=== PATIENT | female | born 1935 | race Caucasian/White ===

== ENCOUNTER 2016-07-05 08:17 | Inpatient (IN) | payer OTHER, MEDICARE ==
[~2016-07-05] VITALS: Ht 152.4 cm; Wt 56.6 kg
[2016-07-05] VITALS (21 sets, daily range): BP systolic 114–211; BP diastolic 54–99; PULSE 64–98; RESP 14–17; TEMP 96.8–97.9; O2SAT 97–100
[~2016-07-05 08:17] MED LIST: APIX5TAB PO; ATOR40TA16 PO; CARD240C6 PO; D31000CA; FURO20TA PO; HYDR50TA15 PO; LOSA100T PO; NOVOLOGSS SQ; POTA-243 PO
[2016-07-05] MEDS ORDERED: ETOMIDATE 20 MG/10 ML VIAL ONE (08:21)
[2016-07-05] MEDS ORDERED: SUCCINYLCHOLINE CHLORIDE 200 MG/10 ML VIAL ONE (08:22)
[2016-07-05] MEDS ORDERED: PROPOFOL 1000 MG/100 ML INJ 100 ML ONE (08:24)
[2016-07-05] MEDS ORDERED: niCARdipine INJ 25 MG in SODIUM CHLOR 0.9% 250 ML INJ 250 ML IV SCH (08:45)
[2016-07-05] MEDS ORDERED: ETOMIDATE 20 MG/10 ML VIAL IVP ONE (08:45)
[2016-07-05] MEDS ORDERED: SUCCINYLCHOLINE CHLORIDE 200 MG/10 ML VIAL IVP ONE (08:45)
[2016-07-05 09:08] LABS: AUTOMATED NEUTROPHIL # 12.6 TH/MM3 (1.8-7.7); BASOPHIL % 0.3 % (0.0-2.0); HEMATOCRIT 39.7 % (35.0-46.0); LYMPH % 7.1 % (9.0-44.0); MEAN CELL VOLUME 89.2 FL (80.0-100.0); MEAN CORPUSCULAR HEMOGLOBIN 29.7 PG (27.0-34.0); MEAN CORPUSCULAR HGB CONC 33.3 % (32.0-36.0); MONO % 3.7 % (0.0-8.0); NEUT % 88.9 % (16.0-70.0); PLATELET COUNT 312 TH/MM3 (150-450); RED BLOOD COUNT 4.45 MIL/MM3 (4.00-5.30); RED CELL DISTRIBUTION WIDTH 15.2 % (11.6-17.2); WHITE BLOOD COUNT 14.2 TH/MM3 (4.0-11.0)
--- NOTE | 2016-07-05 09:14 | RADRPT ---
EXAM DATE/TIME: 07/05/2016 08:38 [facility] COMPARISON: CHEST SINGLE AP, December 16, 2015, 3:38. INDICATIONS : Post intubation. MEDICAL HISTORY : Hypertension. Diabetes mellitus type 2. SURGICAL HISTORY : Hysterectomy. Bilateral knee surgery. ENCOUNTER: Initial ACUITY: 1 day PAIN SCORE: Non-responsive. LOCATION: Bilateral chest FINDINGS: Portable AP view of the chest demonstrates a normal-sized cardiac silhouette. Endotracheal tube dista l tip is at the aortic knob level measuring 4 cm from the ivonne. Nasogastric tube courses beyond the GE junction. No effusion, consolidation, or pneumothorax is visualized. Bones and soft tissues demon strate no acute finding. CONCLUSION: Endotracheal tube in appropriate position with tip measuring 4 cm from the ivonne. Otherwise, no acut e cardiopulmonary abnormality is identified. Issac Shipman MD on July 05, 2016 at 9:07 Board Certified Radiologist. This report was verified electronically.
--- NOTE | 2016-07-05 09:14 | RADRPT ---
EXAM DATE/TIME: 07/05/2016 08:56 [facility] COMPARISON: CT BRAIN W/O CONTRAST, December 16, 2015, 6:58. INDICATIONS : Altered mental status. RADIATION DOSE: 56.35 CTDIvol (mGy) MEDICAL HISTORY : Diabetes mellitus type 2. Cardiovascular disease Hypertension. SURGICAL HISTORY : Hysterectomy. ENCOUNTER: Initial ACUITY: 1 day PAIN SCALE: Non-responsive LOCATION: cranial TECHNIQUE: Multiple contiguous axial images were obtained of the head. Using automated exposure control and adj ustment of the mA and/or kV according to patient size, radiation dose was kept as low as reasonably a chievable to obtain optimal diagnostic quality images. FINDINGS: Comparison is December 2015. There is a remote lacunar infarct in left basal ganglia and left white m atter. Chronic white matter ischemic changes are relatively stable. No mass effect or midline shift. Stable ventricular size. Basal ganglia calcifications present. CONCLUSION: 1. Remote lacunar infarct left basal ganglia. Chronic white matter ischemic changes. No acute finding compared with December 2015. Silvio Ochoa MD on July 05, 2016 at 9:08 Board Certified Radiologist. This report was verified electronically.
[2016-07-05 09:15] LABS: HEMO FLAGS DIFF FINAL
[2016-07-05 09:16] LABS: APTT (PATIENT) 23.3 SEC (24.3-30.1); PROTHROMBIN TIME - PATIENT 10.5 SEC (9.8-11.6)
[2016-07-05] MEDS: PROPOFOL 1000 MG/100 ML INJ 100 ML IV SCH ×2 (09:16→14:42)
--- NOTE | 2016-07-05 09:19 | PD ---
HPI Chief Complaint: Altered Mental Status Time Seen by Provider: 08:31 Travel History International Travel<30 days: No Contact w/Intl Traveler<30days: No Traveled to known affect area: No History of Present Illness HPI Due to year-old female presents by ambulance with decreased mental status. They state that per the she had an acute change in her mentation since he had seen her last night and she had got out of bed. History is significantly limited. She was GCS 5 in route and would open her eyes to pain PFSH Past Medical History Narrative Medical By records Autoimmune Disease: No Cancer: No Cardiovascular Problems: Yes High Cholesterol: Yes Cerebrovascular Accident: Yes Diabetes: Yes Diminished Hearing: No Endocrine: Yes Genitourinary: Yes Headaches: Yes Hypertension: Yes Immune Disorder: No Implanted Vascular Access Dvce: Yes Musculoskeletal: Yes (BI LAT KNEE REPL) Neurologic: Yes Psychiatric: No Reproductive: No Respiratory: No Past Surgical History Narrative Surgical By records Eye Surgery: Yes (BILAT CATARACT) Genitourinary Surgery: Yes (MARY) Hysterectomy: Yes Joint Replacement: Yes (BILAT KNEE) Other Surgery: Yes Social History Alcohol Use: No Tobacco Use: No Substance Use: No Allergies-Medications (Allergen,Severity, Reaction): Coded Allergies: No Known Allergies (Unverified , 12/12/15) Reported Meds & Prescriptions Reported Meds & Active Scripts Active Novolog Inj (Insulin Aspart) 100 Unit/Ml Inj 1 Units SQ ACHS SLIDING SCALE 30 Days Hydralazine (Hydralazine HCl) 50 Mg Tab 50 Mg PO Q6H 30 Days Furosemide 20 Mg Tab 20 Mg PO DAILY 30 Days Eliquis (Apixaban) 5 Mg Tab 10 Mg PO BID 30 Days Cardizem CD 24 HR (Diltiazem CD 24 HR) 240 Mg Caper 240 Mg PO DAILY 30 Days Reported D3 (Cholecalciferol) 1,000 Unit Cap Klor-Con 10 (Potassium Chloride) 10 Meq Tab 10 Meq PO DAILY Atorvastatin (Atorvastatin Calcium) 40 Mg Tab 40 Mg PO HS Losartan (Losartan Potassium) 100 Mg Tab 100 Mg PO DAILY Review of Systems ROS Limitations: Clinical Condition Physical Exam Exam Limitations: Clinical Condition Narrative General: In severe distress, focused exam performed Skin: Warm and dry Eyes: Pupils equal at 2 mm Neck: Trachea midline Cardiovascular: Regular rate and rhythm Respiratory: Shallow respiratory effort noted, clear to auscultation bilaterally at apices Abdomen: Soft, nondistended Extremities: No edema noted Neuro: Moans to pain, opens eyes to pain, no movement noted Data Data Last Documented VS Vital Signs Date Time Temp Pulse Resp B/P Pulse Ox O2 Delivery O2 Flow Rate FiO2 07/05/16 09:34 74 16 114/54 98 Ventilator 10 07/05/16 09:09 97.5 07/05/16 09:00 50 Orders Etomidate Inj (Amidate Inj) (07/05/16 08:21) Succinylcholine Inj (Quelicin Inj) (07/05/16 08:22) Propofol 1000 Mg/100 Ml Inj (Diprivan 10 (07/05/16 08:24) Thyroid Stimulating Hormone (07/05/16 08:31) Magnesium (Mg) (07/05/16 08:31) Phosphorus (Po4) (07/05/16 08:31) Complete Blood Count With Diff (07/05/16 08:31) Comprehensive Metabolic Panel (07/05/16 08:31) Creatine Kinase (Cpk) (07/05/16 08:31) Ckmb (Isoenzyme) Profile (07/05/16 08:31) Troponin I (07/05/16 08:31) Urinalysis - C+S If Indicated (07/05/16 08:31) Act Partial Throm Time (Ptt) (07/05/16 08:31) Prothrombin Time / Inr (Pt) (07/05/16 08:31) Ct Brain W/O Iv Contrast(Rout) (07/05/16 ) B-Type Natriuretic Peptide (07/05/16 08:31) Arterial Blood Gas (Abg) (07/05/16 ) Chest, Single Ap (07/05/16 ) Electrocardiogram (07/05/16 ) Blood Culture (07/05/16 08:31) Iv Access Insert/Monitor (07/05/16 08:31) Ecg Monitoring (07/05/16 08:31) Oximetry (07/05/16 08:31) Type And Screen (07/05/16 08:31) Insert Temp Sensing Grimm Cath (07/05/16 08:31) Lactic Acid (07/05/16 08:31) Propofol 1000 Mg/100 Ml Inj (Diprivan 10 (07/05/16 08:45) ^ Infusion (07/05/16 08:31) RASS (07/05/16 08:31) Neurological Rass Scale BRADY.Q2H (07/05/16 08:31) Etomidate Inj (Amidate Inj) (07/05/16 08:45) Succinylcholine Inj (Quelicin Inj) (07/05/16 08:45) Sodium Chloride 0.9% Flush (Ns Flush) (07/05/16 08:45) Ng Gastric Tube Insert/Monitor (07/05/16 08:33) Nicardipine Inj (Cardene Inj) (07/05/16 08:45) Sodium Chlor 0.9% 1000 Ml Inj (Ns 1000 M (07/05/16 09:30) Urine Culture (07/05/16 08:40) Piperacil-Tazo 4.5 Gm Premix (Zosyn 4.5 (07/05/16 09:43) Sodium Chlor 0.9% 1000 Ml Inj (Ns 1000 M (07/05/16 09:45) Sodium Bicarbonate 8.4% Inj (Sodium Bica (07/05/16 09:45) Admit Order (Ed Use Only) (07/05/16 09:45) Labs Laboratory Tests Test 07/05/16 07/05/16 08:40 09:25 White Blood Count 14.2 TH/MM3 Red Blood Count 4.45 MIL/MM3 Hemoglobin 13.2 GM/DL Hematocrit 39.7 % Mean Corpuscular Volume 89.2 FL Mean Corpuscular Hemoglobin 29.7 PG Mean Corpuscular Hemoglobin 33.3 % Concent Red Cell Distribution Width 15.2 % Platelet Count 312 TH/MM3 Mean Platelet Volume 9.1 FL Neutrophils (%) (Auto) 88.9 % Lymphocytes (%) (Auto) 7.1 % Monocytes (%) (Auto) 3.7 % Eosinophils (%) (Auto) 0.0 % Basophils (%) (Auto) 0.3 % Neutrophils # (Auto) 12.6 TH/MM3 Lymphocytes # (Auto) 1.0 TH/MM3 Monocytes # (Auto) 0.5 TH/MM3 Eosinophils # (Auto) 0.0 TH/MM3 Basophils # (Auto) 0.0 TH/MM3 CBC Comment DIFF FINAL Differential Comment Prothrombin Time 10.5 SEC Prothromb Time International 1.0 RATIO Ratio Activated Partial 23.3 SEC Thromboplast Time Urine Color YELLOW Urine Turbidity HAZY Urine pH 5.5 Urine Specific [place] 1.013 Urine Protein 100 mg/dL Urine Glucose (UA) NEG mg/dL Urine Ketones 10 mg/dL Urine Occult Blood NEG Urine Nitrite POS Urine Bilirubin NEG Urine Urobilinogen LESS THAN 2.0 MG/DL Urine Leukocyte Esterase NEG Urine RBC 3 /hpf Urine WBC 2 /hpf Urine Squamous Epithelial 1 /hpf Cells Urine Bacteria MANY /hpf Urine Mucus FEW /lpf Microscopic Urinalysis Comment CULTURE INDICATED Sodium Level 142 MEQ/L Potassium Level 3.7 MEQ/L Chloride Level 109 MEQ/L Carbon Dioxide Level 18.8 MEQ/L Anion Gap 14 MEQ/L Blood Urea Nitrogen 29 MG/DL Creatinine 1.88 MG/DL Estimat Glomerular Filtration 26 ML/MIN Rate Random Glucose 220 MG/DL Lactic Acid Level 1.3 mmol/L Calcium Level 9.9 MG/DL Phosphorus Level 2.9 MG/DL Magnesium Level 2.3 MG/DL Total Bilirubin 0.4 MG/DL Aspartate Amino Transf 25 U/L (AST/SGOT) Alanine Aminotransferase 23 U/L (ALT/SGPT) Alkaline Phosphatase 103 U/L Total Creatine Kinase 49 U/L Troponin I 0.06 NG/ML B-Type Natriuretic Peptide 392 PG/ML Total Protein 7.0 GM/DL Albumin 3.9 GM/DL Thyroid Stimulating Hormone 1.850 uIU/ML 3rd Gen Blood Type O POSITIVE Antibody Screen NEGATIVE Blood Bank Comment Blood Gas Puncture Site RT RADIAL Blood Gas Patient Temperature 98.6 Blood Gas HCO3 16 mmol/L Blood Gas Base Excess -7.6 mmol/L Blood Gas Oxygen Saturation 98 % Arterial Blood pH 7.42 Arterial Blood Partial 25 mmHg Pressure CO2 Arterial Blood Partial 282 mmHG Pressure O2 Arterial Blood Oxygen Content 18.0 Vol % Arterial Blood 0.9 % Carboxyhemoglobin Arterial Blood Methemoglobin 1.1 % Blood Gas Hemoglobin 12.6 G/DL Oxygen Delivery Device VENTILATOR Blood Gas Ventilator Setting AC12/500/5PEEP Blood Gas Inspired Oxygen 50 % MDM Medical Decision Making Medical Screen Exam Complete: Yes Emergency Medical Condition: Yes Medical Record Reviewed: Yes (past history confirmed) Interpretation(s) CBC & BMP Diagram 07/05/16 08:40 Last [address] 07/05/16 0000 Signed Impressions: Service Date/Time: June 08:56 - CONCLUSION: 1. Remote lacunar infarct left basal ganglia. Chronic white matter ischemic changes. No acute finding compared with December 2015. Silvio Ochoa MD Chest X-Ray 07/05/16 0000 Signed Impressions: Service Date/Time: June 08:38 - CONCLUSION: Endotracheal tube in appropriate position with tip measuring 4 cm from the ivonne. Otherwise , no acute cardiopulmonary abnormality is identified. Issac Shipman MD EKG is sinus rhythm at 100 without STEMI criteria but limited with wandering baseline especially V1 Differential Diagnosis Bleed, stroke, mass, UTI, sepsis Narrative Course Patient arrived with depressed GCS and was intubated for airway protection. Patient started on propofol given hypertension, Will check blood work, imaging, urinalysis and closely monitor Patient's blood pressure remained elevated so Cardene was added and I went with patient to CT. No large bleed noted Updated patient's and he states that she is wheelchair-bound but will talk and interact with him at home. He states he is working on setting up detention care for her to increase her amount of care needed. He states that she wasn't complaining about anything yesterday but had not gotten out of bed so he called the ambulance. updated and agrees to admit, bp dropping to quickly so cardene decreased and help until sbp greater or equal to 180 given no intracranial bleed on ct and possible stroke versus hypertensive encephalopathy Critical Care Narrative Aggregate critical care time was 45 minutes. Time to perform other separately billable procedures was not included in the critical care time. My time did not include minutes spent treating any other patients simultaneously or on activities that did not directly contribute to the patient's treatment. The services I provided to this patient were to treat and/or prevent clinically significant deterioration that could result in: shock, I provided critical care services requiring my management, as noted below: Chart data review, documentation time, medication orders and management, vital sign assessments/reviewing monitor data, ordering and reviewing lab tests, ordering and interpreting/reviewing x-rays and diagnostic studies, care of the patient and discussion of the patient with the admitting physicians. Procedures Procedure Narrative Emergently performed: INTUBATION: The patient was put in optimal position for the procedure. Rapid sequence intubation was initiated by me using 20 milligrams of etomidate IV and 100 milligrams of succinylcholine IV. The patient was intubated with a 7.5 cuffed endotracheal tube. Tube placement was confirmed by visualization of the tube and balloon passing through the cords, capnometry and subsequent chest x- ray. Breath sounds were equal and well aerated bilaterally postintubation. No breath sounds over stomach. Patient tolerated procedure well. Sepsis Criteria SIRS Criteria (2 or more): Heart rate over 90, WBC > 64309, < 4000 or > 10% bands Sepsis Criteria (SIRS+source): Infect source susp/known Criteria Outcome: Meets sepsis criteria Physician Communication Physician Communication dr mak agrees to admit, states needs mri Diagnosis Primary Impression: Metabolic encephalopathy Additional Impressions: Acute respiratory failure Qualified Code: J96.00 - Acute respiratory failure, unspecified whether with hypoxia or hypercapnia UTI (urinary tract infection) Qualified Code: N39.0 - Urinary tract infection without hematuria, site unspecified Admitting Information Admitting Physician Requests: Admit Cherry Aquino MD July 05, 2016 09:19
[2016-07-05 09:22] LABS: BACTERIA, URINE MANY /hpf; BLOOD, URINE NEG (NEG); COMMENT (UR) CULTURE INDICATED; CULTURE IF INDICATED CULTURE INDICATED; GLUCOSE,URINE NEG (NEG); KETONE, URINE 10 mg/dL (NEG); MUCUS URINE FEW /lpf (OCC); PH, URINE 5.5 (5.0-8.5); SQUAMOUS EPITHELIAL CELL URINE 1 /hpf (0-5); URINE COLOR YELLOW (YELLW/STRAW)
[2016-07-05 09:29] LABS: ALT (GPT) 23 U/L (10-53); ANION GAP 14 MEQ/L (5-15); AST (GOT) 25 U/L (15-37); BICARBONATE 18.8 MEQ/L (21.0-32.0); BLOOD UREA NITROGEN 29 MG/DL (7-18); CHLORIDE 109 MEQ/L (98-107); GLOMERULAR FILTRATION RATE 26 ML/MIN (>89); MAGNESIUM 2.3 MG/DL (1.5-2.5); POTASSIUM 3.7 MEQ/L (3.5-5.1); SODIUM (NA) 142 MEQ/L (136-145)
[2016-07-05 09:30] LABS: BLOOD GAS BASE EXCESS -7.6 mmol/L (-2-2); BLOOD GAS CARBOXYHEMOGLOBIN 0.9 % (0-4); BLOOD GAS HCO3 16 mmol/L (22-26); BLOOD GAS METHEMOGLOBIN 1.1 % (0-2); BLOOD GAS O2 HGB SATURATION 98 % (90-100); BLOOD GAS PCO2 25 mmHg (38-42); BLOOD GAS PO2 282 mmHG (61-120); BLOOD GAS TOTAL HGB 12.6 G/DL (12.0-16.0); CRITICAL VALUE YES; DRAW SITE RT RADIAL; FIO2 50 %; NUMBER OF ARTERIAL PUNCTURES 1; OXYGEN DEVICE VENTILATOR; STAT YES; TEMP CORR TO 98.6; ULNAR PULSE Y; VENT SETTINGS AC12/500/5PEEP
[2016-07-05] MEDS ORDERED: SODIUM CHLOR 0.9% 1000 ML INJ 1,000 ML IV ONE ×2 (09:30→09:45)
[2016-07-05 09:32] LABS: NITRITE,URINE POS (NEG)
[2016-07-05 09:40] LABS: ALKALINE PHOSPHATASE 103 U/L (45-117); TOTAL BILIRUBIN ADULT 0.4 MG/DL (0.2-1.0)
[2016-07-05 09:43] LABS: CREATINE KINASE 49 U/L (26-192)
[2016-07-05] MEDS ORDERED: PIPERACIL-TAZO 4.5 GM PREMIX 100 ML IV STA (09:43)
[2016-07-05] MEDS ORDERED: SODIUM BICARBONATE 8.4% INJ 50 MEQ/50 ML SYR IV PUSH ONE (09:45)
[2016-07-05] MEDS ORDERED: CHLORHEXIDINE GLUCONATE 2 % 1 PACK (2 CLOTHS) TOP PRN (10:30)
[2016-07-05] MEDS ORDERED: DEXTROSE 50% IN WATER 50 ML VIAL(D50) IV PRN (10:30)
[2016-07-05] MEDS ORDERED: PIPERACIL-TAZO 4.5 GM PREMIX 100 ML IV SCH (10:30)
[2016-07-05] MEDS ORDERED: GLUCAGON 1 MG/ML VIAL OTHER PRN (10:30)
[2016-07-05] MEDS ORDERED: SODIUM BICARBONATE 8.4% INJ 50 ML ONE (10:30)
[2016-07-05] MEDS ORDERED: MISCELLANEOUS NURSING INFORMATION XX SCH (10:30)
[2016-07-05] MEDS: HEPARIN SODIUM - SQ 10,000 UNITS/ML VIAL SQ SCH ×2 (11:00→23:44)
[2016-07-05] MEDS: RESP: ALBUTEROL 2.5 MG/IPRATROPIUM 0.5 MG NEB (SCH) INH ×3 (11:04→21:32)
[2016-07-05] MEDS: PANTOPRAZOLE SODIUM 40 MG VIAL IV SCH (11:08)
[2016-07-05] MEDS: INSULIN NovoLIN REGULAR SUPPLEMENTAL SCALE SQ SCH ×4 (11:25→23:00)
--- NOTE | 2016-07-05 12:35 | RADRPT ---
EXAM DATE/TIME: 07/05/2016 12:08 [facility] COMPARISON: No previous studies available for comparison. INDICATIONS : Bilateral leg swelling. MEDICAL HISTORY : Hypercholesterolemia. Hypertension. Osteoporosis. CVA. Renal disease. Diabetes. SURGICAL HISTORY : Hysterectomy. Bilateral cataract. Bilateral knee replacements. ENCOUNTER: Initial ACUITY: 1 day PAIN SCORE: Non-responsive LOCATION: Bilateral leg. TECHNIQUE: Venous ultrasound of the left and right leg was performed from the inguinal ligament to the proximal calf. Real-time, color Doppler and spectral tracing, compression and augmentation techniques were us ed. FINDINGS: RIGHT LEG: There is normal compressibility of the deep venous system from the inguinal region to the proximal ca lf. No echogenic clot is seen in the lumen of the common femoral, femoral, popliteal, and posterior tibial veins. There is a normal response of the venous system to proximal and distal augmentation an d respiration. LEFT LEG: There is normal compressibility of the deep venous system from the inguinal region to the proximal ca lf. No echogenic clot is seen in the lumen of the common femoral, femoral, popliteal, and posterior tibial veins. There is a normal response of the venous system to proximal and distal augmentation an d respiration. CONCLUSION: Normal examination. Issac Mead MD on July 05, 2016 at 12:33 Board Certified Radiologist. This report was verified electronically.
--- NOTE | 2016-07-05 12:45 | MH ---
cc: JANES ALLEN M.D. DATE OF ADMISSION: 07/05/2016 DATE OF : 1935, HISTORY OF PRESENT ILLNESS: The patient is an 80-year-old female with past medical history of dementia, hypertension, hyperlipidemia, TIA, diabetes mellitus and DVT of right lower extremity. She presented to the emergency department via ambulance with altered mental status. According to her she was unresponsive at 07:30 this morning and he called the -- and she was found to have Kathi Coma Scale score of 5, En route. The patient was intubated with etomidate, succinylcholine and placed on full mechanical ventilation for airway protection. A CT scan of the brain was obtained which showed a remote coronary infarct, left basal ganglia and chronic white matter ischemic changes. No acute findings identified. Her laboratory data showed leukocytosis with WBC of 14.2 and acute kidney injury with creatinine level of 1.88. Her lactic acid level measured at 1.3. ABG post intubation showed adenosine showed a pH of 7.42, CO2 25, pAO2 282, bicarb 16, saturation 98% on assist control ventilation with a rate of 12, tidal volume 500, PEEP of five and FIO2 50%. Chest x-ray Post intubation showed ET tube above the ivonne, otherwise no acute cardiopulmonary abnormalities identified. She was given 2 liters of crystalloids in the ER along with Zosyn and Sodium bicarb. On arrival as she was hypertensive with a blood pressure of 211/99 and initially the patient was placed on Cardene drip. However it was turned off post extubation a poor however it was turned off pump post intubation. Her current blood pressure is 189/85 with a pulse of 83. Fluid. Showed. PAST MEDICAL HISTORY: 1. No past medical history significant for dementia. 2. Hypertension. 3. Hyperlipidemia. 4. Diabetes mellitus. 5. History of deep venous thrombosis. 6. Right lower extremity. PAST SURGICAL HISTORY 1. Previous cataract surgery. 2. Previous a total abdominal hysterectomy. 3. Previous bilateral knee replacement. ALLERGIES NO KNOWN DRUG ALLERGIES. SOCIAL HISTORY Nonsmoker, nondrinker. REVIEW OF SYSTEMS As per as per HPI. The rest of the systems is limited. PHYSICAL EXAMINATION: Physical exam 80-year-old female. MEDICATIONS Medications include 1. NovoLog. 2. Insulin. 3. Hydralazine. 4. Lasix. 5. Cardizem CD Eliquis. 6. Losartan true. 7. Statin. 8. Vitamin D. REVIEW OF SYSTEMS As per HPI, review of systems limited. PHYSICAL EXAMINATION: Physical exam 80-year-old female intubated for airway infection. VITAL SIGNS: Temperature of 96.8, pulse of 83, blood pressure 189/85 currently saturation 96% vent setting assist control rate of 12, tidal line 500, PEEP of five, FIO2 50% in the ED with a HEAD, EYES, EARS, NOSE, AND THROAT: Atraumatic, normocephalic pupil equal and active to accommodation X on muscles intact. Conjunctivae pink. Nonicteric sclerae. Oral mucosa within normal. NECK: Supple. No JVD, adenopathy or thyromegaly. Trachea midline. Orally intubated. CHEST: Regular rate and rhythm. Normal S1-S2. No murmurs, rubs or gallops noted. LUNGS: Pulmonary exam bilateral equal entry. No rales or wheezing. ABDOMEN: Soft, nontender, no distension. Positive bowel sounds. EXTREMITIES: No cyanosis or edema. NEUROLOGIC: Intubated and sedated with Diprivan. LABORATORY DATA Sodium 42,003.7, chloride 109, CO2 18.8, BUN 29, creatinine 1.88, glucose of 220, lactic acid 1.3, troponin 0.06, BNP 392, TSH 1.85 WBCs 14.29, hemoglobin 13.2, hematocrit 39, platelet count 312, INR one, PT 10.5, PTT 23.3. RADIOGRAPHY Chest x-ray Post intubation showed ET tube above the ivonne. No acute cardiopulmonary abnormalities. CT scan of the brain showed old lipoma infarcts in no acute abnormalities identified. EKG showed sinus. He sinus rhythm with rate of 96 beats per minute. Nonspecific ST-T wave abnormalities. IMPRESSION 1. Vent dependent respiratory failure. 2. Encephalopathy. 3. Hypertensive urgency rule out press 4. Leukocytosis 5. Urinary tract infection. 6. Acute kidney injury. 7. Hyperglycemia with underlying history of diabetes mellitus. 8. Hyperlipidemia. 9. Dementia history. 10. Deep venous thrombosis. RECOMMENDATIONS 1. Continue Diprivan infusion for sedation and daily sedation vacation. 2. Monitor neuro status closely. 3. CT scan of the brain in the ER showed no acute intracranial abnormalities. 4. Will proceed with MRI of the brain without contrast. 5. Will be to rule out pressors syndrome 6. Will consult neurology service and will obtain an EEG. 7. Continue with vent support and maintain sats above 92%. 8. Bronchodilators informed DuoNeb q. six and will initiate ICU vent bundle. 9. Decrease tidal volume to 350. Monitor heart rate and blood pressure closely and maintain MAP above 60. 10. I will place on hydralazine 50 milligrams q. 8 hours. 11. Echocardiogram from December 2015 showed an ejection fraction of 65-70% with no regional wall motion abnormalities. 12. Monitor renal function Is and Os and avoid nephrotoxins. Continue with IV hydration will place on normal saline at 75 an hour. 13. Keep n.p.o. for now and place on Protonix 40 mg IV daily for GI prophylaxis. 14. Nutritional support and we will start tube feeds within next 24 hours if remains intubated. 15. Continue with empiric antibiotics in the form of Zosyn and monitor for signs of infections which include fever and WBC. Follow up on blood and urine cultures. 16. Place on sliding scale insulin medium scale with Accu-Chek q. 6-hour onset q. 4-hour for glycemic control. 17. A TSH measured 1.85 18. GI prophylaxis with Protonix 40 mg daily and DVT prophylaxis with SCDs and will resume Eliquis of 5 mg b.i.d. 19. We will place on a heparin 5000 units q. 12-hour. 20. Will obtain Doppler ultrasound bilateral lower extremity to rule out DVT. 21. The patient had ultrasound in December 2015 which showed a DVT of the right lower extremity. 22. Further recommendations will be based on hospital course. 23. Critical care time 40 minutes excluding procedures. MD REAGAN Martin/marissa /12:00 PM /12:17 PM DOM
[2016-07-05 14:39] LABS: BLOOD GAS BASE EXCESS -3.2 mmol/L (-2-2); BLOOD GAS CARBOXYHEMOGLOBIN 1.1 % (0-4); BLOOD GAS HCO3 22 mmol/L (22-26); BLOOD GAS METHEMOGLOBIN 1.5 % (0-2); BLOOD GAS O2 HGB SATURATION 96 % (90-100); BLOOD GAS OXYGEN CONTENT 17.3 Vol % (12.0-20.0); BLOOD GAS PCO2 40 mmHg (38-42); BLOOD GAS PO2 121 mmHg (61-120); BLOOD GAS TOTAL HGB 12.7 G/DL (12.0-16.0); CRITICAL VALUE NO; OXYGEN DEVICE VENTILATOR; TEMP CORR TO 98.6
[2016-07-05 14:40] LABS: DRAW SITE RT RADIAL; FIO2 40 %; NUMBER OF ARTERIAL PUNCTURES 1; STAT NO; ULNAR PULSE PRESENT; VENT SETTINGS AC/12/350/PEEP5
--- NOTE | 2016-07-05 16:12 | RADRPT ---
EXAM DATE/TIME: 07/05/2016 15:14 [facility] COMPARISON: MRI BRAIN W/O CONTRAST, December 16, 2015, 15:17. INDICATIONS : CVA. Found unresponsive. MEDICAL HISTORY : Diabetes mellitus type 2. Hypertension. Kidney disease. SURGICAL HISTORY : Hysterectomy. Total knee replacement, left. Total knee replacement, right. ENCOUNTER: Subsequent ACUITY: 1 day PAIN SCORE: Nonresponsive. LOCATION: head. TECHNIQUE: Multiplanar, multisequence MRI of the brain was performed without contrast. FINDINGS: Compare December 2015. There is moderate chronic ischemic change in the appearance of the white matte r with remote lacunar infarcts on the left. No recent infarct identified on the diffusion weighted im ages. There is cortical volume loss. No hydrocephalus. CONCLUSION: 1. No acute findings. Chronic white matter ischemic changes. No recent infarct. Basal ganglia calcifi cations. Silvio Ochoa MD on July 05, 2016 at 16:05 Board Certified Radiologist. This report was verified electronically.
--- NOTE | 2016-07-05 16:44 | EKG ---
Date Performed: 07/05/2016 Time Performed: 08:35:20 PTAGE: 80 years EKG: Sinus rhythm NONSPECIFIC ST & T-WAVE ABNORMALITY BORDERLINE ECG PREVIOUS TRACING : 12/16/2015 13.11 Compared to the previous tracing rate has increased DOCTOR: Sánchez Burr Interpretating Date/Time 07/05/2016 16:43:14
[2016-07-05] MEDS: PIPERACIL-TAZO 2.25 GM PREMIX 50 ML IV SCH (18:26)
[2016-07-05] MEDS: hydrALAZINE HCL 20 MG/ML VIAL IV PRN (21:40)
[2016-07-06] VITALS (19 sets, daily range): BP systolic 133–170; BP diastolic 62–80; PULSE 62–86; RESP 15–18; TEMP 97.4–98.6; O2SAT 97–100
[2016-07-06] MEDS: PROPOFOL 1000 MG/100 ML INJ 100 ML IV SCH (01:52)
[2016-07-06] MEDS: PIPERACIL-TAZO 2.25 GM PREMIX 50 ML IV SCH ×3 (01:52→17:04)
[2016-07-06] MEDS: INSULIN NovoLIN REGULAR SUPPLEMENTAL SCALE SQ SCH ×6 (03:00→23:00)
[2016-07-06] MEDS: CHLORHEXIDINE GLUCONATE 2 % 1 PACK (2 CLOTHS) TOP SCH (03:26)
[2016-07-06 04:38] LABS: BASOPHIL % 0.1 % (0.0-2.0); HEMATOCRIT 38.2 % (35.0-46.0); HEMO FLAGS DIFF FINAL; LYMPH % 3.6 % (9.0-44.0); LYMPHOCYTE # 0.7 TH/MM3 (1.0-4.8); MEAN CELL VOLUME 89.8 FL (80.0-100.0); MEAN CORPUSCULAR HGB CONC 32.3 % (32.0-36.0); MONO % 6.4 % (0.0-8.0); NEUT % 89.9 % (16.0-70.0); PLATELET COUNT 233 TH/MM3 (150-450); RED BLOOD COUNT 4.26 MIL/MM3 (4.00-5.30); RED CELL DISTRIBUTION WIDTH 15.1 % (11.6-17.2); WHITE BLOOD COUNT 18.9 TH/MM3 (4.0-11.0)
[2016-07-06] MEDS: RESP: ALBUTEROL 2.5 MG/IPRATROPIUM 0.5 MG NEB (SCH) INH ×4 (04:52→19:48)
[2016-07-06 04:59] LABS: BICARBONATE 24.2 MEQ/L (21.0-32.0)
[2016-07-06 05:07] LABS: POTASSIUM 2.8 MEQ/L (3.5-5.1)
[2016-07-06] MEDS: hydrALAZINE HCL 20 MG/ML VIAL IV PRN (05:35)
[2016-07-06] MEDS ORDERED: MAGNESIUM SULFATE INJ 2 GM in SODIUM CHLORIDE 0.9% INJ 96 ML IV PRN (07:45)
[2016-07-06] MEDS ORDERED: POTASSIUM PHOSPHATE MONOBASIC 500 MG TAB PO PRN (07:45)
[2016-07-06] MEDS ORDERED: MAGNESIUM OXIDE 400 MG TAB PO PRN (07:45)
[2016-07-06] MEDS ORDERED: POTASSIUM CHLOR 40 MEQ PREMIX 100 ML IV PRN ×2 (07:45)
[2016-07-06] MEDS ORDERED: POTASSIUM CHLORIDE 25 MEQ EFFERVESCENT TAB PO PRN (07:45)
[2016-07-06] MEDS ORDERED: POTASSIUM PHOSPHATE MONOBASIC 500 MG TAB PO/TUBE PRN (07:45)
[2016-07-06] MEDS ORDERED: MAGNESIUM SULFATE INJ 4 GM in SODIUM CHLORIDE 0.9% INJ 92 ML IV PRN (07:45)
[2016-07-06] MEDS ORDERED: SODIUM PHOSPHATE INJ 30 MMOL in SODIUM CHLOR 0.9% 250 ML INJ 240 ML IV PRN (07:45)
[2016-07-06] MEDS ORDERED: POTASSIUM CHLOR 20 MEQ PREMIX 100 ML IV PRN (07:45)
--- NOTE | 2016-07-06 07:47 | HHI.CCPN ---
Subjective Remarks/Hospital Course The patient is an 80-year-old female with past medical history of dementia, hypertension, hyperlipidemia, TIA, diabetes mellitus and DVT of right lower extremity. She presented to the emergency department via ambulance with altered mental status. According to her she was unresponsive at 07:30 this morning and he called the and she was found to have Kathi Coma Scale score of 5, En route. The patient was intubated with etomidate, succinylcholine and placed on full mechanical ventilation for airway protection. A CT scan of the brain was obtained which showed a remote coronary infarct, left basal ganglia and chronic white matter ischemic changes. No acute findings identified. Her laboratory data showed leukocytosis with WBC of 14.2 and acute kidney injury with creatinine level of 1.88. Her lactic acid level measured at 1.3. ABG post intubation showed adenosine showed a pH of 7.42 , CO2 25, pAO2 282, bicarb 16, saturation 98% on assist control ventilation with a rate of 12, tidal volume 500, PEEP of five and FIO2 50%. Chest x-ray Post intubation showed ET tube above the ivonne, otherwise no acute cardiopulmonary abnormalities identified. She was given 2 liters of crystalloids in the ER along with Zosyn and Sodium bicarb. On arrival as she was hypertensive with a blood pressure of 211/99 and initially the patient was placed on Cardene drip. However it was turned off post extubation a poor however it was turned off pump post intubation. Her current blood pressure is 189/85 with a pulse of 83. 26 Patient is sedated with Diprivan and intubated. MRI and CT brain yesterday showed no acute intracranial abnormalities. For EEG today. Afebrile. Objective Vital Signs Date Time Temp Pulse Resp B/P Pulse Ox O2 Delivery O2 Flow Rate FiO2 07/06/16 06:00 72 07/06/16 04:49 99 40 07/06/16 04:00 97.8 17 133/62 07/05/16 20:29 Ventilator 07/05/16 11:41 10 Intake and Output 07/05/16 07/05/16 07/06/16 08:00 16:00 00:00 Intake Total 18 ml 110 ml Output Total 1175 ml 250 ml Balance -1157 ml -140 ml Result Diagram: 07/06/16 0303 07/06/16 0303 Other Results Laboratory Tests Test 07/05/16 07/05/16 07/05/16 07/05/16 08:40 09:25 13:00 14:29 White Blood Count 14.2 TH/MM3 Red Blood Count 4.45 MIL/MM3 Hemoglobin 13.2 GM/DL Hematocrit 39.7 % Mean Corpuscular Volume 89.2 FL Mean Corpuscular Hemoglobin 29.7 PG Mean Corpuscular Hemoglobin 33.3 % Concent Red Cell Distribution Width 15.2 % Platelet Count 312 TH/MM3 Mean Platelet Volume 9.1 FL Neutrophils (%) (Auto) 88.9 % Lymphocytes (%) (Auto) 7.1 % Monocytes (%) (Auto) 3.7 % Eosinophils (%) (Auto) 0.0 % Basophils (%) (Auto) 0.3 % Neutrophils # (Auto) 12.6 TH/MM3 Lymphocytes # (Auto) 1.0 TH/MM3 Monocytes # (Auto) 0.5 TH/MM3 Eosinophils # (Auto) 0.0 TH/MM3 Basophils # (Auto) 0.0 TH/MM3 CBC Comment DIFF FINAL Differential Comment Prothrombin Time 10.5 SEC Prothromb Time International 1.0 RATIO Ratio Activated Partial 23.3 SEC Thromboplast Time Urine Color YELLOW Urine Turbidity HAZY Urine pH 5.5 Urine Specific Kerby 1.013 Urine Protein 100 mg/dL Urine Glucose (UA) NEG mg/dL Urine Ketones 10 mg/dL Urine Occult Blood NEG Urine Nitrite POS Urine Bilirubin NEG Urine Urobilinogen LESS THAN 2.0 MG/DL Urine Leukocyte Esterase NEG Urine RBC 3 /hpf Urine WBC 2 /hpf Urine Squamous Epithelial 1 /hpf Cells Urine Bacteria MANY /hpf Urine Mucus FEW /lpf Microscopic Urinalysis Comment CULTURE INDICATED Sodium Level 142 MEQ/L Potassium Level 3.7 MEQ/L Chloride Level 109 MEQ/L Carbon Dioxide Level 18.8 MEQ/L Anion Gap 14 MEQ/L Blood Urea Nitrogen 29 MG/DL Creatinine 1.88 MG/DL Estimat Glomerular Filtration 26 ML/MIN Rate Random Glucose 220 MG/DL Lactic Acid Level 1.3 mmol/L Calcium Level 9.9 MG/DL Phosphorus Level 2.9 MG/DL Magnesium Level 2.3 MG/DL Total Bilirubin 0.4 MG/DL Aspartate Amino Transf 25 U/L (AST/SGOT) Alanine Aminotransferase 23 U/L (ALT/SGPT) Alkaline Phosphatase 103 U/L Total Creatine Kinase 49 U/L Troponin I 0.06 NG/ML B-Type Natriuretic Peptide 392 PG/ML Total Protein 7.0 GM/DL Albumin 3.9 GM/DL Thyroid Stimulating Hormone 1.850 uIU/ML 3rd Gen Blood Type O POSITIVE Antibody Screen NEGATIVE Blood Bank Comment Blood Gas Puncture Site RT RADIAL RT RADIAL Blood Gas Patient Temperature 98.6 98.6 Blood Gas HCO3 16 mmol/L 22 mmol/L Blood Gas Base Excess -7.6 mmol/L -3.2 mmol/L Blood Gas Oxygen Saturation 98 % 96 % Arterial Blood pH 7.42 7.35 Arterial Blood Partial 25 mmHg 40 mmHg Pressure CO2 Arterial Blood Partial 282 mmHG 121 mmHg Pressure O2 Arterial Blood Oxygen Content 18.0 Vol % 17.3 Vol % Arterial Blood 0.9 % 1.1 % Carboxyhemoglobin Arterial Blood Methemoglobin 1.1 % 1.5 % Blood Gas Hemoglobin 12.6 G/DL 12.7 G/DL Oxygen Delivery Device VENTILATOR VENTILATOR Blood Gas Ventilator Setting AC12/500/5PEEP AC/12/350/PEEP5 Blood Gas Inspired Oxygen 50 % 40 % Nasal Screen MRSA (PCR) MRSA NOT DETECTED Test 07/06/16 03:03 White Blood Count 18.9 TH/MM3 Red Blood Count 4.26 MIL/MM3 Hemoglobin 12.3 GM/DL Hematocrit 38.2 % Mean Corpuscular Volume 89.8 FL Mean Corpuscular Hemoglobin 29.0 PG Mean Corpuscular Hemoglobin 32.3 % Concent Red Cell Distribution Width 15.1 % Platelet Count 233 TH/MM3 Mean Platelet Volume 8.9 FL Neutrophils (%) (Auto) 89.9 % Lymphocytes (%) (Auto) 3.6 % Monocytes (%) (Auto) 6.4 % Eosinophils (%) (Auto) 0.0 % Basophils (%) (Auto) 0.1 % Neutrophils # (Auto) 17.0 TH/MM3 Lymphocytes # (Auto) 0.7 TH/MM3 Monocytes # (Auto) 1.2 TH/MM3 Eosinophils # (Auto) 0.0 TH/MM3 Basophils # (Auto) 0.0 TH/MM3 CBC Comment DIFF FINAL Differential Comment Sodium Level 148 MEQ/L Potassium Level 2.8 MEQ/L Chloride Level 110 MEQ/L Carbon Dioxide Level 24.2 MEQ/L Anion Gap 14 MEQ/L Blood Urea Nitrogen 25 MG/DL Creatinine 1.67 MG/DL Estimat Glomerular Filtration 29 ML/MIN Rate Random Glucose 171 MG/DL Calcium Level 8.8 MG/DL Phosphorus Level 3.1 MG/DL Magnesium Level 2.0 MG/DL Imaging Last Impressions Lower Extremity Ultrasound 07/05/16 Signed Impressions: Service Date/Time: June 12:08 - CONCLUSION: Normal examination. Issac Mead MD Head CT 07/05/16 Signed Impressions: Service Date/Time: June 08:56 - CONCLUSION: 1. Remote lacunar infarct left basal ganglia. Chronic white matter ischemic changes. No acute finding compared with December 2015. Silvio Ochoa MD Chest X-Ray 07/05/16 Signed Impressions: Service Date/Time: June 08:38 - CONCLUSION: Endotracheal tube in appropriate position with tip measuring 4 cm from the ivonne. Otherwise , no acute cardiopulmonary abnormality is identified. Issac Shipman MD Brain MRI 07/05/16 Signed Impressions: Service Date/Time: June 15:14 - CONCLUSION: 1. No acute findings. Chronic white matter ischemic changes. No recent infarct. Basal ganglia calcifications. Silvio Ochoa MD Objective Remarks GENERAL: Patient is 80 yo intubated and sedated SKIN: Warm and dry. HEAD: Normocephalic. EYES: No scleral icterus. No injection or drainage. NECK: Supple, trachea midline. No JVD or lymphadenopathy. CARDIOVASCULAR: Regular rate and rhythm without murmurs, gallops, or rubs. RESPIRATORY: Breath sounds equal bilaterally. No accessory muscle use. GASTROINTESTINAL: Abdomen soft, non-tender, nondistended. MUSCULOSKELETAL: No cyanosis, or edema. Neuro: Sedated A/P Assessment and Plan 1. Vent dependent respiratory failure. 2. Encephalopathy. 3. Hypertension 4. Leukocytosis 5. Urinary tract infection. 6. Acute kidney injury...improving 7. Hyperglycemia with underlying history of diabetes mellitus. 8. Hyperlipidemia. 9. Dementia history. 10. Hx DVT RLE 12/2015 Plan Neuro: On Diprivan infusion for sedation and daily sedation vacation. Monitor neuro status CT brain/MRI brain: no acute intracranial abnormalities. For EEG today, neuro consulted- Dr. Taylor. Pulm: Continue with vent support and maintain sats above 92%. Bronchodilators, ICU vent bundle. Start SBT daily as nilda. CV: Monitor heart rate and blood pressure closely and maintain MAP >65mmHg On hydralazine 50 milligrams q. 8 hours. Echo from December 2015 showed EF of 65-70% with no regional wall motion abnormalities. : Monitor renal function Is and Os and avoid nephrotoxins. Electrolytes replacement per protocol. Place on 1/2NS@75ml/hr, will need K replacement today. GI: on Protonix 40 mg IV daily for GI prophylaxis. Start tube feeds today if remains intubated. ID: Continue with abx (Zosyn) and monitor for signs of infections(fever and WBC) . Follow up on blood and urine cultures. Endo: SSI medium scale with Accu-Chek q. 4 hr for glycemic control. TSH measured 1.85 GI prophylaxis with Protonix 40 mg daily and DVT prophylaxis with SCDs /Heparin SQ Doppler US LE negative for DVT Level 3 Jacinto Garcia MD July 06, 2016 07:47
[2016-07-06] MEDS: PANTOPRAZOLE SODIUM 40 MG VIAL IV SCH (09:49)
[2016-07-06] MEDS: POTASSIUM CHLOR 20 MEQ PREMIX 100 ML IV PRN ×2 (09:49→12:26)
[2016-07-06] MEDS: HEPARIN SODIUM - SQ 10,000 UNITS/ML VIAL SQ SCH ×2 (12:21→22:37)
[2016-07-06] MEDS: SODIUM CHLOR 0.45% 1000 ML INJ 1,000 ML IV SCH (18:00)
--- NOTE | 2016-07-06 20:07 | MB ---
cc: TIAGO ZHU M.D. DATE OF CONSULTATION: 07/06/2016. REASON FOR CONSULTATION: Mental status change. HISTORY OF PRESENT ILLNESS: An 80-year-old woman who was seen by Dr. Doran in December of last year with a history of dementia, diabetes, hypertension, lumbar spine compression fracture. She had come in with generalized weakness and right leg DVT, was started on Eliquis, some bradycardia, atrial fibrillation, questionable aphasia and a little bit of a right nasolabial fold flattening. Nevertheless, she was found at home down yesterday with change in mental status. She was unresponsive at 07:30 this morning. 9--1 was called. She was intubated. CT showed a left basal ganglionic chronic change. ABG was normal post intubation. I am asked to see her for mental status change. PAST MEDICAL HISTORY: As above. Also: 1. Hypertension. 2. Hyperlipidemia. 3. Diabetes. 4. History of cataract surgeries. ALLERGIES: NO KNOWN DRUG ALLERGIES. SOCIAL HISTORY: Nonsmoker or a drinker. Evidently lives with her . MEDICATIONS AT HOME: 1. Insulin. 2. Hydralazine. 3. Lasix. 4. Cardizem. 5. Eliquis. 6. Losartan. 7. A statin. REVIEW OF SYSTEMS: Unable to perform. PHYSICAL EXAMINATION: VITAL SIGNS: Afebrile, 158/72, 16, 80. Initial blood pressure was 211/99 but then it came down quickly. NECK: There are no carotid bruits. HEART: Regular rhythm with a 1/6 systolic ejection murmur. NEUROLOGICAL EXAMINATION: Her pupils are equal. She can shake her head very slowly left to right and she says "no" to has she ever had a seizure. She can wiggle her fingers ever so slightly and her toes ever so slightly. She did stick out her tongue generally weak. Toes are downgoing bilaterally. LABS: CBC shows a white count of 18,000 otherwise normal. Sedimentation rate back in 2003 was normal. Rheumatoid factor has been negative. WILLI has been negative in the past remotely. Urinalysis on this admission positive nitrite, negative leukocyte esterase. Basic metabolic profile essentially unremarkable. Creatinine 1.67. BNP 390. Troponin negative. CPK negative. TSH normal. B12 was normal this past year. Acid pep has been negative last fall. Liver function tests are normal. IMAGING STUDIES: MRI of the brain I reviewed. There is a small old lacunar infarct, otherwise normal. MRI in December of last year: No acute infarct then. Carotid ultrasound at that time was negative. EEG December of last year showed some slowing. No seizure activity. IMPRESSION: She looks well neurologically. I think she should make a good recovery. There has been no stroke. Her neuro workup has been negative in the past. I am not sure why she was unresponsive. Will try to get more history from the when he comes in tomorrow. MD JOAN Banda/GILBERT /7:46 PM /7:58 PM
[2016-07-06] MEDS: SODIUM CHLORIDE 0.9% FLUSH 10 ML FLUSH IVF PRN (22:38)
[2016-07-07] VITALS (19 sets, daily range): BP systolic 143–168; BP diastolic 43–78; PULSE 80–104; RESP 11–15; TEMP 97.1–98.4; O2SAT 98–100
[2016-07-07] MEDS: PIPERACIL-TAZO 2.25 GM PREMIX 50 ML IV SCH ×3 (02:07→17:11)
[2016-07-07] MEDS: hydrALAZINE HCL 20 MG/ML VIAL IV PRN ×3 (02:07→23:04)
[2016-07-07] MEDS: INSULIN NovoLIN REGULAR SUPPLEMENTAL SCALE SQ SCH ×5 (02:14→22:51)
[2016-07-07] MEDS: RESP: ALBUTEROL 2.5 MG/IPRATROPIUM 0.5 MG NEB (SCH) INH ×4 (03:13→20:05)
[2016-07-07] MEDS: CHLORHEXIDINE GLUCONATE 2 % 1 PACK (2 CLOTHS) TOP SCH (04:00)
[2016-07-07] MEDS: SODIUM CHLOR 0.45% 1000 ML INJ 1,000 ML IV SCH ×2 (06:32→17:11)
--- NOTE | 2016-07-07 07:11 | HHI.CCPN ---
Subjective Remarks/Hospital Course The patient is an 80-year-old female with past medical history of dementia, hypertension, hyperlipidemia, TIA, diabetes mellitus and DVT of right lower extremity. She presented to the emergency department via ambulance with altered mental status. According to her she was unresponsive at 07:30 this morning and he called the and she was found to have Kathi Coma Scale score of 5, En route. The patient was intubated with etomidate, succinylcholine and placed on full mechanical ventilation for airway protection. A CT scan of the brain was obtained which showed a remote coronary infarct, left basal ganglia and chronic white matter ischemic changes. No acute findings identified. Her laboratory data showed leukocytosis with WBC of 14.2 and acute kidney injury with creatinine level of 1.88. Her lactic acid level measured at 1.3. ABG post intubation showed adenosine showed a pH of 7.42 , CO2 25, pAO2 282, bicarb 16, saturation 98% on assist control ventilation with a rate of 12, tidal volume 500, PEEP of five and FIO2 50%. Chest x-ray Post intubation showed ET tube above the ivonne, otherwise no acute cardiopulmonary abnormalities identified. She was given 2 liters of crystalloids in the ER along with Zosyn and Sodium bicarb. On arrival as she was hypertensive with a blood pressure of 211/99 and initially the patient was placed on Cardene drip. However it was turned off post extubation a poor however it was turned off pump post intubation. Her current blood pressure is 189/85 with a pulse of 83. 07/06 Patient is sedated with Diprivan and intubated. MRI and CT brain yesterday showed no acute intracranial abnormalities. For EEG today. Afebrile. 07/07 No events overnight. Off sedation. Patient is more awake and alert today. Objective Vital Signs Date Time Temp Pulse Resp B/P Pulse Ox O2 Delivery O2 Flow Rate FiO2 07/07/16 04:37 99 35 07/07/16 04:00 82 07/07/16 04:00 97.3 11 152/69 07/05/16 20:29 Ventilator 07/05/16 11:41 10 Intake and Output 07/06/16 07/06/16 07/07/16 08:00 16:00 00:00 Intake Total 113 ml 332 ml 313 ml Output Total 225 ml 260 ml 200 ml Balance -112 ml 72 ml 113 ml Result Diagram: 07/06/16 0303 07/06/16 1931 Other Results Laboratory Tests Test 07/06/16 19:31 Potassium Level 4.9 MEQ/L Imaging Last Impressions Lower Extremity Ultrasound 07/05/16 0000 Signed Impressions: Service Date/Time: June 12:08 - CONCLUSION: Normal examination. Issac Mead MD Head CT 07/05/16 0000 Signed Impressions: Service Date/Time: June 08:56 - CONCLUSION: 1. Remote lacunar infarct left basal ganglia. Chronic white matter ischemic changes. No acute finding compared with December 2015. Silvio Ochoa MD Chest X-Ray 07/05/16 0000 Signed Impressions: Service Date/Time: June 08:38 - CONCLUSION: Endotracheal tube in appropriate position with tip measuring 4 cm from the ivonne. Otherwise , no acute cardiopulmonary abnormality is identified. Issac Shipman MD Brain MRI 07/05/16 0000 Signed Impressions: Service Date/Time: June 15:14 - CONCLUSION: 1. No acute findings. Chronic white matter ischemic changes. No recent infarct. Basal ganglia calcifications. Silvio Ochoa MD Objective Remarks GENERAL: Patient is 80 yo intubated and sedated SKIN: Warm and dry. HEAD: Normocephalic. EYES: No scleral icterus. No injection or drainage. NECK: Supple, trachea midline. No JVD or lymphadenopathy. CARDIOVASCULAR: Regular rate and rhythm without murmurs, gallops, or rubs. RESPIRATORY: Breath sounds equal bilaterally. No accessory muscle use. GASTROINTESTINAL: Abdomen soft, non-tender, nondistended. MUSCULOSKELETAL: No cyanosis, or edema. Neuro: Sedated A/P Assessment and Plan 1. Vent dependent respiratory failure. 2. Encephalopathy. 3. Hypertension 4. Leukocytosis 5. Urinary tract infection. 6. Acute kidney injury...improving 7. Hyperglycemia with underlying history of diabetes mellitus. 8. Hyperlipidemia. 9. Dementia history. 10. Hx DVT RLE 12/2015 Plan Neuro: Off sedation. Monitor neuro status and avoid sedatives. Patient is more awake and alert this morning. CT brain/MRI brain: no acute intracranial abnormalities. Neuro - Dr. Taylor. Follow up on EEG results. Pulm: Continue with vent support and maintain sats above 92%. Bronchodilators, ICU vent bundle. SBT daily as nilda. CV: Monitor heart rate and blood pressure closely and maintain MAP >65mmHg On hydralazine 50 milligrams q. 8 hours. Echo from December 2015 showed EF of 65-70% with no regional wall motion abnormalities. : Monitor renal function Is and Os and avoid nephrotoxins. Electrolytes replacement per protocol. Renal function worse today with Cr: 2.06 from 1.67 Will give NS 250ml bolus for decrease UO, increase IVF1/2NS@100ml/hr, check renal US GI: on Protonix 40 mg IV daily for GI prophylaxis. Start tube feeds today if remains intubated. ID: Continue with abx (Zosyn) give Vanco 1gram x1 and monitor for signs of infections(fever and WBC). Follow up on blood and urine cultures- NGTD Endo: SSI medium scale with Accu-Chek q. 4 hr for glycemic control. TSH measured 1.85 GI prophylaxis with Protonix 40 mg daily and DVT prophylaxis with SCDs /Heparin SQ Doppler US LE negative for DVT Follow up on labs today Level 3 Jacinto Garcia MD July 07, 2016 07:11
[2016-07-07 08:06] LABS: AUTOMATED NEUTROPHIL # 19.1 TH/MM3 (1.8-7.7); BASOPHIL # 0.1 TH/MM3 (0-0.2); BASOPHIL % 0.4 % (0.0-2.0); EOSINOPHIL % 0.1 % (0.0-4.0); HEMATOCRIT 36.4 % (35.0-46.0); LYMPH % 4.4 % (9.0-44.0); LYMPHOCYTE # 0.9 TH/MM3 (1.0-4.8); MEAN CELL VOLUME 89.1 FL (80.0-100.0); MEAN CORPUSCULAR HEMOGLOBIN 29.3 PG (27.0-34.0); MEAN CORPUSCULAR HGB CONC 32.8 % (32.0-36.0); MONO % 7.6 % (0.0-8.0); NEUT % 87.5 % (16.0-70.0); PLATELET COUNT 217 TH/MM3 (150-450); RED BLOOD COUNT 4.08 MIL/MM3 (4.00-5.30); RED CELL DISTRIBUTION WIDTH 15.7 % (11.6-17.2); WHITE BLOOD COUNT 21.8 TH/MM3 (4.0-11.0)
[2016-07-07 08:08] LABS: HEMO FLAGS AUTO DIFF
[2016-07-07 08:13] LABS: BICARBONATE 19.8 MEQ/L (21.0-32.0); POTASSIUM 4.3 MEQ/L (3.5-5.1)
[2016-07-07 08:22] LABS: BANDS 7 % (0-6); NEUTROPHIL # MANUAL DIFF 18.7 TH/MM3 (1.8-7.7); PLATELET ESTIMATE SMEAR NORMAL (NORMAL); PLATELET MORPHOLOGY NORMAL (NORMAL); POLYS (SEG NEUTROPHILS) 79 % (16-70); SCAN/DIFF FINAL DIFF MANUAL; WBC DIFF SAMPLE 100
[2016-07-07 08:43] LABS: BLOOD GAS BASE EXCESS -5.8 mmol/L (-2-2); BLOOD GAS CARBOXYHEMOGLOBIN 1.1 % (0-4); BLOOD GAS HCO3 19 mmol/L (22-26); BLOOD GAS METHEMOGLOBIN 1.6 % (0-2); BLOOD GAS O2 HGB SATURATION 97 % (90-100); BLOOD GAS OXYGEN CONTENT 16.6 Vol % (12.0-20.0); BLOOD GAS PCO2 34 mmHg (38-42); BLOOD GAS PO2 211 mmHg (61-120); BLOOD GAS TOTAL HGB 11.8 G/DL (12.0-16.0); CRITICAL VALUE NO; DRAW SITE RT RADIAL; FIO2 35 %; NUMBER OF ARTERIAL PUNCTURES 1; OXYGEN DEVICE VENTILATOR; STAT NO; TEMP CORR TO 98.6; ULNAR PULSE PRESENT; VENT SETTINGS CPAP 5/10PS
[2016-07-07] MEDS: CHLORHEXIDINE 0.12% (ORAL KIT) 15 ML CUP MT SCH ×2 (09:13→23:03)
[2016-07-07] MEDS: PANTOPRAZOLE SODIUM 40 MG VIAL IV SCH (09:13)
[2016-07-07] MEDS: HEPARIN SODIUM - SQ 10,000 UNITS/ML VIAL SQ SCH ×2 (09:13→23:03)
[2016-07-07] MEDS: SODIUM CHLORIDE 0.9% FLUSH 10 ML FLUSH IVF PRN (09:14)
[2016-07-07] MEDS ORDERED: SODIUM CHLOR 0.9% 250 ML INJ 250 ML IV ONE ×2 (09:15→17:15)
[2016-07-07] MEDS ORDERED: SODIUM BICARBONATE 8.4% INJ 50 MEQ/50 ML SYR IV PUSH ONE (09:15)
[2016-07-07] MEDS ORDERED: VANCOMYCIN INJ 1,000 MG in SODIUM CHLOR 0.9% 250 ML INJ 250 ML IV ONE (09:15)
[2016-07-07] MEDS ORDERED: SODIUM BICARBONATE 8.4% INJ 50 ML ONE (09:50)
--- NOTE | 2016-07-07 12:01 | MG ---
cc: TIAGO ZHU Lab No: [id number] Date: Age: Sex: F Race: HISTORY: Change in mental status. Dementia. History of some left hemisphere slowing in the past. MEDICATIONS: Propofol. DESCRIPTION OF THE RECORDING: The recording shows some diffuse 5 Hz slowing and what appears to be probably some sleep rhythms are noted, sometimes down to 3 Hz. A vertex sharp wave is occasionally seen. The recording overall is synchronous and symmetric. Photic stimulation was performed without significant posterior driving. Hyperventilation was not performed. IMPRESSION: Probably mainly sleep rhythm here. Diffuse slowing is seen which could be consistent with a moderate diffuse encephalopathy but no focal abnormalities are noted. No seizure activity was seen. MD JONA Banda/GILBERT /11:41 AM 11:59 AM
--- NOTE | 2016-07-07 12:06 | HHI.PR ---
Objective Vital Signs Date Time Temp Pulse Resp B/P Pulse Ox O2 Delivery O2 Flow Rate FiO2 07/07/16 11:31 98 35 07/07/16 10:00 93 07/07/16 08:00 35 07/07/16 08:00 95 07/07/16 08:00 98.0 95 12 143/66 100 07/07/16 07:37 100 35 07/07/16 06:00 94 07/07/16 04:37 99 35 07/07/16 04:00 82 07/07/16 04:00 97.3 82 11 152/69 99 07/07/16 04:00 40 07/07/16 02:00 80 07/07/16 01:02 98 35 07/07/16 00:00 85 07/07/16 00:00 40 07/07/16 00:00 97.1 85 13 163/77 99 07/06/16 22:02 99 35 07/06/16 22:00 86 07/06/16 20:00 97.4 86 15 170/80 99 07/06/16 20:00 40 07/06/16 20:00 86 07/06/16 19:47 99 40 07/06/16 18:00 71 07/06/16 16:00 40 07/06/16 16:00 98.6 80 16 158/72 100 07/06/16 16:00 66 07/06/16 15:43 100 40 07/06/16 14:00 72 07/06/16 12:10 99 40 I/O 07/06/16 07/06/16 07/06/16 07/07/16 07/07/16 07/07/16 07:00 15:00 23:00 07:00 15:00 23:00 Intake Total 113 ml 332 ml 313 ml 212 ml Output Total 225 ml 260 ml 200 ml 100 ml Balance -112 ml 72 ml 113 ml 112 ml Intake Oral 0 ml IV Total 113 ml 332 ml 313 ml 212 ml Output Urine Total 175 ml 260 ml 200 ml 100 ml Gastric Drainage Total 50 ml # Bowel Movements 0 1 0 0 Result Diagram: 07/07/16 0559 07/07/16 0559 Objective Remarks awakens well can wiggle fingers a little bilat sticks out tongue for me Assessment and Plan Assessment and Plan imp i dw generally weak since last hosp visit then in bed in am eyes open not responding i think she should do well neurowise and should improve q day can follow commands now limit sedatives PT check mg labs eeg neg Les Taylor MD July 07, 2016 12:06
--- NOTE | 2016-07-07 13:11 | PD.CONS ---
[facility] Service Nephrology Consult Requested By Dr. Garcia Reason for Consult Acute renal failure Primary Care Physician Woody Becker M.D. History of Present Illness Patient is a 80-year-old female with history of diabetes, hypertension , she has underlying chronic dementia, she is found unresponsive by her and brought to the emergency and intubated patient has been treated with IV fluids her creatinine slowly rising at 2, patient is passing urine there is no other history available he has been placed on broad-spectrum antibiotics and the treated for possible sepsis, patient has been seen last year by the undersigned and ultrasound at that time showed no hydronephrosis. She has chronic kidney disease stage III. Past Family Social History Allergies: Coded Allergies: No Known Allergies (Unverified , 12/12/15) Past Medical History Diabetes Hypertension TIA Dementia Chronic Renal disease stage III Hyperlipidemia Osteoarthritis Past Surgical History Bilateral knee replacement Abdominal hysterectomy Bilateral cataract Reported Medications Reported Meds & Active Scripts Active Novolog Inj (Insulin Aspart) 100 Unit/Ml Inj 1 Units SQ ACHS SLIDING SCALE 30 Days Hydralazine (Hydralazine HCl) 50 Mg Tab 50 Mg PO Q6H 30 Days Furosemide 20 Mg Tab 20 Mg PO DAILY 30 Days Eliquis (Apixaban) 5 Mg Tab 10 Mg PO BID 30 Days Cardizem CD 24 HR (Diltiazem CD 24 HR) 240 Mg Caper 240 Mg PO DAILY 30 Days Reported D3 (Cholecalciferol) 1,000 Unit Cap Klor-Con 10 (Potassium Chloride) 10 Meq Tab 10 Meq PO DAILY Atorvastatin (Atorvastatin Calcium) 40 Mg Tab 40 Mg PO HS Losartan (Losartan Potassium) 100 Mg Tab 100 Mg PO DAILY Active Ordered Medications Current Medications Medications (Trade) Dose Ordered Sig/Espinoza Route Start Time Stop Time Status Last Admin (NS Flush) 2 ml UNSCH PRN IVF 07/05/16 08:45 07/07/16 09:14 (Protonix Inj) 40 mg DAILY IV 07/05/16 11:00 07/07/16 09:13 (Heparin Inj) 5,000 units Q12H SQ 07/05/16 11:00 07/07/16 09:13 Miscellaneous Information 1 Q361D XX 07/05/16 10:30 (Chlorhexidine 2% Cloth) 3 pack Taper DAILY@04 TOP 07/06/16 04:00 07/02/17 03:59 07/07/16 04:00 (Chlorhexidine 2% Cloth) 3 pack UNSCH PRN TOP 07/05/16 10:30 (D50w (Vial) Inj) 50 ml UNSCH PRN IV 07/05/16 10:30 (Glucagon Inj) 1 mg UNSCH PRN OTHER 07/05/16 10:30 Insulin Human Regular 1 1 Q4H SQ 07/05/16 11:00 07/07/16 02:14 (Zosyn 2.25 Gm Premix) 50 ml @ 100 mls/hr Q8H IV 07/05/16 18:00 07/07/16 09:14 Hydralazine HCl 10 mg 10 mg Q4H PRN IV 07/05/16 21:00 07/07/16 02:07 (1/2 NS 1000 ml Inj) 1,000 ml @ 100 mls/hr Q10H IV 07/06/16 18:00 07/07/16 06:32 (Peridex 0.12% Liq) 15 ml BID@08,20 MT 07/07/16 08:00 07/07/16 09:13 Family History Noncontributory Social History Nonsmoker Physical Exam Vital Signs Vital Signs Date Time Temp Pulse Resp B/P Pulse Ox O2 Delivery O2 Flow Rate FiO2 07/07/16 12:00 35 07/07/16 12:00 97 07/07/16 12:00 98.1 97 13 164/78 98 07/07/16 11:31 98 35 07/07/16 10:00 93 07/07/16 08:00 35 07/07/16 08:00 95 07/07/16 08:00 98.0 95 12 143/66 100 07/07/16 07:37 100 35 07/07/16 06:00 94 07/07/16 04:37 99 35 07/07/16 04:00 82 07/07/16 04:00 97.3 82 11 152/69 99 07/07/16 04:00 40 07/07/16 02:00 80 07/07/16 01:02 98 35 07/07/16 00:00 85 07/07/16 00:00 40 07/07/16 00:00 97.1 85 13 163/77 99 07/06/16 22:02 99 35 07/06/16 22:00 86 07/06/16 20:00 97.4 86 15 170/80 99 07/06/16 20:00 40 07/06/16 20:00 86 07/06/16 19:47 99 40 07/06/16 18:00 71 07/06/16 16:00 40 07/06/16 16:00 98.6 80 16 158/72 100 07/06/16 16:00 66 07/06/16 15:43 100 40 07/06/16 14:00 72 Physical Exam GENERAL: Well-nourished, well-developed intubated patient. SKIN: Warm and dry. HEAD: Normocephalic. EYES: No scleral icterus. No injection or drainage. NECK: Supple, intubated CARDIOVASCULAR: Regular rate and rhythm without murmurs, gallops, or rubs. RESPIRATORY: Breath sounds equal bilaterally. No accessory muscle use. GASTROINTESTINAL: Abdomen soft, non-tender, nondistended. EXTREMITIES: No cyanosis, or edema. NEUROLOGICAL: Under sedation Laboratory Laboratory Tests Test 07/06/16 07/07/16 07/07/16 19:31 05:59 08:35 Potassium Level 4.9 4.3 White Blood Count 21.8 Red Blood Count 4.08 Hemoglobin 12.0 Hematocrit 36.4 Mean Corpuscular Volume 89.1 Mean Corpuscular Hemoglobin 29.3 Mean Corpuscular Hemoglobin 32.8 Concent Red Cell Distribution Width 15.7 Platelet Count 217 Mean Platelet Volume 9.4 Neutrophils (%) (Auto) 87.5 Lymphocytes (%) (Auto) 4.4 Monocytes (%) (Auto) 7.6 Eosinophils (%) (Auto) 0.1 Basophils (%) (Auto) 0.4 Neutrophils # (Auto) 19.1 Lymphocytes # (Auto) 0.9 Monocytes # (Auto) 1.7 Eosinophils # (Auto) 0.0 Basophils # (Auto) 0.1 CBC Comment AUTO DIFF Differential Total Cells 100 Counted Neutrophils % (Manual) 79 Band Neutrophils % 7 Lymphocytes % 6 Monocytes % 8 Neutrophils # (Manual) 18.7 Differential Comment FINAL DIFF MANUAL Atypical Lymphocytes Platelet Estimate NORMAL Platelet Morphology Comment NORMAL Red Cell Morphology Comment NORMAL Hematology Comments Sodium Level 145 Chloride Level 114 Carbon Dioxide Level 19.8 Anion Gap 11 Blood Urea Nitrogen 33 Creatinine 2.06 Estimat Glomerular Filtration 23 Rate Random Glucose 141 Calcium Level 8.9 Blood Gas Puncture Site RT RADIAL Blood Gas Patient Temperature 98.6 Blood Gas HCO3 19 Blood Gas Base Excess -5.8 Blood Gas Oxygen Saturation 97 Arterial Blood pH 7.35 Arterial Blood Partial 34 Pressure CO2 Arterial Blood Partial 211 Pressure O2 Arterial Blood Oxygen Content 16.6 Arterial Blood 1.1 Carboxyhemoglobin Arterial Blood Methemoglobin 1.6 Blood Gas Hemoglobin 11.8 Oxygen Delivery Device VENTILATOR Blood Gas Ventilator Setting CPAP 5/10PS Blood Gas Inspired Oxygen 35 Date/Time Procedure Status Source Growth 07/05/16 08:55 Aerobic Blood Culture - Preliminary Resulted Blood Peripheral NO GROWTH IN 2 DAYS 07/05/16 08:55 Anaerobic Blood Culture - Preliminary Resulted Blood Peripheral NO GROWTH IN 2 DAYS 07/05/16 08:40 Urine Culture - Final Complete Urine Clean Catch NO GROWTH IN 48 HOURS. Result Diagram: 07/07/16 0559 07/07/16 0559 Imaging Last Impressions Lower Extremity Ultrasound 07/05/16 0000 Signed Impressions: Service Date/Time: June 12:08 - CONCLUSION: Normal examination. Issac Mead MD Head CT 07/05/16 0000 Signed Impressions: Service Date/Time: June 08:56 - CONCLUSION: 1. Remote lacunar infarct left basal ganglia. Chronic white matter ischemic changes. No acute finding compared with December 2015. Silvio Ochoa MD Chest X-Ray 07/05/16 0000 Signed Impressions: Service Date/Time: June 08:38 - CONCLUSION: Endotracheal tube in appropriate position with tip measuring 4 cm from the ivonne. Otherwise , no acute cardiopulmonary abnormality is identified. Issac Shipman MD Brain MRI 07/05/16 0000 Signed Impressions: Service Date/Time: June 15:14 - CONCLUSION: 1. No acute findings. Chronic white matter ischemic changes. No recent infarct. Basal ganglia calcifications. Silvio Ochoa MD Assessment and Plan Problem List: (1) Acute renal failure Plan: Patient is treated for underlying sepsis I agree with IV fluid and 100 cc an hour monitor urine output Avoid nephrotoxins Avoid dye studies (2) Type 2 diabetes mellitus Plan: Continue to monitor (3) Acute respiratory failure Plan: On Zosyn and was getting vancomycin which was discontinued (4) Dementia Plan: Old diagnoses Problem Qualifiers (1) Acute renal failure: Qualified Code: N17.9 - Acute renal failure, unspecified acute renal failure type (2) Acute respiratory failure: Qualified Code: J96.00 - Acute respiratory failure, unspecified whether with hypoxia or hypercapnia Armaan Thacker MD July 07, 2016 13:11
--- NOTE | 2016-07-07 15:45 | RADRPT ---
EXAM DATE/TIME: 07/07/2016 14:38 [facility] COMPARISON: US KIDNEY/RENAL/BLADDER, October 25, 2015, 10:59. INDICATIONS : Acute renal failure. MEDICAL HISTORY : Hypercholesterolemia. Hypertension. Osteoporosis. CVA. Renal disease. Diabetes. SURGICAL HISTORY : Hysterectomy. Bilateral cataract. Bilateral knee replacements. ENCOUNTER: Initial ACUITY: 1 day PAIN SCORE: Nonresponsive. LOCATION: Bilateral flank MEASUREMENTS: RIGHT KIDNEY: 9.9 x 5.1 x 4.1 cm LEFT KIDNEY: 10.0 x 4.0 x 4.0 cm FINDINGS: RIGHT KIDNEY: Small renal cyst measuring 2.7 cm without stone or hydronephrosis. LEFT KIDNEY: 1.7 cm renal cyst without stone or hydronephrosis. BLADDER: Decompressed by Grimm CONCLUSION: Small bilateral renal cysts without obstruction. Renal size is small but probably appropriate for an 80-year-old. Francisco Matute MD FACR on July 07, 2016 at 15:42 Board Certified Radiologist. This report was verified electronically.
[2016-07-08] VITALS (18 sets, daily range): BP systolic 130–167; BP diastolic 61–102; PULSE 75–106; RESP 12–14; TEMP 97.5–98.8; O2SAT 95–99
[2016-07-08] MEDS: hydrALAZINE HCL 20 MG/ML VIAL IV PRN ×2 (03:49→13:04)
[2016-07-08] MEDS: PIPERACIL-TAZO 2.25 GM PREMIX 50 ML IV SCH ×3 (03:49→18:06)
[2016-07-08] MEDS: CHLORHEXIDINE GLUCONATE 2 % 1 PACK (2 CLOTHS) TOP SCH (04:00)
[2016-07-08] MEDS: RESP: ALBUTEROL 2.5 MG/IPRATROPIUM 0.5 MG NEB (SCH) INH ×4 (04:05→20:29)
--- NOTE | 2016-07-08 07:37 | HHI.CCPN ---
Subjective Remarks/Hospital Course The patient is an 80-year-old female with past medical history of dementia, hypertension, hyperlipidemia, TIA, diabetes mellitus and DVT of right lower extremity. She presented to the emergency department via ambulance with altered mental status. According to her she was unresponsive at 07:30 this morning and he called the and she was found to have Kathi Coma Scale score of 5, En route. The patient was intubated with etomidate, succinylcholine and placed on full mechanical ventilation for airway protection. A CT scan of the brain was obtained which showed a remote coronary infarct, left basal ganglia and chronic white matter ischemic changes. No acute findings identified. Her laboratory data showed leukocytosis with WBC of 14.2 and acute kidney injury with creatinine level of 1.88. Her lactic acid level measured at 1.3. ABG post intubation showed adenosine showed a pH of 7.42 , CO2 25, pAO2 282, bicarb 16, saturation 98% on assist control ventilation with a rate of 12, tidal volume 500, PEEP of five and FIO2 50%. Chest x-ray Post intubation showed ET tube above the ivonne, otherwise no acute cardiopulmonary abnormalities identified. She was given 2 liters of crystalloids in the ER along with Zosyn and Sodium bicarb. On arrival as she was hypertensive with a blood pressure of 211/99 and initially the patient was placed on Cardene drip. However it was turned off post extubation a poor however it was turned off pump post intubation. Her current blood pressure is 189/85 with a pulse of 83. 07/06 Patient is sedated with Diprivan and intubated. MRI and CT brain yesterday showed no acute intracranial abnormalities. For EEG today. Afebrile. 07/07 No events overnight. Off sedation. Patient is more awake and alert today. 07/08 Patient was placed on CPAP at 4am. On PS 10, PEEP:5 and FIO2 35%. Afebrile. Objective Vital Signs Date Time Temp Pulse Resp B/P Pulse Ox O2 Delivery O2 Flow Rate FiO2 07/08/16 04:09 99 35 07/08/16 04:00 106 07/08/16 04:00 98.8 14 167/74 07/05/16 20:29 Ventilator 07/05/16 11:41 10 Intake and Output 07/07/16 07/07/16 07/08/16 08:00 16:00 00:00 Intake Total 212 ml 1707 ml 1201 ml Output Total 100 ml 200 ml 250 ml Balance 112 ml 1507 ml 951 ml Result Diagram: 07/07/16 0559 07/07/16 0559 Other Results Laboratory Tests Test 07/07/16 08:35 Blood Gas Puncture Site RT RADIAL Blood Gas Patient Temperature 98.6 Blood Gas HCO3 19 mmol/L Blood Gas Base Excess -5.8 mmol/L Blood Gas Oxygen Saturation 97 % Arterial Blood pH 7.35 Arterial Blood Partial 34 mmHg Pressure CO2 Arterial Blood Partial 211 mmHg Pressure O2 Arterial Blood Oxygen Content 16.6 Vol % Arterial Blood 1.1 % Carboxyhemoglobin Arterial Blood Methemoglobin 1.6 % Blood Gas Hemoglobin 11.8 G/DL Oxygen Delivery Device VENTILATOR Blood Gas Ventilator Setting CPAP 5/10PS Blood Gas Inspired Oxygen 35 % Imaging Last Impressions Renal Ultrasound 07/07/16 0000 Signed Impressions: Service Date/Time: Thursday, July 07, 2016 14:38 - CONCLUSION: Small bilateral renal cysts without obstruction. Renal size is small but probably appropriate for an 80-year-old. Francisco Matute MD FACR Lower Extremity Ultrasound 07/05/16 0000 Signed Impressions: Service Date/Time: June 12:08 - CONCLUSION: Normal examination. Issac Mead MD Head CT 07/05/16 0000 Signed Impressions: Service Date/Time: June 08:56 - CONCLUSION: 1. Remote lacunar infarct left basal ganglia. Chronic white matter ischemic changes. No acute finding compared with December 2015. Silvio Ochoa MD Chest X-Ray 07/05/16 0000 Signed Impressions: Service Date/Time: June 08:38 - CONCLUSION: Endotracheal tube in appropriate position with tip measuring 4 cm from the ivonne. Otherwise , no acute cardiopulmonary abnormality is identified. Issac Shipman MD Brain MRI 07/05/16 0000 Signed Impressions: Service Date/Time: June 15:14 - CONCLUSION: 1. No acute findings. Chronic white matter ischemic changes. No recent infarct. Basal ganglia calcifications. Silvio Ochoa MD Objective Remarks GENERAL: Patient is 80 yo intubated SKIN: Warm and dry. HEAD: Normocephalic. EYES: No scleral icterus. No injection or drainage. NECK: Supple, trachea midline. No JVD or lymphadenopathy. Orally intubated CARDIOVASCULAR: Regular rate and rhythm without murmurs, gallops, or rubs. RESPIRATORY: Breath sounds equal bilaterally. No accessory muscle use. GASTROINTESTINAL: Abdomen soft, non-tender, nondistended. MUSCULOSKELETAL: No cyanosis, or edema. Neuro: More awake, A/P Assessment and Plan 1. Vent dependent respiratory failure. 2. Encephalopathy. 3. Hypertension 4. Leukocytosis 5. Urinary tract infection. 6. Acute kidney injury. 7. Hyperglycemia with underlying history of diabetes mellitus. 8. Hyperlipidemia. 9. Dementia history. 10. Hx DVT RLE 12/2015 Plan Neuro: Off sedation. Monitor neuro status and avoid sedatives. Patient is more awake and alert this morning. CT brain/MRI brain: no acute intracranial abnormalities. Neuro - Dr. Taylor. Follow up on EEG results. EEG 07/07: Mode. diffuse encephalopathy Pulm: Continue with vent support and maintain sats above 92%. Bronchodilators, ICU vent bundle. SBT daily as nilda. CV: Monitor heart rate and blood pressure closely and maintain MAP >65mmHg On hydralazine 50 milligrams q. 8 hours. Echo from December 2015 showed EF of 65-70% with no regional wall motion abnormalities. : Monitor renal function Is and Os and avoid nephrotoxins. Electrolytes replacement as needed. Renal function worse today with Cr: 2.06 from 1.67 IVF1/2NS@100ml/hr, renal US 07/07: small b/l renal cysts without obstruction Renal is following-Dr. Thacker. Follow up on BMP GI: on Protonix 40 mg IV daily for GI prophylaxis. On tube feeds- Glucerna 1.5 currently @30ml/hr ID: Continue with abx (Zosyn)s/p Vanco 1gram x1 yesterday and monitor for signs of infections(fever and WBC). Follow up on blood and urine cultures- NGTD Endo: SSI medium scale with Accu-Chek q. 4 hr for glycemic control. TSH measured 1.85 GI prophylaxis with Protonix 40 mg daily and DVT prophylaxis with SCDs /Heparin SQ Doppler US LE negative for DVT Follow up on labs today Level 3 Jacinto Garcia MD July 08, 2016 07:37
[2016-07-08] MEDS: PANTOPRAZOLE SODIUM 40 MG VIAL IV SCH (09:26)
[2016-07-08] MEDS: CHLORHEXIDINE 0.12% (ORAL KIT) 15 ML CUP MT SCH (09:35)
[2016-07-08] MEDS: SODIUM CHLORIDE 0.9% FLUSH 10 ML FLUSH IVF PRN (09:35)
--- NOTE | 2016-07-08 10:14 | HHI.PR ---
Subjective Remarks alert Objective Vital Signs Date Time Temp Pulse Resp B/P Pulse Ox O2 Delivery O2 Flow Rate FiO2 07/08/16 08:01 99 35 07/08/16 08:00 35 07/08/16 08:00 75 07/08/16 08:00 98.3 75 12 144/67 99 07/08/16 06:00 106 07/08/16 04:09 99 35 07/08/16 04:00 106 07/08/16 04:00 35 07/08/16 04:00 98.8 94 14 167/74 97 07/08/16 02:00 98 07/08/16 00:00 98 07/08/16 00:00 97.8 100 14 130/61 96 07/07/16 23:28 99 35 07/07/16 22:00 104 07/07/16 20:04 100 35 07/07/16 20:00 82 07/07/16 20:00 35 07/07/16 20:00 98.4 88 14 168/43 98 07/07/16 18:00 89 07/07/16 16:00 35 07/07/16 16:00 100 07/07/16 16:00 98.0 100 15 157/72 99 07/07/16 15:13 99 35 07/07/16 14:00 104 07/07/16 12:00 35 07/07/16 12:00 97 07/07/16 12:00 98.1 97 13 164/78 98 07/07/16 11:31 98 35 I/O 07/07/16 07/07/16 07/07/16 07/08/16 07/08/16 07/08/16 07:00 15:00 23:00 07:00 15:00 23:00 Intake Total 212 ml 1707 ml 1201 ml 835 ml Output Total 100 ml 200 ml 250 ml 200 ml Balance 112 ml 1507 ml 951 ml 635 ml Intake Oral 0 ml IV Total 212 ml 1479 ml 964 ml 646 ml Tube Feeding 228 ml 237 ml 189 ml Output Urine Total 100 ml 200 ml 250 ml 200 ml # Bowel Movements 0 Result Diagram: 07/07/16 0559 07/07/16 0559 Objective Remarks awakens well can wiggle fingers a little bilat better and moves arms a little Assessment and Plan Assessment and Plan imp i dw generally weak since last hosp visit then in bed in am eyes open not responding i think she should do well neurowise and should improve q day can follow commands now limit sedatives PT check mg labs eeg neg try sinemet a little better q day Les Taylor MD July 08, 2016 10:14
[2016-07-08] MEDS: INSULIN NovoLIN REGULAR SUPPLEMENTAL SCALE SQ SCH ×3 (11:00→23:00)
[2016-07-08 11:12] LABS: BLOOD GAS BASE EXCESS -5.1 mmol/L (-2-2); BLOOD GAS CARBOXYHEMOGLOBIN 1.1 % (0-4); BLOOD GAS HCO3 20 mmol/L (22-26); BLOOD GAS METHEMOGLOBIN 2.1 % (0-2); BLOOD GAS O2 HGB SATURATION 96 % (90-100); BLOOD GAS OXYGEN CONTENT 15.5 Vol % (12.0-20.0); BLOOD GAS PCO2 38 mmHg (38-42); BLOOD GAS PO2 196 mmHg (61-120); BLOOD GAS TOTAL HGB 11.2 G/DL (12.0-16.0); CRITICAL VALUE NO; DRAW SITE RT RADIAL; FIO2 35 %; NUMBER OF ARTERIAL PUNCTURES 1; OXYGEN DEVICE VENTILATOR; STAT NO; TEMP CORR TO 98.6; ULNAR PULSE PRESENT; VENT SETTINGS CPAP 5/10PS
[2016-07-08] MEDS: CARBIDOPA/LEVODOPA 25 MG/100 MG TAB PO SCH ×2 (11:12→16:00)
[2016-07-08] MEDS: HEPARIN SODIUM - SQ 10,000 UNITS/ML VIAL SQ SCH ×2 (11:12→23:00)
[2016-07-08 11:58] LABS: BASOPHIL # 0.1 TH/MM3 (0-0.2); BASOPHIL % 0.4 % (0.0-2.0); EOSINOPHIL % 0.1 % (0.0-4.0); HEMATOCRIT 33.8 % (35.0-46.0); LYMPH % 5.5 % (9.0-44.0); MEAN CELL VOLUME 89.8 FL (80.0-100.0); MEAN CORPUSCULAR HEMOGLOBIN 29.6 PG (27.0-34.0); MEAN CORPUSCULAR HGB CONC 32.9 % (32.0-36.0); MONO % 5.8 % (0.0-8.0); NEUT % 88.2 % (16.0-70.0); PLATELET COUNT 225 TH/MM3 (150-450); RED BLOOD COUNT 3.76 MIL/MM3 (4.00-5.30); RED CELL DISTRIBUTION WIDTH 15.4 % (11.6-17.2); WHITE BLOOD COUNT 18.2 TH/MM3 (4.0-11.0)
[2016-07-08 12:01] LABS: HEMO FLAGS AUTO DIFF
--- NOTE | 2016-07-08 12:04 | HHI.NPPN ---
Subjective Additional Remarks remains intubated Objective Data Data 07/07/16 07/08/16 19:00 07:00 Intake Total 1707 ml 2036 ml Output Total 200 ml 450 ml Balance 1507 ml 1586 ml IV Total 1479 ml 1610 ml Tube Feeding 228 ml 426 ml Output Urine Total 200 ml 450 ml Vital Signs Date Time Temp Pulse Resp B/P Pulse Ox O2 Delivery O2 Flow Rate FiO2 07/08/16 10:00 88 07/08/16 08:01 99 35 07/08/16 08:00 35 07/08/16 08:00 75 07/08/16 08:00 98.3 75 12 144/67 99 07/08/16 06:00 106 07/08/16 04:09 99 35 07/08/16 04:00 106 07/08/16 04:00 35 07/08/16 04:00 98.8 94 14 167/74 97 07/08/16 02:00 98 07/08/16 00:00 98 07/08/16 00:00 97.8 100 14 130/61 96 07/07/16 23:28 99 35 07/07/16 22:00 104 07/07/16 20:04 100 35 07/07/16 20:00 82 07/07/16 20:00 35 07/07/16 20:00 98.4 88 14 168/43 98 07/07/16 18:00 89 07/07/16 16:00 35 07/07/16 16:00 100 07/07/16 16:00 98.0 100 15 157/72 99 07/07/16 15:13 99 35 07/07/16 14:00 104 -: 07/07/16 0559 07/07/16 0559 Physical Exam General Appearance: Well Developed Neck Neck Exam: Neck Supple Pulmonary Resp Exam: Decreased Bases Cardiology CV Exam: Tachycardia Gastrointestinal/Abdomen GI Exam: Soft, Non-Tender Extremeties Extremities Exam: Trace Edema Assessment/Plan Problem List: (1) Acute renal failure Plan: Patient is treated for underlying sepsis follow labs UOP low continue with IVF (2) Type 2 diabetes mellitus Plan: Continue to monitor (3) Acute respiratory failure Plan: On Zosyn and was getting vancomycin which was discontinued (4) Dementia Plan: Old diagnoses Problem Qualifiers (1) Acute renal failure: Qualified Code: N17.9 - Acute renal failure, unspecified acute renal failure type (2) Acute respiratory failure: Qualified Code: J96.00 - Acute respiratory failure, unspecified whether with hypoxia or hypercapnia Armaan Thacker MD July 08, 2016 12:04
[2016-07-08 12:31] LABS: BICARBONATE 23.2 MEQ/L (21.0-32.0); POTASSIUM 3.1 MEQ/L (3.5-5.1)
[2016-07-08] MEDS: POTASSIUM CHLOR 20 MEQ PREMIX 100 ML IV SCH ×2 (12:48→14:47)
[2016-07-08 12:49] LABS: OVALOCYTES 1+ (NORMAL); SCAN/DIFF AUTO DIFF CONFIRMED
[2016-07-08] MEDS: SODIUM CHLOR 0.45% 1000 ML INJ 1,000 ML IV SCH ×2 (13:50→15:01)
[2016-07-09] VITALS (14 sets, daily range): BP systolic 106–157; BP diastolic 53–74; PULSE 85–102; RESP 12–20; TEMP 97.4–98.8; O2SAT 96–99
[2016-07-09] MEDS: SODIUM CHLOR 0.45% 1000 ML INJ 1,000 ML IV SCH ×2 (02:31→10:18)
[2016-07-09] MEDS: PIPERACIL-TAZO 2.25 GM PREMIX 50 ML IV SCH ×3 (02:31→18:23)
[2016-07-09] MEDS: RESP: ALBUTEROL 2.5 MG/IPRATROPIUM 0.5 MG NEB (SCH) INH ×2 (03:19→10:57)
[2016-07-09] MEDS: INSULIN NovoLIN REGULAR SUPPLEMENTAL SCALE SQ SCH ×4 (05:00→23:00)
[2016-07-09] MEDS: CARBIDOPA/LEVODOPA 25 MG/100 MG TAB PO SCH ×3 (06:00→18:23)
[2016-07-09 06:11] LABS: AUTOMATED NEUTROPHIL # 11.7 TH/MM3 (1.8-7.7); BASOPHIL # 0.1 TH/MM3 (0-0.2); BASOPHIL % 0.4 % (0.0-2.0); EOSINOPHIL % 0.3 % (0.0-4.0); HEMATOCRIT 31.3 % (35.0-46.0); LYMPH % 7.9 % (9.0-44.0); LYMPHOCYTE # 1.1 TH/MM3 (1.0-4.8); MEAN CELL VOLUME 91.4 FL (80.0-100.0); MEAN CORPUSCULAR HEMOGLOBIN 29.5 PG (27.0-34.0); MEAN CORPUSCULAR HGB CONC 32.3 % (32.0-36.0); MONO % 6.8 % (0.0-8.0); NEUT % 84.6 % (16.0-70.0); PLATELET COUNT 192 TH/MM3 (150-450); RED BLOOD COUNT 3.42 MIL/MM3 (4.00-5.30); RED CELL DISTRIBUTION WIDTH 15.8 % (11.6-17.2); WHITE BLOOD COUNT 13.9 TH/MM3 (4.0-11.0)
[2016-07-09 06:17] LABS: HEMO FLAGS AUTO DIFF
[2016-07-09 06:40] LABS: POTASSIUM 3.6 MEQ/L (3.5-5.1)
--- NOTE | 2016-07-09 07:05 | HHI.CCPN ---
Subjective Remarks/Hospital Course The patient is an 80-year-old female with past medical history of dementia, hypertension, hyperlipidemia, TIA, diabetes mellitus and DVT of right lower extremity. She presented to the emergency department via ambulance with altered mental status. According to her she was unresponsive at 07:30 this morning and he called the and she was found to have Kathi Coma Scale score of 5, En route. The patient was intubated with etomidate, succinylcholine and placed on full mechanical ventilation for airway protection. A CT scan of the brain was obtained which showed a remote coronary infarct, left basal ganglia and chronic white matter ischemic changes. No acute findings identified. Her laboratory data showed leukocytosis with WBC of 14.2 and acute kidney injury with creatinine level of 1.88. Her lactic acid level measured at 1.3. ABG post intubation showed adenosine showed a pH of 7.42 , CO2 25, pAO2 282, bicarb 16, saturation 98% on assist control ventilation with a rate of 12, tidal volume 500, PEEP of five and FIO2 50%. Chest x-ray Post intubation showed ET tube above the ivonne, otherwise no acute cardiopulmonary abnormalities identified. She was given 2 liters of crystalloids in the ER along with Zosyn and Sodium bicarb. On arrival as she was hypertensive with a blood pressure of 211/99 and initially the patient was placed on Cardene drip. However it was turned off post extubation a poor however it was turned off pump post intubation. Her current blood pressure is 189/85 with a pulse of 83. 07/06 Patient is sedated with Diprivan and intubated. MRI and CT brain yesterday showed no acute intracranial abnormalities. For EEG today. Afebrile. 07/07 No events overnight. Off sedation. Patient is more awake and alert today. 07/08 Patient was placed on CPAP at 4am. On PS 10, PEEP:5 and FIO2 35%. Afebrile. 07/09 Patient s/p extubation yesterday on 2L oxygen . Afebrile. Objective Vital Signs Date Time Temp Pulse Resp B/P Pulse Ox O2 Delivery O2 Flow Rate FiO2 07/08/16 22:00 99 07/08/16 20:27 99 Nasal Cannula 2.00 07/08/16 20:00 97.5 12 139/61 07/08/16 12:00 35 Intake and Output 07/08/16 07/08/16 07/09/16 08:00 16:00 00:00 Intake Total 835 ml 895 ml Output Total 200 ml 230 ml Balance 635 ml 665 ml Result Diagram: 07/09/16 0520 07/09/16 0520 Other Results Laboratory Tests Test 07/08/16 07/08/16 07/09/16 11:05 20:51 05:20 White Blood Count 18.2 TH/MM3 13.9 TH/MM3 Red Blood Count 3.76 MIL/MM3 3.42 MIL/MM3 Hemoglobin 11.1 GM/DL 10.1 GM/DL Hematocrit 33.8 % 31.3 % Mean Corpuscular Volume 89.8 FL 91.4 FL Mean Corpuscular Hemoglobin 29.6 PG 29.5 PG Mean Corpuscular Hemoglobin 32.9 % 32.3 % Concent Red Cell Distribution Width 15.4 % 15.8 % Platelet Count 225 TH/MM3 192 TH/MM3 Mean Platelet Volume 9.0 FL 8.8 FL Neutrophils (%) (Auto) 88.2 % 84.6 % Lymphocytes (%) (Auto) 5.5 % 7.9 % Monocytes (%) (Auto) 5.8 % 6.8 % Eosinophils (%) (Auto) 0.1 % 0.3 % Basophils (%) (Auto) 0.4 % 0.4 % Neutrophils # (Auto) 16.0 TH/MM3 11.7 TH/MM3 Lymphocytes # (Auto) 1.0 TH/MM3 1.1 TH/MM3 Monocytes # (Auto) 1.1 TH/MM3 0.9 TH/MM3 Eosinophils # (Auto) 0.0 TH/MM3 0.0 TH/MM3 Basophils # (Auto) 0.1 TH/MM3 0.1 TH/MM3 CBC Comment AUTO DIFF AUTO DIFF Differential Comment AUTO DIFF CONFIRMED Ovalocytes 1+ Blood Gas Puncture Site RT RADIAL Blood Gas Patient Temperature 98.6 Blood Gas HCO3 20 mmol/L Blood Gas Base Excess -5.1 mmol/L Blood Gas Oxygen Saturation 96 % Arterial Blood pH 7.34 Arterial Blood Partial 38 mmHg Pressure CO2 Arterial Blood Partial 196 mmHg Pressure O2 Arterial Blood Oxygen Content 15.5 Vol % Arterial Blood 1.1 % Carboxyhemoglobin Arterial Blood Methemoglobin 2.1 % Blood Gas Hemoglobin 11.2 G/DL Oxygen Delivery Device VENTILATOR Blood Gas Ventilator Setting CPAP 5/10PS Blood Gas Inspired Oxygen 35 % Sodium Level 143 MEQ/L 145 MEQ/L Potassium Level 3.1 MEQ/L 4.2 MEQ/L 3.6 MEQ/L Chloride Level 112 MEQ/L 112 MEQ/L Carbon Dioxide Level 23.2 MEQ/L 21.0 MEQ/L Anion Gap 8 MEQ/L 12 MEQ/L Blood Urea Nitrogen 35 MG/DL 30 MG/DL Creatinine 1.81 MG/DL 1.56 MG/DL Estimat Glomerular Filtration 27 ML/MIN 32 ML/MIN Rate Random Glucose 167 MG/DL 116 MG/DL Calcium Level 8.4 MG/DL 8.3 MG/DL Imaging Last Impressions Renal Ultrasound 07/07/16 0000 Signed Impressions: Service Date/Time: Thursday, July 07, 2016 14:38 - CONCLUSION: Small bilateral renal cysts without obstruction. Renal size is small but probably appropriate for an 80-year-old. Francisco Matute MD FACR Lower Extremity Ultrasound 07/05/16 0000 Signed Impressions: Service Date/Time: June 12:08 - CONCLUSION: Normal examination. Issac Mead MD Head CT 07/05/16 0000 Signed Impressions: Service Date/Time: June 08:56 - CONCLUSION: 1. Remote lacunar infarct left basal ganglia. Chronic white matter ischemic changes. No acute finding compared with December 2015. Silvio Ochoa MD Chest X-Ray 07/05/16 0000 Signed Impressions: Service Date/Time: June 08:38 - CONCLUSION: Endotracheal tube in appropriate position with tip measuring 4 cm from the ivonne. Otherwise , no acute cardiopulmonary abnormality is identified. Issac Shipman MD Brain MRI 07/05/16 0000 Signed Impressions: Service Date/Time: June 15:14 - CONCLUSION: 1. No acute findings. Chronic white matter ischemic changes. No recent infarct. Basal ganglia calcifications. Silvio Ochoa MD Objective Remarks GENERAL: Patient is 80 yo lying in bed in NAD SKIN: Warm and dry. HEAD: Normocephalic. EYES: No scleral icterus. No injection or drainage. NECK: Supple, trachea midline. No JVD or lymphadenopathy. CARDIOVASCULAR: Regular rate and rhythm without murmurs, gallops, or rubs. RESPIRATORY: Breath sounds equal bilaterally. No accessory muscle use. GASTROINTESTINAL: Abdomen soft, non-tender, nondistended. MUSCULOSKELETAL: No cyanosis, or edema. Neuro: Awake, A/P Assessment and Plan 1. Resp Insuff s/p extubation 07/08 2. Encephalopathy. 3. Hypertension 4. Leukocytosis 5. Urinary tract infection. 6. Acute kidney injury. 7. Hyperglycemia with underlying history of diabetes mellitus. 8. Hyperlipidemia. 9. Dementia history. 10. Hx DVT RLE 12/2015 Plan Neuro: Monitor neuro status and avoid sedatives. CT brain/MRI brain: no acute intracranial abnormalities. Neuro - Dr. Taylor. EEG 07/07: Mode. diffuse encephalopathy Pulm: Continue with oxygen and maintain sats above 92%. Bronchodilators, aspiration precautions CV: Monitor heart rate and blood pressure closely and maintain MAP >65mmHg On hydralazine 50 milligrams q. 8 hours. Echo from December 2015 showed EF of 65-70% with no regional wall motion abnormalities. : Monitor renal function Is and Os and avoid nephrotoxins. Electrolytes replacement as needed. Renal function is improving with Cr: 1.56 today 1.81 IVF1/2NS@75ml/hr, renal US 07/07: small b/l renal cysts without obstruction Renal is following-Dr. Thacker. GI: on Protonix 40 mg IV daily for GI prophylaxis. OSpeech eval diet per speech ID: Continue with abx (Zosyn) monitor for signs of infections(fever and WBC). WBC trending down Follow up on blood and urine cultures- NGTD Endo: SSI medium scale with Accu-Chek q. 4 hr for glycemic control. TSH measured 1.85 GI prophylaxis with Protonix 40 mg daily and DVT prophylaxis with SCDs /Heparin SQ Doppler US LE negative for DVT Will sign off and transfer care to [facility] Level 3 Jacinto Garcia MD July 09, 2016 07:05
[2016-07-09] MEDS: CHLORHEXIDINE 0.12% (ORAL KIT) 15 ML CUP MT SCH ×2 (08:00→20:00)
[2016-07-09 08:54] LABS: BANDS 4 % (0-6); EOSINOPHILS 1 % (0-4); METAMYELOCYTES 2 % (0-1); NEUTROPHIL # MANUAL DIFF 11.3 TH/MM3 (1.8-7.7); OVALOCYTES 1+ (NORMAL); PLATELET ESTIMATE SMEAR NORMAL (NORMAL); PLATELET MORPHOLOGY NORMAL (NORMAL); POLYS (SEG NEUTROPHILS) 75 % (16-70); SCAN/DIFF FINAL DIFF MANUAL; WBC DIFF SAMPLE 100
[2016-07-09 08:55] LABS: ACANTHOCYTES OCC (NORMAL); BURR CELLS 1+ (NORMAL)
[2016-07-09] MEDS: PANTOPRAZOLE SODIUM 40 MG VIAL IV SCH (10:18)
--- NOTE | 2016-07-09 10:37 | HHI.PR ---
Subjective Remarks alert off vent Objective Vital Signs Date Time Temp Pulse Resp B/P Pulse Ox O2 Delivery O2 Flow Rate FiO2 07/09/16 06:00 98 07/09/16 04:00 97.9 89 18 106/53 96 07/09/16 04:00 98 07/09/16 02:00 98 07/09/16 00:00 97.4 98 20 145/70 96 07/09/16 00:00 98 07/08/16 22:00 99 07/08/16 20:27 99 Nasal Cannula 2.00 07/08/16 20:00 97.5 106 12 139/61 95 07/08/16 20:00 96 Nasal Cannula 4.00 07/08/16 20:00 106 07/08/16 18:00 100 07/08/16 16:00 98.8 90 14 152/70 99 07/08/16 16:00 87 07/08/16 14:00 86 07/08/16 13:15 155/71 07/08/16 13:00 Nasal Cannula 2.00 07/08/16 13:00 163/102 07/08/16 12:50 98 Nasal Cannula 2.00 07/08/16 12:50 98 Nasal Cannula 2 07/08/16 12:00 86 07/08/16 12:00 98.4 87 12 163/74 99 07/08/16 12:00 35 I/O 07/08/16 07/08/16 07/08/16 07/09/16 07/09/16 07/09/16 07:00 15:00 23:00 07:00 15:00 23:00 Intake Total 835 ml 895 ml 570 ml 832 ml Output Total 200 ml 230 ml 200 ml 200 ml Balance 635 ml 665 ml 370 ml 632 ml IV Total 646 ml 800 ml 570 ml 832 ml Tube Feeding 189 ml 95 ml Output Urine Total 200 ml 230 ml 200 ml 200 ml # Bowel Movements 2 2 Result Diagram: 07/09/1651907/09/16519 Objective Remarks awakens well can wiggle fingers a little bilat better and moves arms a little better picks up 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
[2016-07-09] MEDS: HEPARIN SODIUM - SQ 10,000 UNITS/ML VIAL SQ SCH ×2 (11:00→23:58)
--- NOTE | 2016-07-09 12:33 | HHI.NPPN ---
Subjective Additional Remarks extubated Objective Data Data 07/08/16 07/09/16 19:00 07:00 Intake Total 895 ml 1402 ml Output Total 230 ml 400 ml Balance 665 ml 1002 ml IV Total 800 ml 1402 ml Tube Feeding 95 ml Output Urine Total 230 ml 400 ml # Bowel Movements 3 1 Vital Signs Date Time Temp Pulse Resp B/P Pulse Ox O2 Delivery O2 Flow Rate FiO2 07/09/16 06:00 98 07/09/16 04:00 97.9 89 18 106/53 96 07/09/16 04:00 98 07/09/16 02:00 98 07/09/16 00:00 97.4 98 20 145/70 96 07/09/16 00:00 98 07/08/16 22:00 99 07/08/16 20:27 99 Nasal Cannula 2.00 07/08/16 20:00 97.5 106 12 139/61 95 07/08/16 20:00 96 Nasal Cannula 4.00 07/08/16 20:00 106 07/08/16 18:00 100 07/08/16 16:00 98.8 90 14 152/70 99 07/08/16 16:00 87 07/08/16 14:00 86 07/08/16 13:15 155/71 07/08/16 13:00 Nasal Cannula 2.00 07/08/16 13:00 163/102 07/08/16 12:50 98 Nasal Cannula 2.00 07/08/16 12:50 98 Nasal Cannula 2 -: 07/09/16 0520 07/09/16 0520 Physical Exam General Appearance: Well Developed Neck Neck Exam: Neck Supple Pulmonary Resp Exam: Decreased Bases Cardiology CV Exam: Tachycardia Gastrointestinal/Abdomen GI Exam: Soft, Non-Tender Extremeties Extremities Exam: Trace Edema Assessment/Plan Problem List: (1) Acute renal failure Plan: Patient is treated for underlying sepsis follow labs UOP improved Cr 1.5 declined off ventilator continue with IVF US Kidney small cyst , kidney size small will follow as needed (2) Type 2 diabetes mellitus Plan: Continue to monitor (3) Acute respiratory failure Plan: On Zosyn and was getting vancomycin which was discontinued (4) Dementia Plan: Old diagnoses Problem Qualifiers (1) Acute renal failure: Qualified Code: N17.9 - Acute renal failure, unspecified acute renal failure type (2) Acute respiratory failure: Qualified Code: J96.00 - Acute respiratory failure, unspecified whether with hypoxia or hypercapnia Armaan Thacker MD July 09, 2016 12:33
--- NOTE | 2016-07-09 17:42 | PD.CONS ---
HPI Service [facility] Hospitalists Consult Requested By Dr. Garcia Reason for Consult Assume medical management, transfer from [facility] Primary Care Physician Woody Becker M.D. Diagnoses: History of Present Illness This is an 80-year-old elderly white female with past medical history of TIA, hypertension, hyperlipidemia, dementia, DVT of right lower extremity diagnosed in December 2015. Patient brought into the emergency room on 07/05/2016 for altered mental status. Apparently patient was found unresponsive around 7:30 in the morning and 911 was called. Patient was found with a Kathi coma scale score 05. On route, the patient was intubated and put on mechanical ventilation. A CT of the brain was obtained which showed a remote infarct left basal ganglia and chronic white matter ischemic changes. There were no acute findings noted. Laboratory workup showed leukocytosis with WBC of 14.2 with acute kidney injury with creatinine level of 1.88. Lactic acid was 1.3. Chest x-ray postintubation showed no acute card of pulmonary abnormalities and appropriate placement of ET tube. She was given fluid resuscitation and started on empiric antibiotics. She was put on sodium bicarbonate. She was noted hypertensive with blood pressure of 211/99 and require Cardene drip. Patient was admitted to intensive the services. Neurology and nephrology were consulted. MRI of the brain was completed which did not show any acute findings. EEG was done that showed encephalopathy. Renal function has started to improve and she is currently on IV fluids. She was extubated on 07/09/2016 and is currently on oxygen at 2 L and tolerating well. Leukocytosis is improving, most recent WBC 13.9. Cultures are negative. Patient is still encephalopathic, she's awake and is following simple commands. She is oriented to self and . Has since at bedside and indicates that since December patient has been declining and is mostly on a wheelchair and requires assistance with ADLs. Prior to this admission he had already been talking to nursing homes for long-term care. At this time he is requesting that patient remain a full code with aggressive care and would like the patient to go to a residential when discharged. Indicates that he can no longer handle her care at home as she requires 24-hour care. Hospitalist services are requested for medical management. Review of Systems ROS Limitations: Poor Historian Past Family Social History Past Medical History 1. Dementia. 2. Hypertension. 3. Hyperlipidemia. 4. Diabetes mellitus. 5. History of deep venous thrombosis Right lower extremity., dx December 2015. 6. Afib 7. Recent L2 compression fracture, 8. Bradycardia Past Surgical History 1. Previous cataract surgery. 2. Previous a total abdominal hysterectomy. 3. Previous bilateral knee replacement. Reported Medications Reported Meds & Active Scripts Active Novolog Inj (Insulin Aspart) 100 Unit/Ml Inj 1 Units SQ ACHS SLIDING SCALE 30 Days Hydralazine (Hydralazine HCl) 50 Mg Tab 50 Mg PO Q6H 30 Days Furosemide 20 Mg Tab 20 Mg PO DAILY 30 Days Eliquis (Apixaban) 5 Mg Tab 10 Mg PO BID 30 Days Cardizem CD 24 HR (Diltiazem CD 24 HR) 240 Mg Caper 240 Mg PO DAILY 30 Days Reported D3 (Cholecalciferol) 1,000 Unit Cap Klor-Con 10 (Potassium Chloride) 10 Meq Tab 10 Meq PO DAILY Atorvastatin (Atorvastatin Calcium) 40 Mg Tab 40 Mg PO HS Losartan (Losartan Potassium) 100 Mg Tab 100 Mg PO DAILY Allergies: Coded Allergies: No Known Allergies (Unverified , 12/12/15) Active Ordered Medications Inpatient Medications Albuterol/ Ipratropium (Duoneb Neb) 1 ampule Q6HR NEB INH Last administered on 07/09/16 10:57; Start 07/05/16 at 11:00; Stop 07/09/16 at 11:00; Status DC Carbidopa/ Levodopa 1 tab 1 tab DAILY@06,12,16 PO Last administered on 12:00; Start 07/08/16 at 12:00 Chlorhexidine Gluconate (Chlorhexidine 2% Cloth) 3 pack UNSCH PRN TOP HYGIENIC CARE; Start 07/05/16 at 10:30 Chlorhexidine Gluconate (Peridex 0.12% Liq) 15 ml BID@08,20 MT Last administered on 07/08/16 09:35; Start 07/07/16 at 08:00 Dextrose (D50w (Vial) Inj) 50 ml UNSCH PRN IV HYPOGLYCEMIA-SEE COMMENTS; Start 07/05/16 at 10:30 Etomidate (Amidate Inj) 20 mg ONCE ONCE IVP ; Start 07/05/16 at 08:45; Stop at 08:46; Status DC Glucagon (Glucagon Inj) 1 mg UNSCH PRN OTHER HYPOGLYCEMIA-SEE COMMENTS; Start 07/05/16 at 10:30 Heparin Sodium (Porcine) (Heparin Inj) 5,000 units Q12H SQ Last administered on 07/09/16 11:00; Start 07/05/16 at 11:00 Hydralazine HCl 10 mg 10 mg Q4H PRN IV SYSTOLIC BP GREATER THAN 160 Last administered on 07/08/16 13:04; Start 07/05/16 at 21:00 Insulin Human Regular (NovoLIN R SUPPLEMENTAL SCALE) 1 Q6H SQ Last administered on 07/08/16 11:00; Start 07/07/16 at 23:00 Insulin Human Regular 1 1 Q4H SQ Last administered on 07/07/16 15:22; Start at 11:00; Stop 07/07/16 at 17:16; Status DC Magnesium Oxide 800 mg 800 mg UNSCH PRN PO For Magnesium 1.2 - 1.6 mg/dL; Start 07/06/16 at 07:45; Stop 07/07/16 at 09:21; Status DC Magnesium Sulfate 2 gm/Sodium Chloride 100 ml @ 50 mls/hr UNSCH PRN IV For Magnesium 1.2 - 1.6 mg/dL; Start 07/06/16 at 07:45; Stop 07/07/16 at 09:21; Status DC Magnesium Sulfate/ Sodium Chloride (Magnesium Sulfate Inj/NS Inj) 100 ml @ 50 mls/hr UNSCH PRN IV For Magnesium 0.9 - 1.1 mg/dL; Start 07/06/16 at 07:45; Stop 07/07/16 at 09:21; Status DC Miscellaneous Information 1 [id number] XX ; Start 07/05/16 at 10:30 Nicardipine HCl 25 mg/Sodium Chloride 260 ml @ 0 mls/hr TITRATE IV Last administered on 07/05/16 08:56; Start 07/05/16 at 08:45; Stop 07/05/16 at 09:45 ; Status DC Pantoprazole Sodium (Protonix Inj) 40 mg DAILY IV Last administered on 10:18; Start 07/05/16 at 11:00 Piperacillin Sod/ Tazobactam Sod (Zosyn 2.25 Gm Premix) 50 ml @ 100 mls/hr Q8H IV Last administered on 07/09/16 10:18; Start 07/05/16 at 18:00 Potassium Phosphate 2000 mg 2,000 mg UNSCH PRN PO/TUBE SEE LABEL COMMENTS; Start 07/06/16 at 07:45; Stop 07/07/16 at 09:22; Status DC Potassium Bicarb/ Potassium Chloride 50 meq 50 meq UNSCH PRN PO For Potassium 3.3 - 3.5 mEq/L; Start 07/06/16 at 07:45; Stop 07/07/16 at 09:21; Status DC Potassium Chloride (KCl 20 Meq Premix Inj) 100 ml @ 50 mls/hr Q2H IV Last administered on 07/08/16 14:47; Start 07/08/16 at 13:00; Stop 07/08/16 at 16:59 ; Status DC Potassium Chloride (KCl 40 Meq Premix Inj) 100 ml @ 50 mls/hr Q2H PRN IV For Potassium 2.8 - 3.2 mEq/L; Start 07/06/16 at 07:45; Stop 07/07/16 at 09:21; Status DC Propofol (Diprivan 1000 Mg/100ml Inj) 100 ml @ 0 mls/hr TITRATE IV Last administered on 07/06/16 01:52; Start 07/05/16 at 08:45; Stop 07/07/16 at 09:21 ; Status DC Sodium Bicarbonate 50 meq 50 meq ONCE ONCE IV PUSH Last administered on 09:52; Start 07/07/16 at 09:15; Stop 07/07/16 at 09:25; Status DC Sodium Bicarbonate (Sodium Bicarbonate 8.4% Inj) 50 meq ONCE ONCE IV PUSH Last administered on 07/05/16 10:36; Start 07/05/16 at 09:45; Stop 07/05/16 at 09:46; Status DC Sodium Chloride (1/2 NS 1000 ml Inj) 1,000 ml @ 75 mls/hr [id number] IV Last administered on 07/09/16 10:18; Start 07/06/16 at 18:00 Sodium Chloride (NS 1000 ml Inj) 1,000 ml @ 999 mls/hr BOLUS ONCE IV Last administered on 07/05/16 10:37; Start 07/05/16 at 09:45; Stop 07/05/16 at 10:45 ; Status DC Sodium Chloride (NS 250 ml Inj) 250 ml @ 250 mls/hr BOLUS ONCE IV Last administered on 07/07/16 18:16; Start 07/07/16 at 17:15; Stop 07/07/16 at 18:14 ; Status DC Sodium Chloride 2 ml 2 ml UNSCH PRN IVF FLUSH AFTER USING IV ACCESS Last administered on 07/08/16 09:35; Start 07/05/16 at 08:45 Sodium Phosphate/ Sodium Chloride (Sodium Phosphate Inj/NS 250 ml Inj) 250 ml @ 42 mls/hr UNSCH PRN IV For Phosphorus < 2.5 mg/dL; Start 07/06/16 at 07:45; Stop 07/07/16 at 09:22; Status DC Succinylcholine Chloride (Quelicin Inj) 100 mg ONCE ONCE IVP ; Start 07/05/16 at 08:45; Stop 07/05/16 at 08:46; Status DC Vancomycin HCl 1000 mg/Sodium Chloride 250 ml @ 250 mls/hr ONCE ONCE IV Last administered on 07/07/16 09:53; Start 07/07/16 at 09:15; Stop 07/07/16 at 10:14 ; Status DC Family History Unable to obtain Social History , was living with . No ETOH, no substance abuse, no smoking. Has been declining since Dec. using wheelchair. Physical Exam Vital Signs Vital Signs Date Time Temp Pulse Resp B/P Pulse Ox O2 Delivery O2 Flow Rate FiO2 07/09/16 06:00 98 07/09/16 04:00 97.9 89 18 106/53 96 07/09/16 04:00 98 07/09/16 02:00 98 07/09/16 00:00 97.4 98 20 145/70 96 07/09/16 00:00 98 07/08/16 22:00 99 07/08/16 20:27 99 Nasal Cannula 2.00 07/08/16 20:00 97.5 106 12 139/61 95 07/08/16 20:00 96 Nasal Cannula 4.00 07/08/16 20:00 106 07/08/16 18:00 100 Physical Exam GENERAL: This is a well-nourished, well-developed patient, in no apparent distress. SKIN: No rashes, ecchymoses or lesions. Cool and dry. HEAD: Atraumatic. Normocephalic. No temporal or scalp tenderness. EYES: Pupils equal round and reactive. Extraocular motions intact. No scleral icterus. No injection or drainage. ENT: Nose without bleeding, purulent drainage or septal hematoma. Throat without erythema, tonsillar hypertrophy or exudate. Uvula midline. Airway patent. NECK: Trachea midline. No JVD or lymphadenopathy. Supple, nontender, no meningeal signs. CARDIOVASCULAR: Regular rate and rhythm without murmurs, gallops, or rubs. RESPIRATORY: Diminished at bases GASTROINTESTINAL: Abdomen soft, non-tender, nondistended. No hepato-splenomegaly , or palpable masses. No guarding. MUSCULOSKELETAL: Extremities without clubbing, cyanosis. Dependant edema to arms. Trace pretibial edema, pedal pulses 2+ bilat. No joint tenderness, effusion, or edema noted. No calf tenderness. Negative Homans sign bilaterally. NEUROLOGICAL: Awake, oriented to self and . Slow to respond, following simple commands. No focal deficits Laboratory Laboratory Tests Test 07/08/16 07/09/16 20:51 05:20 Potassium Level 4.2 3.6 White Blood Count 13.9 Red Blood Count 3.42 Hemoglobin 10.1 Hematocrit 31.3 Mean Corpuscular Volume 91.4 Mean Corpuscular Hemoglobin 29.5 Mean Corpuscular Hemoglobin 32.3 Concent Red Cell Distribution Width 15.8 Platelet Count 192 Mean Platelet Volume 8.8 Neutrophils (%) (Auto) 84.6 Lymphocytes (%) (Auto) 7.9 Monocytes (%) (Auto) 6.8 Eosinophils (%) (Auto) 0.3 Basophils (%) (Auto) 0.4 Neutrophils # (Auto) 11.7 Lymphocytes # (Auto) 1.1 Monocytes # (Auto) 0.9 Eosinophils # (Auto) 0.0 Basophils # (Auto) 0.1 CBC Comment AUTO DIFF Differential Total Cells 100 Counted Neutrophils % (Manual) 75 Band Neutrophils % 4 Lymphocytes % 13 Monocytes % 5 Eosinophils % 1 Neutrophils # (Manual) 11.3 Metamyelocytes 2 Differential Comment FINAL DIFF MANUAL Platelet Estimate NORMAL Platelet Morphology Comment NORMAL Ovalocytes 1+ [place] Cells 1+ Acanthocytes OCC Sodium Level 145 Chloride Level 112 Carbon Dioxide Level 21.0 Anion Gap 12 Blood Urea Nitrogen 30 Creatinine 1.56 Estimat Glomerular Filtration 32 Rate Random Glucose 116 Calcium Level 8.3 Date/Time Procedure Status Source Growth 07/05/16 08:55 Aerobic Blood Culture - Preliminary Resulted Blood Peripheral NO GROWTH IN 4 DAYS 07/05/16 08:55 Anaerobic Blood Culture - Preliminary Resulted Blood Peripheral NO GROWTH IN 4 DAYS 07/05/16 08:40 Urine Culture - Final Complete Urine Clean Catch NO GROWTH IN 48 HOURS. Result Diagram: 07/09/16 0507/09/16 05 Imaging Last Impressions Renal Ultrasound 07/07/16 0000 Signed Impressions: Service Date/Time: Thursday, July 07, 2016 14:38 - CONCLUSION: Small bilateral renal cysts without obstruction. Renal size is small but probably appropriate for an 80-year-old. Francisco Matute MD FACR Lower Extremity Ultrasound 07/05/16 0000 Signed Impressions: Service Date/Time: June 12:08 - CONCLUSION: Normal examination. Issac Mead MD Head CT 07/05/16 0000 Signed Impressions: Service Date/Time: June 08:56 - CONCLUSION: 1. Remote lacunar infarct left basal ganglia. Chronic white matter ischemic changes. No acute finding compared with December 2015. Silvio Ochoa MD Chest X-Ray 07/05/16 0000 Signed Impressions: Service Date/Time: June 08:38 - CONCLUSION: Endotracheal tube in appropriate position with tip measuring 4 cm from the ivonne. Otherwise , no acute cardiopulmonary abnormality is identified. Issac Shipman MD Brain MRI 07/05/16 0000 Signed Impressions: Service Date/Time: June 15:14 - CONCLUSION: 1. No acute findings. Chronic white matter ischemic changes. No recent infarct. Basal ganglia calcifications. Silvio Ochoa MD A/P Diagnosis: (1) Acute respiratory failure Plan: resolved (2) Metabolic encephalopathy (3) HTN (hypertension) (4) Acute renal failure (5) Dementia (6) Type 2 diabetes mellitus (7) Hyperlipidemia (8) Physical deconditioning (9) Hx of deep venous thrombosis Assessment and Plan Thank you for this consultation, we will assume medical management 80-year-old female found unresponsive, etiology unclear as to altered mental status, no evidence of stroke. Was in respiratory distress and required intubation. Extubated 07/08/2016. No respiratory distress noted, stable Respiratory failure, extubated. Currently stable. -Continue with oxygen to keep sats greater on 2 L -Continue DuoNeb's when necessary Leukocytosis, unclear as to the source of infection. Continue with empiric antibiotics Monitor WBC, it is trending down. Continue to monitor for fever Consider discontinuing antibiotics if WBC continues to trend down and cultures remain negative. Acute renal injury, now improving. Renal ultrasound negative continue with cautious hydration, decrease IV fluids to 30 cc an hour Follow BMP in the morning Avoid nephrotoxic agents Encephalopathy, history of dementia. Patient found unresponsive. No clear etiology as to why patient was unresponsive. Negative for acute stroke. Dementia -Continue to monitor neuro status -EEG results have been reviewed. -Neurology following, Dr. Taylor's input is appreciated. Continue with Sinemet History right leg DVT, diagnosed December 2015. Had been on Eliquis. Currently on heparin 5000 units subcutaneous twice a day due to renal dysfunction -Likely does not need any anticoagulation, has been on Eliquis for 6 months. Type 2 diabetes Accu-Cheks before meals and at bedtime with insulin therapy Hypertension, initially uncontrolled required Cardene. BP stable Hx afib -Continue Cardizem -Hydralazine when necessary for elevated blood pressure Hyperlipidemia -Resume Lipitor Advanced directives and end-of-life care has been discussed with the patient's , at this time he requests full code. Case management has been consulted, SNF placement in 1-2 days PT and speech therapy evaluation If she remains stable, she will likely be transferred out of ICU in the morning Plan of care has been discussed with the patient's , RN and attending. Further management of the patient will be dependent on the hospital course This patient was seen by myself and Dr. Lema, this H&P is written on her behalf Problem Qualifiers (1) Acute respiratory failure: Qualified Code: J96.00 - Acute respiratory failure, unspecified whether with hypoxia or hypercapnia (2) HTN (hypertension): Qualified Code: I10 - Essential hypertension (3) Acute renal failure: Qualified Code: N17.9 - Acute renal failure, unspecified acute renal failure type (4) Dementia: Qualified Code: F03.90 - Dementia without behavioral disturbance, unspecified dementia type (5) Type 2 diabetes mellitus: Qualified Code: E11.8 - Type 2 diabetes mellitus with complication, unspecified usp insulin use status (6) Hyperlipidemia: Qualified Code: E78.5 - Hyperlipidemia, unspecified hyperlipidemia type Sharon Mays July 09, 2016 17:42
[2016-07-09] MEDS: CHLORHEXIDINE GLUCONATE 2 % 1 PACK (2 CLOTHS) TOP SCH (20:54)
[2016-07-09] MEDS: ATORVASTATIN 40 MG TAB PO SCH (20:56)
[2016-07-10] VITALS (9 sets, daily range): BP systolic 143–163; BP diastolic 66–85; PULSE 66–101; RESP 11–18; TEMP 98–98.9; O2SAT 97–100
[2016-07-10] MEDS: PIPERACIL-TAZO 2.25 GM PREMIX 50 ML IV SCH ×3 (02:57→16:52)
[2016-07-10] MEDS: INSULIN NovoLIN REGULAR SUPPLEMENTAL SCALE SQ SCH ×4 (05:00→22:29)
[2016-07-10] MEDS: CARBIDOPA/LEVODOPA 25 MG/100 MG TAB PO SCH (05:50)
[2016-07-10 05:55] LABS: AUTOMATED NEUTROPHIL # 8.1 TH/MM3 (1.8-7.7); BASOPHIL % 0.5 % (0.0-2.0); EOSINOPHIL # 0.2 TH/MM3 (0-0.4); EOSINOPHIL % 2.2 % (0.0-4.0); HEMATOCRIT 29.6 % (35.0-46.0); HEMO FLAGS DIFF FINAL; LYMPH % 10.4 % (9.0-44.0); LYMPHOCYTE # 1.1 TH/MM3 (1.0-4.8); MEAN CORPUSCULAR HEMOGLOBIN 29.7 PG (27.0-34.0); MEAN CORPUSCULAR HGB CONC 32.6 % (32.0-36.0); MONO % 7.8 % (0.0-8.0); NEUT % 79.1 % (16.0-70.0); PLATELET COUNT 181 TH/MM3 (150-450); RED BLOOD COUNT 3.26 MIL/MM3 (4.00-5.30); RED CELL DISTRIBUTION WIDTH 15.7 % (11.6-17.2); WHITE BLOOD COUNT 10.2 TH/MM3 (4.0-11.0)
[2016-07-10 06:06] LABS: BICARBONATE 20.7 MEQ/L (21.0-32.0); POTASSIUM 3.5 MEQ/L (3.5-5.1)
[2016-07-10] MEDS: CHLORHEXIDINE 0.12% (ORAL KIT) 15 ML CUP MT SCH ×2 (08:00→20:00)
--- NOTE | 2016-07-10 08:59 | HHI.PR ---
Subjective Remarks alert off vent Objective Vital Signs Date Time Temp Pulse Resp B/P Pulse Ox O2 Delivery O2 Flow Rate FiO2 07/10/16 06:00 88 07/10/16 04:00 93 07/10/16 04:00 98.9 93 15 143/68 97 07/10/16 02:00 94 07/10/16 00:00 97 07/10/16 00:00 98.7 97 18 146/66 98 07/09/16 22:00 98 07/09/16 20:00 93 07/09/16 20:00 98.8 93 14 140/61 98 07/09/16 19:00 99 Nasal Cannula 2.00 07/09/16 18:00 93 07/09/16 16:00 90 07/09/16 16:00 98.1 90 13 157/74 99 07/09/16 14:00 89 07/09/16 12:00 97.7 89 13 151/67 99 07/09/16 12:00 89 07/09/16 10:00 85 I/O 07/09/16 07/09/16 07/09/16 07/10/16 07/10/16 07/10/16 07:00 15:00 23:00 07:00 15:00 23:00 Intake Total 832 ml 565 ml 571 ml 311 ml Output Total 200 ml 350 ml 350 ml 200 ml Balance 632 ml 215 ml 221 ml 111 ml Intake Oral 200 ml 50 ml IV Total 832 ml 565 ml 371 ml 261 ml Output Urine Total 200 ml 350 ml 350 ml 200 ml # Bowel Movements 2 Result Diagram: 07/10/16 0529 07/10/16 0529 Objective Remarks awake nl speech demented can wiggle fingers a little bilat better and moves arms a little better picks up off bed 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
[2016-07-10] MEDS: SODIUM CHLOR 0.45% 1000 ML INJ 1,000 ML IV SCH (09:34)
[2016-07-10] MEDS: PANTOPRAZOLE SODIUM 40 MG VIAL IV SCH (09:56)
[2016-07-10] MEDS: DILTIAZEM-CD 240 MG CAP ER PO SCH (09:56)
[2016-07-10] MEDS: HEPARIN SODIUM - SQ 10,000 UNITS/ML VIAL SQ SCH ×2 (09:56→22:24)
--- NOTE | 2016-07-10 09:59 | HHI.PR ---
Subjective Remarks awake, verbalizing little following simple commands difficult to obtain ROS Objective Objective Results - Vital Signs Date Time Temp Pulse Resp B/P Pulse Ox O2 Delivery O2 Flow Rate FiO2 07/10/16 06:00 88 07/10/16 04:00 93 07/10/16 04:00 98.9 93 15 143/68 97 07/10/16 02:00 94 07/10/16 00:00 97 07/10/16 00:00 98.7 97 18 146/66 98 07/09/16 22:00 98 07/09/16 20:00 93 07/09/16 20:00 98.8 93 14 140/61 98 07/09/16 19:00 99 Nasal Cannula 2.00 07/09/16 19:00 99 Nasal Cannula 2.00 07/09/16 18:00 93 07/09/16 16:00 90 07/09/16 16:00 98.1 90 13 157/74 99 07/09/16 14:00 89 07/09/16 12:00 97.7 89 13 151/67 99 07/09/16 12:00 89 07/09/16 10:00 85 I/O 07/09/16 07/09/16 07/09/16 07/10/16 07/10/16 07/10/16 07:00 15:00 23:00 07:00 15:00 23:00 Intake Total 832 ml 565 ml 571 ml 311 ml Output Total 200 ml 350 ml 350 ml 200 ml Balance 632 ml 215 ml 221 ml 111 ml Intake Oral 200 ml 50 ml IV Total 832 ml 565 ml 371 ml 261 ml Output Urine Total 200 ml 350 ml 350 ml 200 ml # Bowel Movements 2 Result Diagram: 07/10/16 0529 07/10/16 0529 Imaging Last Impressions Renal Ultrasound 07/07/16 0000 Signed Impressions: Service Date/Time: Thursday, July 07, 2016 14:38 - CONCLUSION: Small bilateral renal cysts without obstruction. Renal size is small but probably appropriate for an 80-year-old. Francisco Matute MD FACR Lower Extremity Ultrasound 07/05/16 0000 Signed Impressions: Service Date/Time: June 12:08 - CONCLUSION: Normal examination. Issac Mead MD Head CT 07/05/16 0000 Signed Impressions: Service Date/Time: June 08:56 - CONCLUSION: 1. Remote lacunar infarct left basal ganglia. Chronic white matter ischemic changes. No acute finding compared with December 2015. Silvio Ochoa MD Chest X-Ray 07/05/16 0000 Signed Impressions: Service Date/Time: June 08:38 - CONCLUSION: Endotracheal tube in appropriate position with tip measuring 4 cm from the ivonne. Otherwise , no acute cardiopulmonary abnormality is identified. Issac Shipman MD Brain MRI 07/05/16 0000 Signed Impressions: Service Date/Time: June 15:14 - CONCLUSION: 1. No acute findings. Chronic white matter ischemic changes. No recent infarct. Basal ganglia calcifications. Silvio Ochoa MD Other Results Laboratory Tests Test 07/10/16 05:29 White Blood Count 10.2 Red Blood Count 3.26 Hemoglobin 9.7 Hematocrit 29.6 Mean Corpuscular Volume 91.0 Mean Corpuscular Hemoglobin 29.7 Mean Corpuscular Hemoglobin 32.6 Concent Red Cell Distribution Width 15.7 Platelet Count 181 Mean Platelet Volume 8.6 Neutrophils (%) (Auto) 79.1 Lymphocytes (%) (Auto) 10.4 Monocytes (%) (Auto) 7.8 Eosinophils (%) (Auto) 2.2 Basophils (%) (Auto) 0.5 Neutrophils # (Auto) 8.1 Lymphocytes # (Auto) 1.1 Monocytes # (Auto) 0.8 Eosinophils # (Auto) 0.2 Basophils # (Auto) 0.0 CBC Comment DIFF FINAL Differential Comment Sodium Level 144 Potassium Level 3.5 Chloride Level 112 Carbon Dioxide Level 20.7 Anion Gap 11 Blood Urea Nitrogen 25 Creatinine 1.51 Estimat Glomerular Filtration 33 Rate Random Glucose 90 Calcium Level 8.2 ROS General: Other (unable to obtain ROS) Physical Exam Physical Exam GENERAL: This is a well-nourished, well-developed patient, in no apparent distress. SKIN: vulva erythematous. Pressure area noted to left buttock, skin excoriated HEAD: Atraumatic. Normocephalic. No temporal or scalp tenderness. EYES: Pupils equal round and reactive. Extraocular motions intact. No scleral icterus. No injection or drainage. ENT: Nose without bleeding, purulent drainage or septal hematoma. Throat without erythema, tonsillar hypertrophy or exudate. Uvula midline. Airway patent. NECK: Trachea midline. No JVD or lymphadenopathy. Supple, nontender, no meningeal signs. CARDIOVASCULAR: Regular rate and rhythm without murmurs, gallops, or rubs. RESPIRATORY: Diminished at bases GASTROINTESTINAL: Abdomen soft, non-tender, nondistended. No hepato-splenomegaly , or palpable masses. No guarding. MUSCULOSKELETAL: Extremities without clubbing, cyanosis. Dependant edema to arms. Trace pretibial edema, pedal pulses 2+ bilat. No joint tenderness, effusion, or edema noted. No calf tenderness. Negative Homans sign bilaterally. NEUROLOGICAL: Awake, oriented to self. Slow to respond, following simple commands. No focal deficits Urinary Catheter: Yes Assessment to: Remove Grimm insert reason: ICU Pt Getting Diuretics Vascular Central Line Catheter: No A/P Diagnosis: (1) Acute respiratory failure Plan: resolved (2) Metabolic encephalopathy (3) HTN (hypertension) (4) Acute renal failure (5) Dementia (6) Type 2 diabetes mellitus (7) Hyperlipidemia (8) Physical deconditioning (9) Hx of deep venous thrombosis Assessment and Plan 80-year-old female found unresponsive, etiology unclear as to altered mental status, no evidence of stroke. Was in respiratory distress and required intubation. Extubated 07/08/2016. No respiratory distress noted, stable Respiratory failure, extubated. Currently stable. -Continue with oxygen to keep sats greater on 2 L -Continue DuoNeb's when necessary Leukocytosis, unclear as to the source of infection. Continue with empiric antibiotics, stop in am -cultures negative Monitor WBC, now normal Continue to monitor for fever Acute renal injury, now improving. Renal ultrasound negative continue with cautious hydration, continue IVF NS at 30/hr Avoid nephrotoxic agents -renal function markedly improved Encephalopathy, history of dementia. Patient found unresponsive. No clear etiology as to why patient was unresponsive. Negative for acute stroke. Dementia -Continue to monitor neuro status -EEG results have been reviewed. -Neurology following, Dr. Taylor's input is appreciated. -work up in progress Mahin rich'd, started on Mestinon History right leg DVT, diagnosed December 2015. Had been on Eliquis. Currently on heparin 5000 units subcutaneous twice a day due to renal dysfunction -Likely does not need any anticoagulation, has been on Eliquis for 6 months. Type 2 diabetes Accu-Cheks before meals and at bedtime with insulin therapy Hypertension, initially uncontrolled required Cardene. BP stable Hx afib -Continue Cardizem -Hydralazine when necessary for elevated blood pressure Hyperlipidemia -continue Lipitor Advanced directives and end-of-life care has been discussed with the patient's , at this time he requests full code. Case management has been consulted, SNF placement in 1-2 days PT and speech therapy evaluation Swallow eval DC foly Wound care consult, pressure area to buttock Transfer out of ICU today Labs in am D/W RN D/W Dr. Lema This patient was seen by myself and Dr. Lema, this note is written on her behalf Problem Qualifiers (1) Acute respiratory failure: Qualified Code: J96.00 - Acute respiratory failure, unspecified whether with hypoxia or hypercapnia (2) HTN (hypertension): Qualified Code: I10 - Essential hypertension (3) Acute renal failure: Qualified Code: N17.9 - Acute renal failure, unspecified acute renal failure type (4) Dementia: Qualified Code: F03.90 - Dementia without behavioral disturbance, unspecified dementia type (5) Type 2 diabetes mellitus: Qualified Code: E11.8 - Type 2 diabetes mellitus with complication, unspecified nursing home insulin use status (6) Hyperlipidemia: Qualified Code: E78.5 - Hyperlipidemia, unspecified hyperlipidemia type Sharon Mays July 10, 2016 09:59
[2016-07-10] MEDS ORDERED: POTASSIUM CHLORIDE 25 MEQ EFFERVESCENT TAB PO ONE (11:15)
[2016-07-10] MEDS: METHYLPHENIDATE HCL 5 MG TAB PO SCH (11:40)
[2016-07-10] MEDS: hydrALAZINE HCL 20 MG/ML VIAL IV PRN (11:47)
[2016-07-10] MEDS: ATORVASTATIN 40 MG TAB PO SCH (22:24)
[2016-07-11] VITALS (11 sets, daily range): BP systolic 150–192; BP diastolic 66–88; PULSE 82–106; RESP 16–19; TEMP 97.2–97.6; O2SAT 94–99
[2016-07-11] MEDS: PIPERACIL-TAZO 2.25 GM PREMIX 50 ML IV SCH (02:36)
[2016-07-11] MEDS: CHLORHEXIDINE GLUCONATE 2 % 1 PACK (2 CLOTHS) TOP SCH (04:00)
[2016-07-11] MEDS: hydrALAZINE HCL 20 MG/ML VIAL IV PRN ×2 (04:15→23:47)
[2016-07-11] MEDS: SODIUM CHLORIDE 0.9% FLUSH 10 ML FLUSH IVF PRN ×2 (04:16→23:47)
[2016-07-11] MEDS: INSULIN NovoLIN REGULAR SUPPLEMENTAL SCALE SQ SCH ×4 (05:00→23:00)
[2016-07-11 07:37] LABS: HEMATOCRIT 35.2 % (35.0-46.0); MEAN CELL VOLUME 91.6 FL (80.0-100.0); MEAN CORPUSCULAR HEMOGLOBIN 28.9 PG (27.0-34.0); MEAN CORPUSCULAR HGB CONC 31.5 % (32.0-36.0); PLATELET COUNT 203 TH/MM3 (150-450); RED BLOOD COUNT 3.84 MIL/MM3 (4.00-5.30); RED CELL DISTRIBUTION WIDTH 15.3 % (11.6-17.2); REVIEW FLAG FINAL; WHITE BLOOD COUNT 11.4 TH/MM3 (4.0-11.0)
[2016-07-11] MEDS: CHLORHEXIDINE 0.12% (ORAL KIT) 15 ML CUP MT SCH ×2 (08:00→20:00)
[2016-07-11 08:07] LABS: BICARBONATE 20.6 MEQ/L (21.0-32.0); POTASSIUM 3.2 MEQ/L (3.5-5.1)
[2016-07-11] MEDS: PANTOPRAZOLE SODIUM 40 MG VIAL IV SCH (09:00)
[2016-07-11] MEDS ORDERED: POTASSIUM CHLORIDE 25 MEQ EFFERVESCENT TAB PO ONE (09:00)
[2016-07-11] MEDS: DILTIAZEM-CD 240 MG CAP ER PO SCH (09:28)
[2016-07-11] MEDS: METHYLPHENIDATE HCL 5 MG TAB PO SCH ×2 (09:28→11:32)
[2016-07-11] MEDS: SODIUM CHLOR 0.45% 1000 ML INJ 1,000 ML IV SCH (09:34)
--- NOTE | 2016-07-11 09:43 | HHI.PR ---
Subjective Remarks Resting in bed eyes open but only spoke one soft word No family in room Patient has food in the room but is not attempting to eat and does not answer when asked if she is hungry Afebrile (Zofia Alvarenga) Objective Objective Results - Vital Signs Date Time Temp Pulse Resp B/P Pulse Ox O2 Delivery O2 Flow Rate FiO2 07/11/16 08:04 97.4 88 19 156/68 97 07/11/16 04:36 150/72 07/11/16 04:05 192/80 07/11/16 04:00 Nasal Cannula 2.00 Humidified 07/11/16 04:00 97.2 88 18 177/81 94 07/11/16 00:00 97.3 88 16 182/83 98 07/11/16 00:00 Nasal Cannula 2.00 Humidified 07/10/16 20:15 101 07/10/16 20:00 98.0 75 16 163/85 100 07/10/16 20:00 Nasal Cannula 2.00 Humidified 07/10/16 14:48 Nasal Cannula 2.00 07/10/16 13:23 98.4 66 18 163/73 99 07/10/16 12:00 98.5 87 11 162/71 98 I/O 07/10/16 07/10/16 07/10/16 07/11/16 07/11/16 07/11/16 07:00 15:00 23:00 07:00 15:00 23:00 Intake Total 311 ml 100 ml Output Total 200 ml 100 ml Balance 111 ml -100 ml 100 ml Intake Oral 50 ml 0 ml IV Total 261 ml 100 ml Output Urine Total 200 ml 100 ml # Voids 2 # Bowel Movements 0 (Zofia Alvarenga) Result Diagram: 07/11/1658 07/11/16 0558 ROS General: Fatigue, Weakness, Other (Limited review of systems) HEENT: Dysphagia (possible) Neuro/MS: Confusion (altered mental status) (Zofia Alvarenga) Physical Exam Physical Exam PHYSICAL EXAMINATION GENERAL: This is a thin chronically ill female resting in the bed She is awake, spoke one word. HEAD: Normocephalic Facial features appear symmetric. OROPHARYNGEAL: Oropharynx dry NECK: Supple. CARDIAC: Regular rhythm, regular rate, S1 and S2 are heard. Murmur []; no gallops or rubs. LUNGS: Clear to auscultation bilaterally. [] wheeze, [] rhonchi or [] rale. No use of accessory muscles on inspiration or expiration. ABDOMEN: Soft, nontender, no organomegaly or masses. Bowel sounds are heard in all four quadrants. No rebound. No guarding. EXTREMITIES: no edema. . NEUROLOGICAL: Patient mood and affect flat SKIN:Warm, dry (Zofia Alvarenga) A/P Assessment and Plan 80-year-old female found unresponsive, etiology unclear as to altered mental status, no evidence of stroke. Was in respiratory distress and required intubation. Extubated 07/08/2016. Vital signs reviewed, patient had systolic BP at 190 earlier but now 150/72, afebrile Labs reviewed leukocytosis noted at 11.4, Anemia but improved hemoglobin at 11.1, hypokalemia, with potassium by mouth today, will recheck BMP in the morning No respiratory distress noted, stable Respiratory failure, extubated. No acute shortness of breath, volumes are low Maintain O2 and DuoNeb nebs Acute renal injury, now improving. continue with cautious hydration, continue IVF NS at 30/hr , oral mucous membranes appear very dry -renal function markedly improved Encephalopathy, history of dementia. Patient is making no effort to eat, which may be due to her end-stage dementi -Continue to monitor neuro status, patient not speaking except for 1 word this morning, otherwise eyes open but with a blank stare. Speech to eval her swallowing. -EEG results have been reviewed. -Neurology following, Dr. Taylor's input is appreciated., Will need his expert opinion and medical management History right leg DVT, diagnosed December 2015. Had been on Eliquis. Currently on heparin 5000 units subcutaneous twice a day due to renal dysfunction -Likely does not need any anticoagulation, has been on Eliquis for 6 months. Type 2 diabetes Accu-Cheks before meals and at bedtime with insulin therapy Hypertension, initially uncontrolled required Cardene. BP stable Hx afib, Continue Cardizem -Hydralazine when necessary for elevated blood pressure Advanced directives and end-of-life care has been discussed with the patient's , at this time he requests full code. Case management has been consulted, SNF placement in 1-2 days PT and speech therapy, recommendation for pureed diet and thin liquids (Zofia Alvarenga) Assessment and Plan patient seen and examined looks more alert today oriented to person, thinks she is in [facility] not oriented to time, does not know the president no family at bed side continue current care off antibiotics monitor leucocytosis (Margarita Lema MD) Zofia Alvarenga July 11, 2016 09:42 Margarita Lema MD July 11, 2016 15:25
[2016-07-11] MEDS: HEPARIN SODIUM - SQ 10,000 UNITS/ML VIAL SQ SCH ×2 (11:36→22:19)
[2016-07-11] MEDS: ATORVASTATIN 40 MG TAB PO SCH (22:19)
[2016-07-12] VITALS (10 sets, daily range): BP systolic 142–175; BP diastolic 65–83; PULSE 84–93; RESP 12–18; TEMP 97.3–98.3; O2SAT 93–99
[2016-07-12] MEDS: CHLORHEXIDINE GLUCONATE 2 % 1 PACK (2 CLOTHS) TOP SCH (04:00)
[2016-07-12] MEDS: INSULIN NovoLIN REGULAR SUPPLEMENTAL SCALE SQ SCH ×4 (04:50→22:08)
[2016-07-12] MEDS: hydrALAZINE HCL 20 MG/ML VIAL IV PRN ×3 (05:06→18:09)
[2016-07-12] MEDS: SODIUM CHLORIDE 0.9% FLUSH 10 ML FLUSH IVF PRN (05:06)
[2016-07-12 07:14] LABS: AUTOMATED NEUTROPHIL # 9.1 TH/MM3 (1.8-7.7); BASOPHIL % 0.4 % (0.0-2.0); EOSINOPHIL # 0.3 TH/MM3 (0-0.4); EOSINOPHIL % 2.4 % (0.0-4.0); HEMATOCRIT 33.9 % (35.0-46.0); LYMPH % 7.3 % (9.0-44.0); LYMPHOCYTE # 0.8 TH/MM3 (1.0-4.8); MEAN CELL VOLUME 90.3 FL (80.0-100.0); MEAN CORPUSCULAR HEMOGLOBIN 29.4 PG (27.0-34.0); MEAN CORPUSCULAR HGB CONC 32.5 % (32.0-36.0); NEUT % 82.9 % (16.0-70.0); PLATELET COUNT 217 TH/MM3 (150-450); RED BLOOD COUNT 3.75 MIL/MM3 (4.00-5.30); RED CELL DISTRIBUTION WIDTH 15.2 % (11.6-17.2)
[2016-07-12 07:15] LABS: HEMO FLAGS AUTO DIFF
[2016-07-12 07:47] LABS: BICARBONATE 21.3 MEQ/L (21.0-32.0); POTASSIUM 3.4 MEQ/L (3.5-5.1)
[2016-07-12 08:08] LABS: BANDS 6 % (0-6); EOSINOPHILS 3 % (0-4); NEUTROPHIL # MANUAL DIFF 8.4 TH/MM3 (1.8-7.7); PLATELET ESTIMATE SMEAR NORMAL (NORMAL); PLATELET MORPHOLOGY NORMAL (NORMAL); POLYS (SEG NEUTROPHILS) 70 % (16-70); SCAN/DIFF FINAL DIFF MANUAL; WBC DIFF SAMPLE 100
[2016-07-12] MEDS: METHYLPHENIDATE HCL 5 MG TAB PO SCH ×2 (08:33→11:17)
[2016-07-12] MEDS: DILTIAZEM-CD 240 MG CAP ER PO SCH (08:33)
[2016-07-12] MEDS: PANTOPRAZOLE SODIUM 40 MG VIAL IV SCH (08:34)
[2016-07-12] MEDS: CHLORHEXIDINE 0.12% (ORAL KIT) 15 ML CUP MT SCH ×2 (08:34→20:00)
--- NOTE | 2016-07-12 09:24 | HHI.PR ---
Subjective Remarks alert off vent Objective Vital Signs Date Time Temp Pulse Resp B/P Pulse Ox O2 Delivery O2 Flow Rate FiO2 07/12/16 08:11 93 Nasal Cannula 2.00 07/12/16 05:30 146/82 07/12/16 04:30 Nasal Cannula 2.00 Humidified 07/12/16 04:30 98.3 85 12 168/80 96 162/78 07/12/16 00:20 90 18 154/78 95 07/12/16 00:20 Nasal Cannula 2.00 Humidified 07/11/16 23:32 188/88 07/11/16 21:28 97.6 82 16 175/85 97 07/11/16 21:28 Nasal Cannula 2.00 Humidified 07/11/16 20:00 106 07/11/16 16:04 97.4 87 18 163/77 99 07/11/16 12:04 97.5 94 19 160/66 94 I/O 07/11/16 07/11/16 07/11/16 07/12/16 07/12/16 07/12/16 07:00 15:00 23:00 07:00 15:00 23:00 Intake Total 100 ml 240 ml 0 ml 0 ml Balance 100 ml 240 ml 0 ml 0 ml Intake Oral 0 ml 240 ml 0 ml 0 ml IV Total 100 ml 0 ml # Voids 2 4 2 3 # Bowel Movements 0 1 0 0 Result Diagram: 07/12/1620 07/12/16 0620 Objective Remarks awake nl speech not hospital demented alittle more movement all 4 ext alert Assessment and Plan Assessment and Plan imp i dw generally weak since last hosp visit then in bed in am eyes open not responding i think she should do well neurowise and should improve q day can follow commands now no sedatives PT check mg labs pend eeg neg try sinemet a little better q day still no major inc on sinemet so dc it and try ritalin if ok with med team PT 07/12/16 doing ok on ritalin add maicola needs oob to chair fu office i will sign off Les Taylor MD Jul 12, 2016 09:23
[2016-07-12] MEDS: SODIUM CHLOR 0.45% 1000 ML INJ 1,000 ML IV SCH (09:34)
--- NOTE | 2016-07-12 09:52 | HHI.PR ---
Subjective Remarks Resting in bed eyes open more alert has been in room this morning in and out Patient beginning to eat as long as she is fed Afebrile (Zofia Alvarenga) Objective Objective Results - Vital Signs Date Time Temp Pulse Resp B/P Pulse Ox O2 Delivery O2 Flow Rate FiO2 07/12/16 08:11 93 Nasal Cannula 2.00 07/12/16 08:00 97.3 91 14 160/74 97 07/12/16 05:30 146/82 07/12/16 04:30 Nasal Cannula 2.00 Humidified 07/12/16 04:30 98.3 85 12 168/80 96 162/78 07/12/16 00:20 90 18 154/78 95 07/12/16 00:20 Nasal Cannula 2.00 Humidified 07/11/16 23:32 188/88 07/11/16 21:28 97.6 82 16 175/85 97 07/11/16 21:28 Nasal Cannula 2.00 Humidified 07/11/16 20:00 106 07/11/16 16:04 97.4 87 18 163/77 99 07/11/16 12:04 97.5 94 19 160/66 94 I/O 07/11/16 07/11/16 07/11/16 07/12/16 07/12/16 07/12/16 07:00 15:00 23:00 07:00 15:00 23:00 Intake Total 100 ml 240 ml 0 ml 0 ml Balance 100 ml 240 ml 0 ml 0 ml Intake Oral 0 ml 240 ml 0 ml 0 ml IV Total 100 ml 0 ml # Voids 2 4 2 3 # Bowel Movements 0 1 0 0 (Zofia Alvarenga) Result Diagram: 07/12/16 0620 07/12/16 0620 ROS General: Fatigue (generalized but mildly improved), Other (10 point ROS done positives noted) Pulmonary: SOB (none) GI: BM (bowel regimen), Other (total feed pursed out or family) (Zofia Alvarenga) Physical Exam Physical Exam PHYSICAL EXAMINATION GENERAL: This is a slim elderly female who appears to be in no acute distress. She is alert and awake today HEAD: Normocephalic without any lesion or mass noted. Facial features appear symmetric. OROPHARYNGEAL: Oropharynx without erythema or edema. NECK: Supple. Trachea midline without deviation. CARDIAC: Regular rhythm, regular rate, S1 and S2 are heard. LUNGS: Low volumes to auscultation bilaterally. No rhonchi or wheezing noted ABDOMEN: Soft, nontender, no organomegaly or masses. Bowel sounds are heard in all four quadrants. No rebound. No guarding. EXTREMITIES: no edema. As her extremities randomly NEUROLOGICAL: Patient mood and affect flat SKIN:Warm and moist (Zofia Alvarenga) A/P Assessment and Plan Vital signs reviewed, trends continue to be normal with BP systolic monitoring, 140s to 160s, afebrile, has when necessary hydralazine if needed Labs reviewed leukocytosis noted at 11. , Trend normal today Anemia but improved hemoglobin at 11. hypokalemia mild, with potassium by mouth today 1 dose 25 mEq, recheck BMP in the morning No respiratory distress noted, stable Respiratory failure, resolved No acute shortness of breath, volumes are low Maintain O2 and DuoNeb nebs Acute renal injury, continues to be improving. continue with cautious hydration, continue IVF NS at 30/hr , oral mucous membranes appear very dry Encephalopathy, history of dementia. Patient will eat if she is prompted and assisted with her feeding, which may be due to her end-stage dementia -Continue to monitor neuro status, more alert today. He is beginning to speak randomly short sentences. Looks like her norm -EEG results have been reviewed. -Neurology following, Dr. Taylor's input is appreciated., Will need his expert opinion and medical management, signed off will follow in the office if needed doing ok on ritalin, added Namenda Increase activity, PT to have out of bed t to chair History right leg DVT, diagnosed December 2015. Had been on Eliquis. Currently on heparin 5000 units subcutaneous twice a day due to renal dysfunction -Likely does not need any anticoagulation, has been on Eliquis for 6 months. Type 2 diabetes Accu-Cheks before meals and at bedtime with insulin therapy Hx afib, Continue Cardizem Advanced directives and end-of-life care has been discussed with the patient's , at this time he requests full code. Case management has been consulted, SNF placement in today or in a.m. PT and speech therapy, recommendation for pureed diet and thin liquids (Zofia Alvarenga) Assessment and Plan patient seen and examined clinically more alert d/w at bed side declining progressively for last few months, need [facility] care d/w case management start D/c planning anticipate discharge in 1-2 days d/w Zofia DICKSON (Margarita Lema MD) Zofia Alvarenga Jul 12, 2016 09:52 Margarita Lema MD Jul 12, 2016 15:00
[2016-07-12] MEDS ORDERED: POTASSIUM CHLORIDE 25 MEQ EFFERVESCENT TAB PO ONE (10:00)
[2016-07-12] MEDS: MEMANTINE HCL 5 MG TAB PO SCH (11:17)
[2016-07-12] MEDS: HEPARIN SODIUM - SQ 10,000 UNITS/ML VIAL SQ SCH ×2 (11:17→21:19)
[2016-07-12 13:05] LABS: C. DIFF EPI 027 PRESUMPTIVE NEGATIVE (NEGATIVE); C. DIFF TOXIN PCR NEGATIVE (NEGATIVE)
[2016-07-12 13:52] LABS: STRIATED MUCLE AB TITER ND (<1:40)
[2016-07-12 19:52] LABS: ACETYLCHOLINE REC BINDING LESS THAN 0.30 nmol/L (())
[2016-07-12] MEDS: ATORVASTATIN 40 MG TAB PO SCH (21:12)
[2016-07-13 03:53] VITALS: BP 156/76; PULSE 86; RESP 12; TEMP 98; O2SAT 99
[2016-07-13] MEDS: INSULIN NovoLIN REGULAR SUPPLEMENTAL SCALE SQ SCH ×3 (04:11→17:00)
[2016-07-13] MEDS: CHLORHEXIDINE 0.12% (ORAL KIT) 15 ML CUP MT SCH (07:35)
[2016-07-13 08:00] VITALS: BP 176/81; PULSE 85; PULSE 92; RESP 16; TEMP 97.6; O2SAT 99
[2016-07-13] MEDS: PANTOPRAZOLE SODIUM 40 MG VIAL IV SCH (08:10)
[2016-07-13] MEDS: DILTIAZEM-CD 240 MG CAP ER PO SCH (08:10)
[2016-07-13] MEDS: MEMANTINE HCL 5 MG TAB PO SCH (08:10)
[2016-07-13] MEDS: hydrALAZINE HCL 20 MG/ML VIAL IV PRN (08:10)
[2016-07-13] MEDS: METHYLPHENIDATE HCL 5 MG TAB PO SCH ×2 (08:10→11:36)
[2016-07-13] MEDS: SODIUM CHLORIDE 0.9% FLUSH 10 ML FLUSH IVF PRN (08:11)
[2016-07-13 08:49] LABS: AUTOMATED NEUTROPHIL # 8.4 TH/MM3 (1.8-7.7); BASOPHIL % 0.4 % (0.0-2.0); EOSINOPHIL # 0.3 TH/MM3 (0-0.4); EOSINOPHIL % 2.9 % (0.0-4.0); HEMATOCRIT 34.7 % (35.0-46.0); HEMO FLAGS DIFF FINAL; LYMPH % 8.2 % (9.0-44.0); LYMPHOCYTE # 0.8 TH/MM3 (1.0-4.8); MEAN CELL VOLUME 91.1 FL (80.0-100.0); MEAN CORPUSCULAR HEMOGLOBIN 29.2 PG (27.0-34.0); MEAN CORPUSCULAR HGB CONC 32.1 % (32.0-36.0); NEUT % 81.5 % (16.0-70.0); PLATELET COUNT 214 TH/MM3 (150-450); RED BLOOD COUNT 3.81 MIL/MM3 (4.00-5.30); RED CELL DISTRIBUTION WIDTH 15.5 % (11.6-17.2); WHITE BLOOD COUNT 10.3 TH/MM3 (4.0-11.0)
[2016-07-13 11:29] LABS: BICARBONATE 23.1 MEQ/L (21.0-32.0); POTASSIUM 3.8 MEQ/L (3.5-5.1)
[2016-07-13] MEDS: HEPARIN SODIUM - SQ 10,000 UNITS/ML VIAL SQ SCH (11:36)
[2016-07-13 12:00] VITALS: BP 124/58; PULSE 94; RESP 16; TEMP 97.7; O2SAT 98
[2016-07-13] MEDS ORDERED: cloNIDine HCL 0.1 MG TAB PO PRN (14:15)
--- NOTE | 2016-07-13 14:20 | HHI.PR ---
Subjective Remarks awakes to voice, oriented to self slow to respond difficult to obtain ROS whitfield reinserted, unable to void Objective Objective Results - Vital Signs Date Time Temp Pulse Resp B/P Pulse Ox O2 Delivery O2 Flow Rate FiO2 07/13/16 08:00 Nasal Cannula 2.00 Humidified 07/13/16 08:00 97.6 85 16 176/81 99 07/13/16 03:53 98.0 86 12 156/76 99 07/12/16 23:30 98.0 93 12 160/74 95 07/12/16 21:20 98.0 92 12 142/65 99 07/12/16 20:30 Nasal Cannula 2.00 Humidified 07/12/16 16:00 98.1 92 16 175/80 99 I/O 07/12/16 07/12/16 07/12/16 07/13/16 07/13/16 07/13/16 07:00 15:00 23:00 07:00 15:00 23:00 Intake Total 0 ml 256 ml 482 ml 200 ml Output Total 450 ml 150 ml Balance 0 ml 256 ml 32 ml 50 ml Intake Oral 0 ml 240 ml 480 ml 200 ml IV Total 16 ml 2 ml Output Urine Total 450 ml 150 ml # Voids 3 1 # Bowel Movements 0 0 0 0 Result Diagram: 07/13/16 0647 07/13/16 1045 Imaging Last Impressions Renal Ultrasound 07/07/16 0000 Signed Impressions: Service Date/Time: Thursday, July 07, 2016 14:38 - CONCLUSION: Small bilateral renal cysts without obstruction. Renal size is small but probably appropriate for an 80-year-old. Francisco Matute MD FACR Lower Extremity Ultrasound 07/05/16 0000 Signed Impressions: Service Date/Time: June 12:08 - CONCLUSION: Normal examination. Issac Mead MD Head CT 07/05/16 0000 Signed Impressions: Service Date/Time: June 08:56 - CONCLUSION: 1. Remote lacunar infarct left basal ganglia. Chronic white matter ischemic changes. No acute finding compared with December 2015. Silvio Ochoa MD Chest X-Ray 07/05/16 0000 Signed Impressions: Service Date/Time: June 08:38 - CONCLUSION: Endotracheal tube in appropriate position with tip measuring 4 cm from the ivonne. Otherwise , no acute cardiopulmonary abnormality is identified. Issac Shipman MD Brain MRI 07/05/16 0000 Signed Impressions: Service Date/Time: June 15:14 - CONCLUSION: 1. No acute findings. Chronic white matter ischemic changes. No recent infarct. Basal ganglia calcifications. Silvio Ochoa MD Other Results Laboratory Tests Test 07/13/16 07/13/16 06:47 10:45 White Blood Count 10.3 Red Blood Count 3.81 Hemoglobin 11.1 Hematocrit 34.7 Mean Corpuscular Volume 91.1 Mean Corpuscular Hemoglobin 29.2 Mean Corpuscular Hemoglobin 32.1 Concent Red Cell Distribution Width 15.5 Platelet Count 214 Mean Platelet Volume 9.2 Neutrophils (%) (Auto) 81.5 Lymphocytes (%) (Auto) 8.2 Monocytes (%) (Auto) 7.0 Eosinophils (%) (Auto) 2.9 Basophils (%) (Auto) 0.4 Neutrophils # (Auto) 8.4 Lymphocytes # (Auto) 0.8 Monocytes # (Auto) 0.7 Eosinophils # (Auto) 0.3 Basophils # (Auto) 0.0 CBC Comment DIFF FINAL Differential Comment Sodium Level 142 Potassium Level 3.8 Chloride Level 111 Carbon Dioxide Level 23.1 Anion Gap 8 Blood Urea Nitrogen 13 Creatinine 1.15 Estimat Glomerular Filtration 45 Rate Random Glucose 166 Calcium Level 8.9 ROS General: Other (unable to obtain ROS) Physical Exam Physical Exam GENERAL: This is a well-nourished, well-developed patient, in no apparent distress. SKIN: vulva erythematous. Pressure area noted to left buttock, skin excoriated HEAD: Atraumatic. Normocephalic. No temporal or scalp tenderness. EYES: Pupils equal round and reactive. Extraocular motions intact. No scleral icterus. No injection or drainage. ENT: Nose without bleeding, purulent drainage or septal hematoma. Throat without erythema, tonsillar hypertrophy or exudate. Uvula midline. Airway patent. NECK: Trachea midline. No JVD or lymphadenopathy. Supple, nontender, no meningeal signs. CARDIOVASCULAR: Regular rate and rhythm without murmurs, gallops, or rubs. RESPIRATORY: Diminished at bases GASTROINTESTINAL: Abdomen soft, non-tender, nondistended. No hepato-splenomegaly , or palpable masses. No guarding. MUSCULOSKELETAL: Extremities without clubbing, cyanosis. Dependant edema to arms. Trace pretibial edema, pedal pulses 2+ bilat. No joint tenderness, effusion, or edema noted. No calf tenderness. Negative Homans sign bilaterally. NEUROLOGICAL: Awake, oriented to self. Slow to respond, following simple commands. No focal deficits Urinary Catheter: Yes Assessment to: Remove Vascular Central Line Catheter: No A/P Diagnosis: (1) Acute respiratory failure Plan: resolved (2) Metabolic encephalopathy (3) HTN (hypertension) (4) Acute renal failure (5) Dementia (6) Type 2 diabetes mellitus (7) Hyperlipidemia (8) Physical deconditioning (9) Hx of deep venous thrombosis Assessment and Plan 80-year-old female found unresponsive, etiology unclear as to altered mental status, no evidence of stroke. Was in respiratory distress and required intubation. Extubated 07/08/2016. No respiratory distress noted, stable Respiratory failure, extubated. Currently stable. -Continue with oxygen to keep sats greater on 2 L -Continue DuoNeb's when necessary Leukocytosis, unclear as to the source of infection. Continue with empiric antibiotics, stop in am -cultures negative Monitor WBC, now normal Continue to monitor for fever Acute renal injury, now improving. Renal ultrasound negative continue with cautious hydration, continue IVF NS at 30/hr Avoid nephrotoxic agents -renal function markedly improved Encephalopathy, history of dementia. Patient found unresponsive. No clear etiology as to why patient was unresponsive. Negative for acute stroke. Dementia -Continue to monitor neuro status -EEG results have been reviewed. -Neurology following, Dr. Taylor's input is appreciated. -doing well on Ritalin, Namenda added. Stable from neuro standpoint History right leg DVT, diagnosed December 2015. Had been on Eliquis. Currently on heparin 5000 units subcutaneous twice a day due to renal dysfunction -Likely does not need any anticoagulation, has been on Eliquis for 6 months. Type 2 diabetes Accu-Cheks before meals and at bedtime with insulin therapy Hypertension, initially uncontrolled required Cardene. BP stable Hx afib -Continue Cardizem -BP up, add Clonidine PRN Hyperlipidemia -continue Lipitor Pressure ulcer -appreciate skin care input -specialty mattress -wound care daily Advanced directives and end-of-life care has been discussed with the patient's , at this time he requests full code. PT/OT DC whitfield reinserted for retention yesterday CM for DC planning, has a facility Discharge today F/U neurology, PCP Diet-heart healthy Activity -as tolerated D/W RN D/W Dr. Lema D/W CM This patient was seen by myself and Dr. Lema, this note is written on her behalf Problem Qualifiers (1) Acute respiratory failure: Qualified Code: J96.00 - Acute respiratory failure, unspecified whether with hypoxia or hypercapnia (2) HTN (hypertension): Qualified Code: I10 - Essential hypertension (3) Acute renal failure: Qualified Code: N17.9 - Acute renal failure, unspecified acute renal failure type (4) Dementia: Qualified Code: F03.90 - Dementia without behavioral disturbance, unspecified dementia type (5) Type 2 diabetes mellitus: Qualified Code: E11.8 - Type 2 diabetes mellitus with complication, unspecified long term care administrator insulin use status (6) Hyperlipidemia: Qualified Code: E78.5 - Hyperlipidemia, unspecified hyperlipidemia type Sharon Mays Jul 13, 2016 14:20
[2016-07-13] MEDS ORDERED: NAME5TAB2 PO ×2 (14:24)
--- NOTE | 2016-07-13 14:25 | HHI.DCPOC ---
Discharge Care Plan Diagnosis: (1) Metabolic encephalopathy (2) Physical deconditioning (3) Hx of deep venous thrombosis (4) Dementia (5) Type 2 diabetes mellitus (6) Acute renal failure (7) Acute respiratory failure (8) Hyperlipidemia (9) HTN (hypertension) Your Health Problems Are: Anxiety Difficulty with ADL Goals to Promote Your Health * To prevent worsening of your condition and complications * To maintain your health at the optimal level Directions to Meet Your Goals Take your medications as prescribed Follow your dietary instruction Follow activity as directed Keep your appointments as scheduled Take your immunizations and boosters as scheduled If your symptoms worsen call your PCP, if no PCP go to Urgent Care Center or Emergency Room Smoking is Dangerous to Your Health. Avoid second hand smoke Call the 24-hour hour crisis hotline for domestic abuse at Sharon Mays. [facility] Jul 13, 2016 14:25
--- NOTE | 2016-07-13 15:54 | HHI.DS ---
Discharge Summary Admission Date July 05, 2016 at 09:47 Discharge Date: Jul 13, 2016 Admitting Diagnosis respiratory failure (1) Acute respiratory failure (2) Metabolic encephalopathy (3) HTN (hypertension) (4) Acute renal failure (5) Dementia (6) Type 2 diabetes mellitus (7) Hyperlipidemia (8) Physical deconditioning (9) Hx of deep venous thrombosis CBC/BMP: 07/13/16 0647 07/13/16 1045 Significant Findings Laboratory Tests Test 07/11/16 07/12/16 07/13/16 07/13/16 05:58 06:20 06:47 10:45 White Blood Count 11.4 TH/MM3 (4.0-11.0) Red Blood Count 3.84 MIL/MM3 3.75 MIL/MM3 3.81 MIL/MM3 (4.00-5.30) (4.00-5.30) (4.00-5.30) Hemoglobin 11.1 GM/DL 11.0 GM/DL 11.1 GM/DL (11.6-15.3) (11.6-15.3) (11.6-15.3) Mean Corpuscular Hemoglobin 31.5 % Concent (32.0-36.0) Potassium Level 3.2 MEQ/L 3.4 MEQ/L (3.5-5.1) (3.5-5.1) Chloride Level 111 MEQ/L 111 MEQ/L 111 MEQ/L (98-107) (98-107) (98-107) Carbon Dioxide Level 20.6 MEQ/L (21.0-32.0) Creatinine 1.32 MG/DL 1.28 MG/DL 1.15 MG/DL (0.50-1.00) (0.50-1.00) (0.50-1.00) Estimat Glomerular Filtration 39 ML/MIN (>89) 40 ML/MIN (>89) 45 ML/MIN (>89) Rate Hematocrit 33.9 % 34.7 % (35.0-46.0) (35.0-46.0) Neutrophils (%) (Auto) 82.9 % 81.5 % (16.0-70.0) (16.0-70.0) Lymphocytes (%) (Auto) 7.3 % 8.2 % (9.0-44.0) (9.0-44.0) Neutrophils # (Auto) 9.1 TH/MM3 8.4 TH/MM3 (1.8-7.7) (1.8-7.7) Lymphocytes # (Auto) 0.8 TH/MM3 0.8 TH/MM3 (1.0-4.8) (1.0-4.8) Neutrophils # (Manual) 8.4 TH/MM3 (1.8-7.7) Random Glucose 129 MG/DL 166 MG/DL (74-106) (74-106) Imaging Last Impressions Renal Ultrasound 07/07/16 Signed Impressions: Service Date/Time: Thursday, July 07, 2016 14:38 - CONCLUSION: Small bilateral renal cysts without obstruction. Renal size is small but probably appropriate for an 80-year-old. Francisco Matute MD FACR Lower Extremity Ultrasound 07/05/16 Signed Impressions: Service Date/Time: June 12:08 - CONCLUSION: Normal examination. Issac Mead MD Head CT 07/05/16 Signed Impressions: Service Date/Time: June 08:56 - CONCLUSION: 1. Remote lacunar infarct left basal ganglia. Chronic white matter ischemic changes. No acute finding compared with December 2015. Silvio Ochoa MD Chest X-Ray 07/05/16 Signed Impressions: Service Date/Time: June 08:38 - CONCLUSION: Endotracheal tube in appropriate position with tip measuring 4 cm from the ivonne. Otherwise , no acute cardiopulmonary abnormality is identified. Issac Shipman MD Brain MRI 07/05/16 Signed Impressions: Service Date/Time: June 15:14 - CONCLUSION: 1. No acute findings. Chronic white matter ischemic changes. No recent infarct. Basal ganglia calcifications. Silvio Ochoa MD Hospital Course This is an 80-year-old elderly white female with past medical history of TIA, hypertension, hyperlipidemia, dementia, DVT of right lower extremity diagnosed in December 2015. Patient brought into the emergency room on 07/05/2016 for altered mental status. Apparently patient was found unresponsive around 7:30 in the morning and 911 was called. Patient was found with a Kathi coma scale score 05. On route, the patient was intubated and put on mechanical ventilation. A CT of the brain was obtained which showed a remote infarct left basal ganglia and chronic white matter ischemic changes. There were no acute findings noted. Laboratory workup showed leukocytosis with WBC of 14.2 with acute kidney injury with creatinine level of 1.88. Lactic acid was 1.3. Chest x-ray postintubation showed no acute card of pulmonary abnormalities and appropriate placement of ET tube. She was given fluid resuscitation and started on empiric antibiotics. She was put on sodium bicarbonate. She was noted hypertensive with blood pressure of 211/99 and require Cardene drip. Patient was admitted to intensive the services. Neurology and nephrology were consulted. MRI of the brain was completed which did not show any acute findings. EEG was done that showed encephalopathy. Renal function started to improve on IV fluids. She was extubated on 07/09/2016 and was put on oxygen at 2 L and tolerating well. Leukocytosis is improving, most recent WBC 13.9. Cultures are negative. Patient is still encephalopathic, she's awake and is following simple commands. She is oriented to self and . Has since at bedside and indicates that since December patient has been declining and is mostly on a wheelchair and requires assistance with ADLs. Prior to this admission he had already been talking to nursing homes for long-term care. He was requesting that patient remain a full code with aggressive care and would like the patient to go to a fci when discharged. Indicated that he can no longer handle her care at home as she required 24-hour care. Hospitalist services were requested for medical management. (1) Acute respiratory failure Plan: resolved (2) Metabolic encephalopathy (3) HTN (hypertension) (4) Acute renal failure (5) Dementia (6) Type 2 diabetes mellitus (7) Hyperlipidemia (8) Physical deconditioning (9) Hx of deep venous thrombosis During the course of the hospitalization, the following took place: 80-year-old female found unresponsive, etiology unclear as to altered mental status, no evidence of stroke. Was in respiratory distress and required intubation. Extubated 07/08/2016. No respiratory distress noted, stable Respiratory failure, extubated. Stabilized. -Continued with oxygen to keep sats greater on 2 L -Continued DuoNeb's when necessary Leukocytosis, unclear as to the source of infection. Continued with empiric antibiotics, was stopped. Tolerated well. -cultures remained negative Monitored WBC, was normal. No fever Acute renal injury, improved. Renal ultrasound negative Hydrated Avoided nephrotoxic agents -renal function markedly improved Encephalopathy, history of dementia. Patient found unresponsive. No clear etiology as to why patient was unresponsive. Negative for acute stroke. Underlying Dementia -Continue to monitor neuro status -EEG done -Neurology following, Dr. Taylor's input was appreciated. -put on Sinemet, did not respond. Started on Ritalin, Namenda added. Some improvement, cleared by neurology History right leg DVT, diagnosed December 2015. Had been on Eliquis. Currently on heparin 5000 units subcutaneous twice a day due to renal dysfunction -did not need any anticoagulation, was on Eliquis for 6 months. Type 2 diabetes Accu-Cheks before meals and at bedtime with insulin therapy Hypertension, initially uncontrolled required Cardene. BP stable Hx afib -Continued Cardizem -BP elevated at times, added Clonidine PRN Hyperlipidemia -continued Lipitor Pressure ulcer -appreciate skin care input -specialty mattress ordered -wound care daily Advanced directives and end-of-life care discussed with the patient's , requested full code. PT/OT ordered [facility]imm dc'd CM for dc planning, SNF Pt. stable for dc Discharged to SNF with instructions to: F/U neurology, PCP Diet-heart healthy Activity -as tolerated Pt Condition on Discharge: Stable Discharge Disposition: Discharge to SNF Discharge Instructions DIET: Follow Instructions for: Heart Healthy Diet Speech Therapy-Diet Recommends: Pureed Activities you can perform: Weight Bearing as Luke Follow up Referrals: Neurology with Les Taylor MD SNF/MIGUEL/HH with [facility] New Medications: Memantine (Namenda) 5 Mg Tab 5 MG PO DAILY MEMORY DEFICIT #7 TAB Memantine (Namenda) 5 Mg Tab 5 MG PO BID START IN ONE WEEK MEMORY DEFICIT #60 TAB Continued Medications: Atorvastatin (Atorvastatin) 40 Mg Tab 40 MG PO HS Cholesterol Management #30 Ref 0 TAB Cholecalciferol (D3) 1,000 Unit Cap Diltiazem CD 24 HR (Cardizem CD 24 HR) 240 Mg Caper 240 MG PO DAILY afib Days 30 CAP Furosemide (Furosemide) 20 Mg Tab 20 MG PO DAILY fluid Days 30 TAB Hydralazine (Hydralazine) 50 Mg Tab 50 MG PO Q6H Blood Pressure Management Days 30 TAB Insulin Aspart Inj (Novolog Inj) 100 Unit/Ml Inj 1 UNITS SQ ACHS SLIDING SCALE Blood Sugar Management Days 30 INJECTION Losartan (Losartan) 100 Mg Tab 100 MG PO DAILY Blood Pressure Management #30 Ref 0 TAB Potassium Chloride ER (Klor-Con 10) 10 Meq Tab 10 MEQ PO DAILY Electrolyte Replacement #30 Ref 0 TAB Discontinued Medications: Apixaban (Eliquis) 5 Mg Tab 10 MG PO BID blood thinner Days 30 TAB Sharon Mays Jul 13, 2016 15:54 Sharon Mays Jul 13, 2016 15:54
[2016-07-13] MEDS ORDERED: METHY5 PO (16:15)
[2016-07-13 23:51] LABS: VITAMIN B6 LESS THAN 2.0 ng/mL (2.1-21.7)
[2016-07-19] MEDS ORDERED: MEMANTINE HCL 5 MG TAB PO SCH (09:00)
== END 2016-07-13 17:46 | DRG 208 ==
LOC: NEPE 08:17 → NEDA 09:47 → HIME 12:40 → N04A 07-10 13:15
PROVIDERS: ADMIT Internal Medicine; ATTEND Internal Medicine
PROC: 5A1945Z Respiratory Ventilation, 24-96 Consecutive Hours (ICD-10-PCS; principal; 2016-07-05)
PROC: 0BH17EZ Insertion of Endotracheal Airway into Trachea, Via Natural or Artificial Opening (ICD-10-PCS; 2016-07-05)
DX: J96.00 Acute respiratory failure, unspecified whether with hypoxia or hypercapnia (principal); G93.41 Metabolic encephalopathy; N17.9 Acute kidney failure, unspecified; E11.65 Type 2 diabetes mellitus with hyperglycemia; I16.0 Hypertensive urgency; E78.5 Hyperlipidemia, unspecified; N18.3 Chronic kidney disease, stage 3 (moderate); I12.9 Hypertensive chronic kidney disease with stage 1 through stage 4 chronic kidney disease, or unspecified chronic kidney disease; I48.91 Unspecified atrial fibrillation; N28.1 Cyst of kidney, acquired; E11.22 Type 2 diabetes mellitus with diabetic chronic kidney disease; E87.6 Hypokalemia; D64.9 Anemia, unspecified; L89.90 Pressure ulcer of unspecified site, unspecified stage; F03.90 Unspecified dementia, unspecified severity, without behavioral disturbance, psychotic disturbance, mood disturbance, and anxiety; Z79.01 Long term (current) use of anticoagulants; Z79.4 Long term (current) use of insulin; Z86.718 Personal history of other venous thrombosis and embolism; Z86.73 Personal history of transient ischemic attack (TIA), and cerebral infarction without residual deficits; Z96.653 Presence of artificial knee joint, bilateral
CPT/HCPCS: 31500; 36600; 70450; 70551; 71010; 76775; 76937; 80048; 80053; 81001; 82550; 82805; 82948; 83519; 83605; 83735; 83880; 83921; 84100; 84132; 84207; 84425; 84443; 84484; 85007; 85025; 85027; 85610; 85730; 86255; 86850; 86900; 86901; 87040; 87086; 87493; 87641; 93005; 93970; 94002; 94003; 94640; 94664; 95819; 96365; C9113; J0330; J0360; J1644; J2543; J3370; J3480; J7030; J7050

== ENCOUNTER 2018-02-22 15:58 | Inpatient (IN) ==
[2018-02-22 16:28] LABS: Baso # (Auto) 0.1 th/mm3 (0.0-0.2); Baso % (Auto) 0.9 % (0.0-2.0); Eos # (Auto) 0.6 th/mm3 (0.0-0.4); Eos % (Auto) 7.6 % (0.0-4.0); Hematocrit 34.4 % (35.0-46.0); Hemoglobin 11.3 gm/dL (11.6-15.3); Lymph # (Auto) 0.9 th/mm3 (1.0-4.8); Lymph % (Auto) 11.6 % (9.0-44.0); Mean Corpuscular HGB Conc 32.7 % (32.0-36.0); Mean Corpuscular Hemoglobin 34.8 pg (27.0-34.0); Mean Corpuscular Volume 106.3 fL (80.0-100.0); Mean Platelet Volume 8.8 fL (7.0-11.0); Mono # (Auto) 0.6 th/mm3 (0.0-0.9); Mono % (Auto) 7.6 % (0.0-8.0); Neut # (Auto) 5.5 th/mm3 (1.8-7.7); Neut % (Auto) 72.3 % (16.0-70.0); Platelet Count 195 th/mm3 (150-450); Red Blood Count 3.24 mil/mm3 (4.00-5.30); Red Cell Distribution Width 17.3 % (11.6-17.2); White Blood Count 7.6 th/mm3 (4.0-11.0)
[2018-02-22 16:31] LABS: Bacteria,Urine Rare /hpf; Bilirubin,Urine Negative (Negative); Clarity,Urine Cloudy (Clear); Color,Urine Yellow (Yellw/Straw); Glucose,Urine (UA) Negative (Negative); Leukocyte Esterase,Urine Large (Negative); Nitrite,Urine Positive (Negative); Renal Epithelial Cells,Urine 5 /hpf; Specific Gravity,Urine 1.008 (1.002-1.035)
--- NOTE | 2018-02-22 16:49 | XR ---
EXAM DATE: 02/22/2018 4:28 PM EST AGE/SEX: 82 years / Female INDICATIONS: Congestion. CLINICAL DATA: This is the patient's initial encounter. Patient reports that signs and symptoms have been present for 1 day and indicates a pain score of Nonresponsive. MEDICAL/SURGICAL HISTORY: . Hypercholesterolemia. Hypertension. Osteoporosis. CVA. Renal diseas e. Diabetes. . Hysterectomy. Bilateral cataract. Bilateral knee replacements. COMPARISON: [facility] – [place], CHEST SINGLE AP, 07/05/2016. . FINDINGS: A single AP view of the chest demonstrates the lungs to be symmetrically hypoinflated with some mild atelectatic changes above the left hemidiaphragm. There is some minimal interstitial prominence which could represent some degree of vascular congestion or volume overload. No miguel failure, however. He art size is upper limits of normal. Osseous structures are intact. CONCLUSION: 1. Hypoinflation with minimal atelectatic changes above the left hemidiaphragm. 2. There is some minimal interstitial prominence which may be partially due to the low lung volumes although some degree of vascular congestion/volume overload cannot be excluded. No miguel failure. Electronically signed by: Darren Lind MD Board Certified Radiologist 02/22/2018 4:48 PM EST
[2018-02-22 16:57] LABS: Alanine Aminotransferase 26 U/L (10-53); Albumin 4.1 g/dL (3.4-5.0); Alkaline Phosphatase 118 U/L (45-117); Anion Gap 7 meq/L (5-15); Aspartate Aminotransferase 27 U/L (15-37); Blood Urea Nitrogen 42 mg/dL (7-18); Calcium 9.1 mg/dL (8.5-10.1); Carbon Dioxide 21.9 meq/L (21.0-32.0); Chloride 115 meq/L (98-107); Creatine Kinase 102 U/L (26-192); Glomerular Filtration Rate 20 mL/min (>89); Glucose,Random 128 mg/dL (74-106); Magnesium 2.5 mg/dL (1.5-2.5); Potassium 5.7 meq/L (3.5-5.1); Sodium 144 meq/L (136-145); Total Protein 7.7 g/dL (6.4-8.2)
[2018-02-22] MEDS ORDERED: Dextrose 50% in Water 50 ML Vial IV.PUSH ONE (17:12)
[2018-02-22] MEDS ORDERED: Calcium Chloride Inj 1 GM in Sodium Chlor 0.9% Inj 100 ML IV.SIG ONE (17:12)
[2018-02-22] MEDS ORDERED: Sod Chloride 0.9% Inj 1,000 ML IV.SIG SCH (17:15)
[2018-02-22 17:16] LABS: Activated Partial Thrombo Time 26.8 sec (23.4-31.7); Prothrombin Time 10.2 sec (9.8-11.6)
--- NOTE | 2018-02-22 18:05 | ED ---
HPI General Chief Complaint: Altered Mental Status Stated Complaint: Poss Confusion Time Seen by Provider: 02/22/18 16:07 Source: patient, family and EMS Mode of arrival: EMS History of Present Illness HPI narrative: 82-year-old female who presents to the ED for evaluation of lethargy and altered mental status. Per EVAC report apparently she was last seen normal around 11:00 last night. No signs of trauma per EVAC. Per EVAC she is been more lethargic which is abnormal for her. Apparently she was normal yesterday but not today. No neurological deficits. Per EVAC she is a poor historian Per record she does have a history of dementia. Family at bedside states that they noticed this since yesterday. Patient has no eating or drinking much today. Patient does not really have any complaints other than feeling chills and cold. She denies any pain anywhere. She is able to provide some history but she does appear to be demented and cannot answer everything appropriately. No evidence of diarrhea. Per no sign of fall or injury. Related Data Home Medications Medication Instructions Recorded Confirmed allopurinol 100 mg PO DAILY 02/22/18 02/22/18 ascorbic acid (vitamin C) [Vitamin 500 mg PO BID 02/22/18 02/22/18 C] atorvastatin 40 mg PO QPM 02/22/18 02/22/18 bisacodyl [Dulcolax (bisacodyl)] 10 mg RI DAILY PRN 02/22/18 02/22/18 cetirizine 10 mg PO DAILY 02/22/18 02/22/18 cholecalciferol (vitamin D3) 1,000 unit PO DAILY 02/22/18 02/22/18 [Vitamin D3] diltiazem HCl 240 mg PO DAILY 02/22/18 02/22/18 ferrous sulfate 325 mg PO TID 02/22/18 02/22/18 furosemide 20 mg PO DAILY 02/22/18 02/22/18 hydralazine 50 mg PO QID 02/22/18 02/22/18 insulin aspart U-100 [Novolog 1 sliding scale dose SUBCUT UD 02/22/18 02/22/18 U-100 Insulin aspart] losartan 100 mg PO DAILY 02/22/18 02/22/18 memantine [Namenda] 5 mg PO BID 02/22/18 02/22/18 [id number] acid 1 tab PO DAILY 02/22/18 02/22/18 [Centrum] potassium chloride 10 meq PO DAILY 02/22/18 02/22/18 sertraline 25 mg PO DAILY 02/22/18 02/22/18 Allergies Allergy/AdvReac Type Severity Reaction Status Date / Time No Known Allergies Allergy Verified 02/22/18 16:22 Review of Systems ROS: all other systems reviewed are negative [facility] Medical History Medical History Anemia (Acute) Dementia (Acute) Depression (Acute) Diabetes (Acute) Heart failure (Acute) Hyperlipidemia (Acute) Hypertension (Acute) Metabolic encephalopathy (Acute) Muscle weakness (Acute) Respiratory failure (Acute) Surgical history unknown (Acute) Social History Social History Substance History: Unable to Obtain Smoking Status: Unknown if ever smoked How Often Do You Have a Drink Containing Alcohol: Unable to Obtain Recent Travel in [facility] within the Last 8 Weeks: No Recent Out of Country Travel within the Last 8 Weeks: No Immunization History Tetanus Immunization: Unable to Assess Exam Narrative Exam Narrative: GENERAL: Well-appearing in no distress SKIN: Focused skin assessment warm/dry. HEAD: Atraumatic. Normocephalic. EYES: Pupils equal and round. No scleral icterus. No injection or drainage. ENT: No nasal bleeding or discharge. Mucous membranes pink and moist. Tongue is midline. NO Uvula deviation. NECK: Trachea midline. No JVD. CARDIOVASCULAR: Regular rate and rhythm. No murmur appreciated. RESPIRATORY: No accessory muscle use. Clear to auscultation. Breath sounds equal bilaterally. GASTROINTESTINAL: Abdomen soft, non-tender, nondistended. Hepatic and splenic margins not palpable. MUSCULOSKELETAL: No obvious deformities. No clubbing. No cyanosis. No edema. Full range of motion of the upper and lower extremities bilaterally. 2+ pulses bilaterally. NEUROLOGICAL: Awake and alert. No obvious cranial nerve deficits. Motor grossly within normal limits. Normal speech. PSYCHIATRIC: Altered mood and affect; insight and judgment normal. Course Initial Documented Vital Signs Temperature 97.7 F 02/22/18 16:07 Pulse Rate 62 02/22/18 16:07 Respiratory Rate 20 02/22/18 16:07 Blood Pressure 207/87 H 02/22/18 16:07 Pulse Oximetry 100 01/12/19 16:07 Last Documented Vital Signs Temperature 97.7 F 02/22/18 16:07 Pulse Rate 64 02/22/18 19:30 Respiratory Rate 20 02/22/18 19:30 Blood Pressure 200/91 H 02/22/18 19:30 Pulse Oximetry 100 02/22/18 19:30 Medical Decision Making MDM Narrative Medical decision making narrative: 82-year-old female who presents to the ED for evaluation of altered mental status. Patient was properly examined and was found to have signs and symptoms of unclear etiology. I suspect that this may be infectious. Labs and imaging were ordered. Labs and imaging did show what appears to be UTI what appears to be acute kidney injury. Patient given IV fluids and ceftriaxone. Case discussed with my attending who agrees with need for admission. Patient will be admitted for this. Case discussed with the residents for admission to their service. Medical Screen Exam Complete: Yes Emergency Medical Condition: Yes Differential Diagnosis Differential Diagnosis: UTI versus sepsis versus altered mental status versus electrolyte normality versus kidney failure versus CVA Medical Records Medical records reviewed: Yes I reviewed the patient's medical records. Lab Data Lab results reviewed: Yes I reviewed the patient's lab results. Result diagrams: 02/22/18 16:17 02/22/18 16:17 Lab Results 02/22/18 02/22/18 02/22/18 Range/Units 16:17 16:17 16:20 WBC 7.6 (4.0-11.0) th/mm3 RBC 3.24 L (4.00-5.30) mil/mm3 Hgb 11.3 L (11.6-15.3) gm/dL Hct 34.4 L (35.0-46.0) % MCV 106.3 H (80.0-100.0) fL MCH 34.8 H (27.0-34.0) pg MCHC 32.7 (32.0-36.0) % RDW 17.3 H (11.6-17.2) % Plt Count 195 (150-450) th/mm3 MPV 8.8 (7.0-11.0) fL Neut % (Auto) 72.3 H (16.0-70.0) % Lymph % (Auto) 11.6 (9.0-44.0) % [place] % (Auto) 7.6 (0.0-8.0) % Eos % (Auto) 7.6 H (0.0-4.0) % Baso % (Auto) 0.9 (0.0-2.0) % Neut # (Auto) 5.5 (1.8-7.7) th/mm3 Lymph # (Auto) 0.9 L (1.0-4.8) th/mm3 [place] # (Auto) 0.6 (0.0-0.9) th/mm3 Eos # (Auto) 0.6 H (0.0-0.4) th/mm3 Baso # (Auto) 0.1 (0.0-0.2) th/mm3 WBC Differential . Differential Comment Auto diff final PT (9.8-11.6) sec INR Ratio APTT (23.4-31.7) sec Sodium 144 (136-145) meq/L Potassium 5.7 H (3.5-5.1) meq/L Chloride 115 H (98-107) meq/L Carbon Dioxide 21.9 (21.0-32.0) meq/L Anion Gap 7 (5-15) meq/L BUN 42 H (7-18) mg/dL Creatinine 2.32 H (0.50-1.00) mg/dL Estimated GFR 20 L (>89) mL/min Random Glucose 128 H (74-106) mg/dL Lactic Acid (0.4-2.0) mmol/L Calcium 9.1 (8.5-10.1) mg/dL Magnesium 2.5 (1.5-2.5) mg/dL Total Bilirubin 0.3 (0.2-1.0) mg/dL AST 27 (15-37) U/L ALT 26 (10-53) U/L Alkaline Phosphatase 118 H (45-117) U/L Ammonia (11-32) mcmol/L Total Creatine Kinase 102 (26-192) U/L Troponin I Less than 0.02 L (0.02-0.05) ng/mL Total Protein 7.7 (6.4-8.2) g/dL Albumin 4.1 (3.4-5.0) g/dL TSH 2.320 (0.358-3.740) uIU/mL Urine Color Yellow (Yellw/Straw) Urine Clarity Cloudy H (Clear) Urine pH 7.0 (5.0-8.5) Ur Specific [place] 1.008 (1.002-1.035) Urine Protein 30 H (Neg-Trace) mg/dL Urine Glucose (UA) Negative (Negative) mg/dL Urine Ketones Negative (Negative) mg/dL Urine Occult Blood Negative (Negative) Urine Nitrate Positive H (Negative) Urine Bilirubin Negative (Negative) Urine Urobilinogen Less than 2 (Less than 2) mg/dL Ur Leukocyte Esterase Large H (Negative) Urine RBC Less than 1 (0-3) /hpf Urine WBC (0-5) /hpf Ur Renal Epithelial Cell 5 (None) /hpf Urine Bacteria Rare H (None) /hpf Micro UA Comment Cath-culture ind Ur Microscopic Review Not Reportable Urine Culture Comments Cath-cult indicated 02/22/18 02/22/18 02/22/18 Range/Units 16:44 16:44 16:44 WBC (4.0-11.0) th/mm3 RBC (4.00-5.30) mil/mm3 Hgb (11.6-15.3) gm/dL Hct (35.0-46.0) % MCV (80.0-100.0) fL MCH (27.0-34.0) pg MCHC (32.0-36.0) % RDW (11.6-17.2) % Plt Count (150-450) th/mm3 MPV (7.0-11.0) fL Neut % (Auto) (16.0-70.0) % Lymph % (Auto) (9.0-44.0) % [place] % (Auto) (0.0-8.0) % Eos % (Auto) (0.0-4.0) % Baso % (Auto) (0.0-2.0) % Neut # (Auto) (1.8-7.7) th/mm3 Lymph # (Auto) (1.0-4.8) th/mm3 [place] # (Auto) (0.0-0.9) th/mm3 Eos # (Auto) (0.0-0.4) th/mm3 Baso # (Auto) (0.0-0.2) th/mm3 WBC Differential Differential Comment PT 10.2 (9.8-11.6) sec INR 1.0 Ratio APTT 26.8 (23.4-31.7) sec Sodium (136-145) meq/L Potassium (3.5-5.1) meq/L Chloride (98-107) meq/L Carbon Dioxide (21.0-32.0) meq/L Anion Gap (5-15) meq/L BUN (7-18) mg/dL Creatinine (0.50-1.00) mg/dL Estimated GFR (>89) mL/min Random Glucose (74-106) mg/dL Lactic Acid 1.2 (0.4-2.0) mmol/L Calcium (8.5-10.1) mg/dL Magnesium (1.5-2.5) mg/dL Total Bilirubin (0.2-1.0) mg/dL AST (15-37) U/L ALT (10-53) U/L Alkaline Phosphatase (45-117) U/L Ammonia 13 (11-32) mcmol/L Total Creatine Kinase (26-192) U/L Troponin I (0.02-0.05) ng/mL Total Protein (6.4-8.2) g/dL Albumin (3.4-5.0) g/dL TSH (0.358-3.740) uIU/mL Urine Color (Yellw/Straw) Urine Clarity (Clear) Urine pH (5.0-8.5) Ur Specific [place] (1.002-1.035) Urine Protein (Neg-Trace) mg/dL Urine Glucose (UA) (Negative) mg/dL Urine Ketones (Negative) mg/dL Urine Occult Blood (Negative) Urine Nitrate (Negative) Urine Bilirubin (Negative) Urine Urobilinogen (Less than 2) mg/dL Ur Leukocyte Esterase (Negative) Urine RBC (0-3) /hpf Urine WBC (0-5) /hpf Ur Renal Epithelial Cell (None) /hpf Urine Bacteria (None) /hpf Micro UA Comment Ur Microscopic Review Urine Culture Comments Imaging Data Attestation: I personally reviewed and interpreted this imaging study as follows : Radiologist's impression: Chest X-Ray 02/22/18 16:08 CONCLUSION: 1. Hypoinflation with minimal atelectatic changes above the left hemidiaphragm. 2. There is some minimal interstitial prominence which may be partially due to the low lung volumes although some degree of vascular congestion/volume overload cannot be excluded. No miguel failure. Head CT 02/22/18 16:08 CONCLUSION: 1. 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 2. 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 3. Nothing acute to explain current clinical symptoms. . ECG Data Attestation: I personally reviewed and interpreted this ECG as follows: Interpretation: EKG shows sinus rhythm with no sign of acute ischemia or arrhythmia. Ventricular rate of 62 bpm, RI interval 173 ms. Read by me and attending. Discharge Plan Discharge Disposition Patient Disposition: ED Admit(ED Internal Use Only) Discharge Order Discharge Orders: ED Use Only Admit Order (Routine); Ordered 02/22/18 Ordered By: Melo Maher Discharge Details Diagnosis: Altered mental status, Acute UTI, GIULIA (acute kidney injury) Physicians Team ED Provider: Sam Adair ED Midlevel Provider: Melo Maher Primary Care Provider: Woody Becker V Attending Provider: Ag Valentin Discharge Interventions Interventions: Vital Signs Last Done: 02/22/18 17:50 Status ED Status: Admitted Observation Patient
[2018-02-22] MEDS ORDERED: hydrALAZINE 25 MG Tablet PO ONE (18:12)
--- NOTE | 2018-02-22 18:44 | CT ---
EXAM DATE: 02/22/2018 6:40 PM EST AGE/SEX: 82 years / Female INDICATIONS: Altered mental status. CLINICAL DATA: This is the patient's initial encounter. Patient reports that signs and symptoms have been present for 1 day and indicates a pain score of Nonresponsive. MEDICAL/SURGICAL HISTORY: Non-responsive. Non-responsive. RADIATION DOSE: 49.34 CTDI (mGy) COMPARISON: [facility] [place] BRA[place] W/O CONTRAST, 07/05/2016. . TECHNIQUE: CT of the head without contrast. Using automated exposure control and adjustment of the mA and/or kV according to patient size, radiation dose was kept as low as reasonably achievable to ob tain optimal diagnostic quality images. DICOM format image data is available electronically for revi ew and comparison. FINDINGS: Cerebrum: Mild, symmetric and bilateral cortical and central atrophy. Old lacunar type infarct in th e left basal ganglia extending up into the centrum semiovale ovale. Periventricular areas of diminish ed attenuation are characteristic of moderately severe small vessel ischemic demyelination.. No evid ence of midline shift, mass lesion, hemorrhage or acute infarction. No extraaxial fluid collections are seen. Posterior Fossa: The cerebellum and brainstem are intact. The 4th ventricle is midline. The cerebe llopontine angle is unremarkable. Extracranial: The visualized portion of the orbits is intact. Skull: The calvaria is intact. No evidence of skull fracture. CONCLUSION: 1. Chronic changes with symmetric cortical and central atrophy as well as moderately severe perivent ricular small vessel ischemic demyelination. 2. 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 3. Nothing acute to explain current clinical symptoms. . Electronically signed by: Darren Lind MD Board Certified Radiologist 02/22/2018 6:43 PM EST
[2018-02-22] MEDS ORDERED: Acetaminophen 325 MG Tablet PO PRN (19:21)
--- NOTE | 2018-02-22 19:28 | P.HPFP ---
History of Present Illness Primary Care Physician: Woody Becker MD <Ag Valentin Mary - 02/23/18 19:17> Woody Becker MD <Ag Howard - 02/22/18 19:28> History of Present Illness: Patient is an 82-year-old female with past history of dementia, depression, diabetes, heart failure, hyperlipidemia, hypertension who presented to the ED for lethargy and altered mental status. Patient is a poor historian. Per the EMR and ER PA the patient's family noticed that they noticed altered mental status since yesterday and the patient has not been eating or drinking much today. The patient currently states that she feels that she is "fuzzy"possibly confused at this time. She denies nausea, vomiting, fever, chills, chest pain, left arm or jaw pain, lightheadedness, dizziness, changes in vision, headache, abdominal pain, diarrhea, constipation, dysuria, change in urine color or smell. Patient does note she has increased frequency of urination. No other complaints at this time. Per Patient: PMH: denies Surgical: none Family denies family history Social history: Denies alcohol, tobacco and illicit drugs Per EMR: Anemia (Acute) Dementia (Acute) Depression (Acute) Diabetes (Acute) Heart failure (Acute) Hyperlipidemia (Acute) Hypertension (Acute) Metabolic encephalopathy (Acute) Muscle weakness (Acute) Respiratory failure (Acute) Surgical history unknown (Acute) <Ag Howard - 02/23/18 00:29> - Diagnosis (1) Altered mental status (2) Acute UTI (3) GIULIA (acute kidney injury) (4) Anemia (5) Depression (6) Diabetes (7) HTN (hypertension) (8) HLD (hyperlipidemia) (9) Nutrition, metabolism, and development symptoms <HomeroAg Mary 02/23/18 19:17> (1) Hypertensive urgency (2) Acute UTI (3) GIULIA (acute kidney injury) (4) Altered mental status (5) Anemia (6) Depression (7) Diabetes (8) HTN (hypertension) (9) HLD (hyperlipidemia) (10) Nutrition, metabolism, and development symptoms <Remydanna Ag Urban 02/23/18 00:30> Inpatient Certification: I certify that the inpatient services were ordered in accordance with Medicare regulations governing the order. This includes certification that hospital inpatient services are reasonable and necessary and in the case of services not specified as inpatient-only under 42 CFR 419.22(n), that they are appropriately provided as inpatient services in accordance to with the 2-midnight benchmark under 43 CFR 412.3(e) <Ag Valentin 02/23/18 19:17> Review of Systems All other systems reviewed negative except as stated in HPI <Remydanna Urban Ag Aldrich 02/23/18 00:29> PMFSH - History History Provided By: Medical Record <Remydanna UrbanAg Aldrich 02/22/18 19:28> - Medical History Medical History: Medical History (Last Reviewed 02/22/18 @ 18:02 by REILLY Bains) Anemia Dementia Depression Diabetes Heart failure Hyperlipidemia Hypertension Metabolic encephalopathy Muscle weakness Respiratory failure Surgical history unknown <HomeroAg Hernandez 02/23/18 19:17> Medical History (Last Reviewed 02/22/18 @ 18:02 by REILLY Bains) Anemia Dementia Depression Diabetes Heart failure Hyperlipidemia Hypertension Metabolic encephalopathy Muscle weakness Respiratory failure Surgical history unknown <Remydanna UrbanAg Aldrich 02/22/18 19:28> - Tobacco History Smoking Status: Unknown if ever smoked <Remydanna UrbanAg Aldrich 02/22/18 19:28> - Alcohol History How Often Do You Have a Drink Containing Alcohol: Unable to Obtain <Remydanna Urban Ag Aldrich 02/22/18 19:28> - Substance Use History Substance History: Unable to Obtain <Remydanna UrbanAg Aldrich 02/22/18 19:28> - Travel History Recent Travel in the [facility] Within the Last 8 Weeks: No <Remydanna UrbanAg Aldrich 19:28> Recent Travel Out of the Country Within the Last 8 Weeks: No <Remydanna Rajni Ag Aldrich 02/22/18 19:28> - Immunization History Tetanus Immunization: Unable to Assess <Remydanna UrbanJoshua 02/22/18 19:28> Medications and Allergies Allergies Allergy/AdvReac Type Severity Reaction Status Date / Time No Known Allergies Allergy Verified 02/22/18 16:22 <Ag Valentin 02/23/18 19:17> Home Medications Medication Instructions Recorded Confirmed Type allopurinol 100 mg PO DAILY 02/22/18 02/22/18 History ascorbic acid (vitamin C) [Vitamin 500 mg PO BID 02/22/18 02/22/18 History C] atorvastatin 40 mg PO QPM 02/22/18 02/22/18 History bisacodyl [Dulcolax (bisacodyl)] 10 mg MT DAILY PRN 02/22/18 02/22/18 History cetirizine 10 mg PO DAILY 02/22/18 02/22/18 History cholecalciferol (vitamin D3) 1,000 unit PO DAILY 02/22/18 02/22/18 History [Vitamin D3] diltiazem HCl 240 mg PO DAILY 02/22/18 02/22/18 History ferrous sulfate 325 mg PO TID 02/22/18 02/22/18 History furosemide 20 mg PO DAILY 02/22/18 02/22/18 History hydralazine 50 mg PO QID 02/22/18 02/22/18 History insulin aspart U-100 [Novolog 1 sliding scale dose SUBCUT UD 02/22/18 02/22/18 History U-100 Insulin aspart] losartan 100 mg PO DAILY 02/22/18 02/22/18 History memantine [Namenda] 5 mg PO BID 02/22/18 02/22/18 History bykroyrerwjk-tlwz-fwbur acid 1 tab PO DAILY 02/22/18 02/22/18 History [Centrum] potassium chloride 10 meq PO DAILY 02/22/18 02/22/18 History sertraline 25 mg PO DAILY 02/22/18 02/22/18 History <HomeroAg L - 02/23/18 19:17> Active Medications: Active Medications Acetaminophen (Tylenol) 650 mg PO Q4H PRN PRN Reason: Temp > 100.4 Al Hydroxide/Mg Hydroxide (Milk Of Magnfrancesco Liq) 30 ml PO Q12H PRN PRN Reason: Mild Constipation Allopurinol (Zyloprim) 100 mg PO DAILY [facility] Last Admin: 02/23/18 18:32 Dose: 100 mg Ascorbic Acid (Vitamin C) 500 mg PO BID [facility] Last Admin: 02/23/18 09:00 Dose: Not Given Atorvastatin Calcium (Lipitor) 40 mg PO QPM [facility] Last Admin: 02/23/18 18:33 Dose: 40 mg Dextrose (D50w Vial) 50 ml IV.PUSH UNSCH PRN PRN Reason: PER HYPOGLYCEMIA PROTOCOL Diltiazem HCl (Cardizem Cd 24hr) 240 mg PO DAILY [facility] Last Admin: 02/23/18 18:31 Dose: 240 mg Enalaprilat (Vasotec Inj) 1.25 mg IV.PUSH Q6H PRN PRN Reason: SEE LABEL COMMENTS Enoxaparin Sodium (Lovenox Inj) 30 mg SQ Q24H [facility] Last Admin: 02/23/18 18:31 Dose: 30 mg Ferrous Sulfate (Ferosul) 325 mg PO TID [facility] Last Admin: 02/23/18 18:31 Dose: 325 mg Furosemide (Lasix) 20 mg PO DAILY [facility] Last Admin: 02/23/18 18:32 Dose: 20 mg Glucagon (Glucagon Inj) 1 mg OTHER PRN PRN PRN Reason: for Hypoglycemia Protocol Hydralazine HCl (Apresoline) 50 mg PO QID [facility] Last Admin: 02/23/18 18:32 Dose: 50 mg Ceftriaxone Sodium 1,000 mg/ (Sodium Chloride) 100 mls @ 200 mls/hr IV.SIG Q24H [facility] Last Admin: 02/23/18 18:33 Dose: 200 mls/hr Dextrose/Sodium Chloride (D5w/1/2 Ns Inj) 1,000 mls @ 100 mls/hr IV.CONT .Q10H [facility] Last Admin: 02/23/18 13:05 Dose: 100 mls/hr Insulin Aspart (Novolog Insulin Correctional Sugar Inj) 0 unit SQ ACHS [facility]; Protocol Last Admin: 02/23/18 18:32 Dose: 1 unit Losartan Potassium (Cozaar) 100 mg PO DAILY [facility] Last Admin: 02/23/18 18:31 Dose: 100 mg Memantine (Namenda) 5 mg PO BID [facility] Last Admin: 02/23/18 09:00 Dose: Not Given Ondansetron HCl (Zofran Inj) 4 mg IV.PUSH Q6H PRN PRN Reason: NAUSEA OR VOMITING Senna/Docusate Sodium (Mireille-Colace) 1 tab PO BID [facility] Last Admin: 02/23/18 10:06 Dose: Not Given Sennosides (Senokot) 17.2 mg PO Q12H PRN PRN Reason: Moderate Constipation Sertraline HCl (Zoloft) 25 mg PO DAILY [facility] Last Admin: 02/23/18 18:32 Dose: 25 mg Sodium Chloride (Ns Flush) 2 ml IV.FLUSH BID [facility] Last Admin: 02/23/18 09:00 Dose: Not Given Sodium Chloride (Ns Flush) 2 ml IV.FLUSH PRN PRN PRN Reason: FLUSH AFTER USING IV ACCESS <Ag Valentin - 02/23/18 19:17> Exam Vital signs: Vital Signs 02/22/18 19:30 02/22/18 21:30 02/22/18 21:51 Temperature 98.1 F Pulse Rate 64 78 71 Respiratory Rate 20 16 18 Blood Pressure 200/91 H 165/66 H 161/57 H Pulse Oximetry 100 100 02/22/18 23:24 02/22/18 23:29 02/23/18 00:00 Temperature 98.1 F Pulse Rate 69 66 Respiratory Rate 15 Blood Pressure 172/78 H Pulse Oximetry 95 99 02/23/18 04:00 02/23/18 08:00 02/23/18 09:27 Temperature 97.9 F 97.7 F Pulse Rate 58 L 57 L Respiratory Rate 16 18 Blood Pressure 141/65 H 161/75 H Pulse Oximetry 96 97 97 02/23/18 12:00 02/23/18 16:00 Temperature 98.1 F 98.5 F Pulse Rate 65 60 Respiratory Rate 18 18 Blood Pressure 173/70 H 167/74 H Pulse Oximetry 96 97 Intake & Output 02/23/18 02/23/18 02/24/18 06:59 18:59 06:59 Intake Total 1000 / 1000 Output Total 450 / 450 Balance -450 / -450 1000 / 1000 Weight 57.5 kg Intake: IV 1000 / 1000 LR 1000 mL Inj 1,000 ML @ 100 1000 / 1000 mls/hr IV.CONT .Q10H [facility] Rx#: [id number] Output: Urine 450 / 450 Other: # Incontinent Voids 2 Date of Last Bowel Movement 02/23/18 # Bowel Movements 800 Weight On Admission 57.5 kg <Ag Valentin - 02/23/18 19:17> Vital Signs 02/22/18 16:07 02/22/18 16:10 02/22/18 17:50 Temperature 97.7 F Pulse Rate 62 65 71 Respiratory Rate 20 17 Blood Pressure 207/87 H 208/86 H Pulse Oximetry 100 100 100 Intake & Output 02/22/18 02/22/18 02/23/18 06:59 18:59 06:59 Intake Total 1210 / 1210 Balance 121 / 1210 Weight 63.503 kg Intake: IV 121 / 1210 Calcium Chloride Inj 1 GM In NS 110 / 110 Inj 100 ML @ 110 mls/hr IV.SIG ONCE ONE Rx#:[id number] NS Inj 1,000 ML @ 1000 mls/hr 1000 / 1000 IV.SIG BOLUS NIDHI Rx#:[id number] Rocephin Inj 1,000 MG In NS Inj 100 / 100 100 ML @ 200 mls/hr IV.SIG ONCE ONE Rx#:[id number] <Ag Howard A - 02/22/18 19:28> Narrative: GENERAL: Laying in bed, no acute distress SKIN: Warm and dry. HEAD: Normocephalic. EYES: No scleral icterus. No injection or drainage. NECK: Supple, trachea midline. No JVD or lymphadenopathy. CARDIOVASCULAR: Regular rate and rhythm without gallops, or rubs. RESPIRATORY: Breath sounds equal bilaterally. No accessory muscle use. GASTROINTESTINAL: Abdomen soft, non-tender, nondistended. MUSCULOSKELETAL: No cyanosis, or edema. BACK: Nontender without obvious deformity. No CVA tenderness. <Ag Howard - 02/23/18 00:29> Results - Labs Result diagrams: 02/23/18 13:00 02/23/18 10:45 <Ag Valentin - 02/23/18 19:17> Abnormal lab results 02/22/18 02/23/18 02/23/18 Range/Units 16:20 08:16 10:45 RBC (4.00-5.30) mil/mm3 Hgb (11.6-15.3) gm/dL Hct (35.0-46.0) % MCV (80.0-100.0) fL MCH (27.0-34.0) pg Neut % (Auto) (16.0-70.0) % Eos % (Auto) (0.0-4.0) % Eos # (Auto) (0.0-0.4) th/mm3 Chloride 114 H (98-107) meq/L BUN 35 H (7-18) mg/dL Creatinine 1.90 H (0.50-1.00) mg/dL Estimated GFR 25 L (>89) mL/min POC Glucose 125 H (68-110) mg/dl Random Glucose 112 H (74-106) mg/dL Urine Clarity Cloudy H (Clear) Urine Protein 30 H (Neg-Trace) mg/dL Urine Nitrate Positive H (Negative) Ur Leukocyte Esterase Large H (Negative) Urine Bacteria Rare H (None) /hpf 02/23/18 02/23/18 02/23/18 Range/Units 13:00 17:58 18:00 RBC 2.83 L (4.00-5.30) mil/mm3 Hgb 9.7 L (11.6-15.3) gm/dL Hct 29.2 L (35.0-46.0) % MCV 103.4 H (80.0-100.0) fL MCH 34.3 H (27.0-34.0) pg Neut % (Auto) 73.5 H (16.0-70.0) % Eos % (Auto) 6.5 H (0.0-4.0) % Eos # (Auto) 0.5 H (0.0-0.4) th/mm3 Chloride (98-107) meq/L BUN (7-18) mg/dL Creatinine (0.50-1.00) mg/dL Estimated GFR (>89) mL/min POC Glucose Greater than 600 H* 155 H (68-110) mg/dl Random Glucose (74-106) mg/dL Urine Clarity (Clear) Urine Protein (Neg-Trace) mg/dL Urine Nitrate (Negative) Ur Leukocyte Esterase (Negative) Urine Bacteria (None) /hpf Short CBC 02/23/18 Range/Units 13:00 WBC 7.4 (4.0-11.0) th/mm3 Hgb 9.7 L (11.6-15.3) gm/dL Hct 29.2 L (35.0-46.0) % Plt Count 174 (150-450) th/mm3 BMP 02/23/18 10:45 Sodium 145 Potassium 4.0 D Chloride 114 H Carbon Dioxide 21.0 BUN 35 H Creatinine 1.90 H Calcium 9.1 Urine 02/22/18 Range/Units 16:20 Urine Color Yellow (Yellw/Straw) Urine Clarity Cloudy H (Clear) Urine pH 7.0 (5.0-8.5) Ur Specific [place] 1.008 (1.002-1.035) Urine Protein 30 H (Neg-Trace) mg/dL Urine Glucose (UA) Negative (Negative) mg/dL <Ag Valentin L - 02/23/18 19:17> Abnormal lab results 02/22/18 02/22/18 02/22/18 Range/Units 16:17 16:17 16:20 RBC 3.24 L (4.00-5.30) mil/mm3 Hgb 11.3 L (11.6-15.3) gm/dL Hct 34.4 L (35.0-46.0) % MCV 106.3 H (80.0-100.0) fL MCH 34.8 H (27.0-34.0) pg RDW 17.3 H (11.6-17.2) % Neut % (Auto) 72.3 H (16.0-70.0) % Eos % (Auto) 7.6 H (0.0-4.0) % Lymph # (Auto) 0.9 L (1.0-4.8) th/mm3 Eos # (Auto) 0.6 H (0.0-0.4) th/mm3 Potassium 5.7 H (3.5-5.1) meq/L Chloride 115 H (98-107) meq/L BUN 42 H (7-18) mg/dL Creatinine 2.32 H (0.50-1.00) mg/dL Estimated GFR 20 L (>89) mL/min Random Glucose 128 H (74-106) mg/dL Alkaline Phosphatase 118 H (45-117) U/L Troponin I Less than 0.02 L (0.02-0.05) ng/mL Urine Clarity Cloudy H (Clear) Urine Protein 30 H (Neg-Trace) mg/dL Urine Nitrate Positive H (Negative) Ur Leukocyte Esterase Large H (Negative) Urine Bacteria Rare H (None) /hpf Short CBC 02/22/18 Range/Units 16:17 WBC 7.6 (4.0-11.0) th/mm3 Hgb 11.3 L (11.6-15.3) gm/dL Hct 34.4 L (35.0-46.0) % Plt Count 195 (150-450) th/mm3 BMP 02/22/18 16:17 Sodium 144 Potassium 5.7 H Chloride 115 H Carbon Dioxide 21.9 BUN 42 H Creatinine 2.32 H Calcium 9.1 Cardiac Enzymes 02/22/18 Range/Units 16:17 Total Creatine Kinase 102 (26-192) U/L Troponin I Less than 0.02 L (0.02-0.05) ng/mL Liver Function 02/22/18 Range/Units 16:17 Total Bilirubin 0.3 (0.2-1.0) mg/dL AST 27 (15-37) U/L ALT 26 (10-53) U/L Alkaline Phosphatase 118 H (45-117) U/L Albumin 4.1 (3.4-5.0) g/dL Urine 02/22/18 Range/Units 16:20 Urine Color Yellow (Yellw/Straw) Urine Clarity Cloudy H (Clear) Urine pH 7.0 (5.0-8.5) Ur Specific [place] 1.008 (1.002-1.035) Urine Protein 30 H (Neg-Trace) mg/dL Urine Glucose (UA) Negative (Negative) mg/dL <Ag Howard 02/22/18 19:28> - Imaging Impressions Chest X-Ray 02/22/18 16:08 CONCLUSION: 1. Hypoinflation with minimal atelectatic changes above the left hemidiaphragm. 2. There is some minimal interstitial prominence which may be partially due to the low lung volumes although some degree of vascular congestion/volume overload cannot be excluded. No miguel failure. Head CT 02/22/18 16:08 CONCLUSION: 1. 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 2. 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 3. Nothing acute to explain current clinical symptoms. . <Ag Howard 02/22/18 19:28> Caprini VTE Risk Assessment Caprini VTE Risk Assessment: Moderate/High Risk (score >= 2) <Ag Howard 02/23/18 00:29> Caprini Risk Assessment Model: Point Value = 1 Point Value = 2 Point Value = 3 Point Value = 5 Age 41-60 Minor surgery BMI > 25 kg/m2 Swollen legs Varicose veins or History of unexplained or recurrent spontaneous Oral contraceptives or hormone replacement Sepsis (< 1 month) Serious lung disease, including pneumonia (< 1 month) Abnormal pulmonary function Acute myocardial infarction Congestive heart failure (< 1 month) History of inflammatory bowel disease Medical patient at bed rest Age 61-74 Arthroscopic surgery Major open surgery (> 45 min) Laparoscopic surgery (> 45 min) Malignancy Confined to bed (> 72 hours) Immobilizing plaster cast Central venous access Age >= 75 History of VTE Family history of VTE Factor V Leiden Prothrombin [id number] Lupus anticoagulant Anticardiolipin antibodies Elevated serum homocysteine Heparin-induced thrombocytopenia Other congenital or acquired thrombophilia Stroke (< 1 month) Elective arthroplasty Hip, pelvis, or leg fracture Acute spinal cord injury (< 1 month) <Ag Valentin - 02/23/18 19:17> Point Value = 1 Point Value = 2 Point Value = 3 Point Value = 5 Age 41-60 Minor surgery BMI > 25 kg/m2 Swollen legs Varicose veins or History of unexplained or recurrent spontaneous Oral contraceptives or hormone replacement Sepsis (< 1 month) Serious lung disease, including pneumonia (< 1 month) Abnormal pulmonary function Acute myocardial infarction Congestive heart failure (< 1 month) History of inflammatory bowel disease Medical patient at bed rest Age 61-74 Arthroscopic surgery Major open surgery (> 45 min) Laparoscopic surgery (> 45 min) Malignancy Confined to bed (> 72 hours) Immobilizing plaster cast Central venous access Age >= 75 History of VTE Family history of VTE Factor V Leiden Prothrombin [id number] Lupus anticoagulant Anticardiolipin antibodies Elevated serum homocysteine Heparin-induced thrombocytopenia Other congenital or acquired thrombophilia Stroke (< 1 month) Elective arthroplasty Hip, pelvis, or leg fracture Acute spinal cord injury (< 1 month) <Ag oHward - 02/22/18 19:28> Prophylaxis Regimen: Total Risk Factor Score Risk Level Prophylaxis Regimen 0-1 Low Early ambulation 2 Moderate Order ONE of the following: *Sequential Compression Device (SCD) *Heparin 5000 units SQ BID 3-4 Higher Order ONE of the following medications: *Heparin 5000 units SQ TID *Enoxaparin/Lovenox 40 mg SQ daily (WT < 150 kg, CrCl > 30 mL/min) *Enoxaparin/Lovenox 30 mg SQ daily (WT < 150 kg, CrCl > 10-29 mL/min) *Enoxaparin/Lovenox 30 mg SQ BID (WT < 150 kg, CrCl > 30 mL/min) AND/OR *Sequential Compression Device (SCD) 5 or more Highest Order ONE of the following medications: *Heparin 5000 units SQ TID (Preferred with Epidurals) *Enoxaparin/Lovenox 40 mg SQ daily (WT < 150 kg, CrCl > 30 mL/min) *Enoxaparin/Lovenox 30 mg SQ daily (WT < 150 kg, CrCl > 10-29 mL/min) *Enoxaparin/Lovenox 30 mg SQ BID (WT < 150 kg, CrCl > 30 mL/min) AND *Sequential Compression Device (SCD) <Ag Valentin - 02/23/18 19:17> Total Risk Factor Score Risk Level Prophylaxis Regimen 0-1 Low Early ambulation 2 Moderate Order ONE of the following: *Sequential Compression Device (SCD) *Heparin 5000 units SQ BID 3-4 Higher Order ONE of the following medications: *Heparin 5000 units SQ TID *Enoxaparin/Lovenox 40 mg SQ daily (WT < 150 kg, CrCl > 30 mL/min) *Enoxaparin/Lovenox 30 mg SQ daily (WT < 150 kg, CrCl > 10-29 mL/min) *Enoxaparin/Lovenox 30 mg SQ BID (WT < 150 kg, CrCl > 30 mL/min) AND/OR *Sequential Compression Device (SCD) 5 or more Highest Order ONE of the following medications: *Heparin 5000 units SQ TID (Preferred with Epidurals) *Enoxaparin/Lovenox 40 mg SQ daily (WT < 150 kg, CrCl > 30 mL/min) *Enoxaparin/Lovenox 30 mg SQ daily (WT < 150 kg, CrCl > 10-29 mL/min) *Enoxaparin/Lovenox 30 mg SQ BID (WT < 150 kg, CrCl > 30 mL/min) AND *Sequential Compression Device (SCD) <Ag Howard A - 02/22/18 19:28> Assessment and Plan - Assessment (1) Altered mental status Code(s): R41.82 - Altered mental status, unspecified Status: Acute (2) Acute UTI Code(s): N39.0 - Urinary tract infection, site not specified Status: Acute (3) GIULIA (acute kidney injury) Code(s): N17.9 - Acute kidney failure, unspecified Status: Acute (4) Anemia Code(s): D64.9 - Anemia, unspecified Status: Acute (5) Depression Code(s): F32.9 - Major depressive disorder, single episode, unspecified Status : Acute (6) Diabetes Code(s): E11.9 - Type 2 diabetes mellitus without complications Status: Acute (7) HTN (hypertension) Code(s): I10 - Essential (primary) hypertension Status: Acute (8) HLD (hyperlipidemia) Code(s): E78.5 - Hyperlipidemia, unspecified Status: Acute (9) Nutrition, metabolism, and development symptoms Code(s): R63.8 - Other symptoms and signs concerning food and fluid intake Status: Acute <Ag Valentin - 02/23/18 19:17> (1) Hypertensive urgency Code(s): I16.0 - Hypertensive urgency Status: Acute Plan: Patient found to have hypertensive urgency on admission. Initial blood pressure 207/87. Patient administered hydralazine in ED. -We will attempt to decrease blood pressure by no more than 25-35% within the first few hours. -We will attempt to be below 160/100 within 24 hours, below 140/90 after 24 hours -Continue home blood pressure medications as below -Vasotec 1.25 mg every 6 as needed for blood pressure greater than or equal to 160 systolic or greater than or equal to 100 diastolic (2) Acute UTI Code(s): N39.0 - Urinary tract infection, site not specified Status: Acute Plan: UA suggestive of acute UTI. Ceftriaxone in ED. -Follow-up urine culture -Ceftriaxone 1 g daily -Monitor for signs of pyelonephritis (3) GIULIA (acute kidney injury) Code(s): N17.9 - Acute kidney failure, unspecified Status: Acute Plan: Creatinine 2.32 on admission 1.15-1.28 in July 2016. -1 L NS bolus given in ED, continue IV rehydration, add p.o. rehydration after swallow eval (4) Altered mental status Code(s): R41.82 - Altered mental status, unspecified Status: Acute Plan: Altered mental status. Likely secondary to UTI. -See plan for UTI (5) Anemia Code(s): D64.9 - Anemia, unspecified Status: Acute Plan: History of anemia. -Continue home iron (6) Depression Code(s): F32.9 - Major depressive disorder, single episode, unspecified Status : Acute Plan: History of depression. -Continue home sertraline (7) Diabetes Code(s): E11.9 - Type 2 diabetes mellitus without complications Status: Acute Plan: History of diabetes. -Low-dose sliding scale insulin (8) HTN (hypertension) Code(s): I10 - Essential (primary) hypertension Status: Acute Plan: History of hypertension. -Continue home medications hydralazine, losartan, diltiazem (9) HLD (hyperlipidemia) Code(s): E78.5 - Hyperlipidemia, unspecified Status: Acute Plan: History of hyperlipidemia -Continue atorvastatin 40 mg (10) Nutrition, metabolism, and development symptoms Code(s): R63.8 - Other symptoms and signs concerning food and fluid intake Status: Acute Plan: Fluids: Maintenance fluids Electrolytes: Monitor and correct as needed Nutrition: Patient had difficulty swallowing applesauce while admitting, n.p.o. until speech path swallow eval <Ag Howard - 02/23/18 00:30> - Attending Attestation The exam, history, and the medical decision-making described in the above note were completed with the assistance of the resident physician. I reviewed and agree with the findings presented. I attest that I had a [id number] encounter with the patient on the following day, and personally performed and documented my assessment and findings in the medical record. Please see my documentation on the following day. <Ag Valentin - 02/23/18 19:17> <Ag Howard - Last Filed: 02/23/18 00:30> (4) Altered mental status Qualifiers: Altered mental status type: unspecified Qualified Code(s): R41.82 - Altered mental status, unspecified <Ag Valentin - Last Filed: 02/23/18 19:17> (1) Altered mental status Qualifiers: Altered mental status type: delirium Qualified Code(s): R41.0 - Disorientation, unspecified <Faille Ag Urban - Last Filed: 02/23/18 00:30> (4) Altered mental status Qualifiers: Altered mental status type: unspecified Qualified Code(s): R41.82 - Altered mental status, unspecified <Ag Valentin - Last Filed: 02/23/18 19:17> (1) Altered mental status Qualifiers: Altered mental status type: delirium Qualified Code(s): R41.0 - Disorientation, unspecified
[2018-02-22] MEDS: Senna/Docusate Sodium 8.6/50 MG Tablet PO SCH (23:29)
[2018-02-23] MEDS ORDERED: Dextrose 50% in Water 50 ML Vial IV.PUSH PRN (00:28)
[2018-02-23] MEDS: Insulin NovoLOG Aspart Correctional Sugar Inj SQ SCH ×4 (08:17→20:49)
[2018-02-23] MEDS: Ascorbic Acid 500 MG Tablet PO SCH ×2 (09:00→20:48)
[2018-02-23] MEDS: hydrALAZINE 50 MG Tablet PO SCH ×4 (10:05→20:48)
[2018-02-23] MEDS: Ferrous Sulfate 325 MG Tablet PO SCH ×3 (10:05→18:31)
[2018-02-23] MEDS: Senna/Docusate Sodium 8.6/50 MG Tablet PO SCH ×2 (10:06→20:48)
--- NOTE | 2018-02-23 11:32 | ECG ---
Date Performed: 02/22/2018 Time Performed: 16:14:23 PTAGE: 82 years EKG: Sinus rhythm MINIMAL ST DEPRESSION BORDERLINE ECG Since the PREVIOUS TRACING , no significant change noted PREVIOUS TRACIN07/05/2016 08.35.20 DOCTOR: Peng Tanner Interpretating Date/Time 02/23/2018 11:32:26
[2018-02-23 12:22] LABS: Calcium 9.1 mg/dL (8.5-10.1)
--- NOTE | 2018-02-23 12:50 | P.PNFP ---
Subjective Interval history: Patient seen with by bedside. reports she is much better compared to yesterday. However, she is not quite at her baseline. Patient reports no pain this morning. She does have frequent urination but no pain with urination. No flank tenderness. No fevers overnight. This morning, she is pleasant, and is oriented to person, place, and situation. At baseline, she gets around by wheelchair. She feels tired and somewhat weak compared to her usual self. No chest pain or shortness of breath. No abdominal pain, nausea, vomiting, diarrhea. reports no new medications or changes in medication. Results - Labs Result diagrams: 02/22/18 16:17 02/23/18 10:45 Abnormal lab results 02/22/18 02/22/18 02/22/18 Range/Units 16:17 16:17 16:20 RBC 3.24 L (4.00-5.30) mil/mm3 Hgb 11.3 L (11.6-15.3) gm/dL Hct 34.4 L (35.0-46.0) % MCV 106.3 H (80.0-100.0) fL MCH 34.8 H (27.0-34.0) pg RDW 17.3 H (11.6-17.2) % Neut % (Auto) 72.3 H (16.0-70.0) % Eos % (Auto) 7.6 H (0.0-4.0) % Lymph # (Auto) 0.9 L (1.0-4.8) th/mm3 Eos # (Auto) 0.6 H (0.0-0.4) th/mm3 Potassium 5.7 H (3.5-5.1) meq/L Chloride 115 H (98-107) meq/L BUN 42 H (7-18) mg/dL Creatinine 2.32 H (0.50-1.00) mg/dL Estimated GFR 20 L (>89) mL/min POC Glucose (68-110) mg/dl Random Glucose 128 H (74-106) mg/dL Alkaline Phosphatase 118 H (45-117) U/L Troponin I Less than 0.02 L (0.02-0.05) ng/mL Urine Clarity Cloudy H (Clear) Urine Protein 30 H (Neg-Trace) mg/dL Urine Nitrate Positive H (Negative) Ur Leukocyte Esterase Large H (Negative) Urine Bacteria Rare H (None) /hpf 02/23/18 02/23/18 Range/Units 08:16 10:45 RBC (4.00-5.30) mil/mm3 Hgb (11.6-15.3) gm/dL Hct (35.0-46.0) % MCV (80.0-100.0) fL MCH (27.0-34.0) pg RDW (11.6-17.2) % Neut % (Auto) (16.0-70.0) % Eos % (Auto) (0.0-4.0) % Lymph # (Auto) (1.0-4.8) th/mm3 Eos # (Auto) (0.0-0.4) th/mm3 Potassium (3.5-5.1) meq/L Chloride 114 H (98-107) meq/L BUN 35 H (7-18) mg/dL Creatinine 1.90 H (0.50-1.00) mg/dL Estimated GFR 25 L (>89) mL/min POC Glucose 125 H (68-110) mg/dl Random Glucose 112 H (74-106) mg/dL Alkaline Phosphatase (45-117) U/L Troponin I (0.02-0.05) ng/mL Urine Clarity (Clear) Urine Protein (Neg-Trace) mg/dL Urine Nitrate (Negative) Ur Leukocyte Esterase (Negative) Urine Bacteria (None) /hpf Short CBC 02/22/18 Range/Units 16:17 WBC 7.6 (4.0-11.0) th/mm3 Hgb 11.3 L (11.6-15.3) gm/dL Hct 34.4 L (35.0-46.0) % Plt Count 195 (150-450) th/mm3 BMP 02/22/18 02/23/18 16:17 10:45 Sodium 144 145 Potassium 5.7 H 4.0 D Chloride 115 H 114 H Carbon Dioxide 21.9 21.0 BUN 42 H 35 H Creatinine 2.32 H 1.90 H Calcium 9.1 9.1 Cardiac Enzymes 02/22/18 Range/Units 16:17 Total Creatine Kinase 102 (26-192) U/L Troponin I Less than 0.02 L (0.02-0.05) ng/mL Liver Function 02/22/18 Range/Units 16:17 Total Bilirubin 0.3 (0.2-1.0) mg/dL AST 27 (15-37) U/L ALT 26 (10-53) U/L Alkaline Phosphatase 118 H (45-117) U/L Albumin 4.1 (3.4-5.0) g/dL Urine 02/22/18 Range/Units 16:20 Urine Color Yellow (Yellw/Straw) Urine Clarity Cloudy H (Clear) Urine pH 7.0 (5.0-8.5) Ur Specific [place] 1.008 (1.002-1.035) Urine Protein 30 H (Neg-Trace) mg/dL Urine Glucose (UA) Negative (Negative) mg/dL - Imaging Impressions Chest X-Ray 02/22/18 16:08 CONCLUSION: 1. Hypoinflation with minimal atelectatic changes above the left hemidiaphragm. 2. There is some minimal interstitial prominence which may be partially due to the low lung volumes although some degree of vascular congestion/volume overload cannot be excluded. No miguel failure. Head CT 02/22/18 16:08 CONCLUSION: 1. 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 2. 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 3. Nothing acute to explain current clinical symptoms. . Physical Exam Vital signs: Vital Signs 02/22/18 16:07 02/22/18 16:10 02/22/18 17:50 Temperature 97.7 F Pulse Rate 62 65 71 Respiratory Rate 20 17 Blood Pressure 207/87 H 208/86 H Pulse Oximetry 100 100 100 02/22/18 19:30 02/22/18 21:30 02/22/18 21:51 Temperature 98.1 F Pulse Rate 64 78 71 Respiratory Rate 20 16 18 Blood Pressure 200/91 H 165/66 H 161/57 H Pulse Oximetry 100 100 02/22/18 23:24 02/22/18 23:29 02/23/18 00:00 Temperature 98.1 F Pulse Rate 69 66 Respiratory Rate 15 Blood Pressure 172/78 H Pulse Oximetry 95 99 02/23/18 04:00 02/23/18 08:00 02/23/18 09:27 Temperature 97.9 F 97.7 F Pulse Rate 58 L 57 L Respiratory Rate 16 18 Blood Pressure 141/65 H 161/75 H Pulse Oximetry 96 97 97 Intake & Output 02/22/18 02/23/18 02/23/18 18:59 06:59 18:59 Intake Total 1210 / 1210 1000 / 1000 Output Total 450 / 450 Balance 1210 / 1210 -450 / -450 1000 / 1000 Weight 63.503 kg 57.5 kg Intake: IV 1210 / 1210 1000 / 1000 LR 1000 mL Inj 1,000 ML @ 100 1000 / 1000 mls/hr IV.CONT .Q10H NIDHI Rx#: [id number] Calcium Chloride Inj 1 GM In NS 110 / 110 Inj 100 ML @ 110 mls/hr IV.SIG ONCE ONE Rx#:[id number] NS Inj 1,000 ML @ 1000 mls/hr 1000 / 1000 IV.SIG BOLUS NIDHI Rx#:[id number] Rocephin Inj 1,000 MG In NS Inj 100 / 100 100 ML @ 200 mls/hr IV.SIG ONCE ONE Rx#:[id number] Output: Urine 450 / 450 Other: # Incontinent Voids 2 Date of Last Bowel Movement 02/23/18 Weight On Admission 57.5 kg Narrative: General: Very pleasant demeanor, no distress, appears comfortable Skin: No rashes or lesions, no sacral ulcers. Bilaterally on the lower legs around the ankles is some skin breakdown, no drainage or abscess about these areas. No ulcers on her feet present. HEENT: Normocephalic, no conjunctivitis, no nasal discharge, moist mucous membranes Neck: Supple, no lymphadenopathy, no thyromegaly CV: RRR, has systolic ejection murmur over aortic valve, no rubs or gallops, regular pulses, normal cap refill Lungs: CTAB, no wheezing, rales, or rhonchi Ext: No swelling, fair range of motion Neuro: A&O X3, CN intact, normal upper and lower body strength/sensation Psych: Fair insight and judgment, does not reports depressed mood - Urinary Catheter Management Straight Cath placed during this visit: yes Reason for continuing: Not indwelling catheter Insertion date: 02/22/18 Insertion time: 16:22 Assessment and Plan - Assessment (1) Altered mental status Code(s): R41.82 - Altered mental status, unspecified Status: Acute Plan: Likely delirium, possible precipitating cause is UTI. Has urinary urgency but no dysuria or flank tenderness. Differential for delirium is broad, including medication side effect. She is on memantine for dementia. Lives at group home , received 03/09 care. At this time, delirium is starting to clear, appears much better today, however, not quite back to her baseline. Will continue to monitor for another night. - Continue management of UTI - Frequent orientation, blinds open in day, dark at night, maintain good sleep- wake cycle - Avoid anticholinergics and other medications that can precipitate delirium - MCV elevated, check B12 and folate, replace if needed (2) Acute UTI Code(s): N39.0 - Urinary tract infection, site not specified Status: Acute Plan: UA suggestive of acute UTI. Ceftriaxone in ED. -Follow-up urine culture -Ceftriaxone 1 g daily -Monitor for signs of pyelonephritis (3) GIULIA (acute kidney injury) Code(s): N17.9 - Acute kidney failure, unspecified Status: Acute Plan: Creatinine 2.32 on admission 1.15-1.28 in July 2016. Uncertain baseline. Creatinine improved to 1.90 today. - Continue IV fluids, somewhat dehydrated at admission - Once eating/drinking well, can discontinue IV fluids (4) Anemia Code(s): D64.9 - Anemia, unspecified Status: Acute Plan: History of anemia. -Continue home iron - MCV elevated, check B12/folate (5) Depression Code(s): F32.9 - Major depressive disorder, single episode, unspecified Status : Acute Plan: History of depression. This does not appear to be exacerbation of her depression , but should be considered. -Continue home sertraline (6) Diabetes Code(s): E11.9 - Type 2 diabetes mellitus without complications Status: Acute Plan: History of diabetes. -Low-dose sliding scale insulin (7) HTN (hypertension) Code(s): I10 - Essential (primary) hypertension Status: Acute Plan: History of hypertension. -Continue home medications hydralazine, losartan, diltiazem (8) HLD (hyperlipidemia) Code(s): E78.5 - Hyperlipidemia, unspecified Status: Acute Plan: History of hyperlipidemia -Continue atorvastatin 40 mg - In outpatient setting, this could be considered to be discontinued to avoid polypharmacy (9) Nutrition, metabolism, and development symptoms Code(s): R63.8 - Other symptoms and signs concerning food and fluid intake Status: Acute Plan: Fluids: Maintenance fluids, add dextrose to fluids if NPO, transition to PO once eating/drinking well Electrolytes: Monitor and correct as needed, had hyperkalemia that is resolved Nutrition: NPO until swallow study - Assessment and Plan Discussed Condition With: Seen and discussed with Dr. Anaya, Dr. Sainz Discharge Planning: Pending resolution of delirium, will plan to discharge back to group home (1) Altered mental status Qualifiers: Altered mental status type: delirium Qualified Code(s): R41.0 - Disorientation, unspecified
[2018-02-23] MEDS: Dextrose 5%/NaCl 0.45% Inj 1,000 ML IV.CONT SCH (13:05)
[2018-02-23 13:38] LABS: Baso # (Auto) 0.1 th/mm3 (0.0-0.2); Baso % (Auto) 0.9 % (0.0-2.0); Eos # (Auto) 0.5 th/mm3 (0.0-0.4); Eos % (Auto) 6.5 % (0.0-4.0); Hematocrit 29.2 % (35.0-46.0); Hemoglobin 9.7 gm/dL (11.6-15.3); Lymph % (Auto) 13.6 % (9.0-44.0); Mean Corpuscular HGB Conc 33.2 % (32.0-36.0); Mean Corpuscular Hemoglobin 34.3 pg (27.0-34.0); Mean Corpuscular Volume 103.4 fL (80.0-100.0); Mean Platelet Volume 8.7 fL (7.0-11.0); Mono # (Auto) 0.4 th/mm3 (0.0-0.9); Mono % (Auto) 5.5 % (0.0-8.0); Neut # (Auto) 5.4 th/mm3 (1.8-7.7); Neut % (Auto) 73.5 % (16.0-70.0); Platelet Count 174 th/mm3 (150-450); Red Blood Count 2.83 mil/mm3 (4.00-5.30); White Blood Count 7.4 th/mm3 (4.0-11.0)
[2018-02-23 13:55] LABS: Folate 11.7 ng/mL (3.1-17.5)
[2018-02-23] MEDS: Enoxaparin Inj 30 MG/0.3 ML Syringe SQ SCH (18:31)
[2018-02-23] MEDS: dilTIAZem CD 240 MG Capsule PO SCH (18:31)
[2018-02-23] MEDS: Furosemide 20 MG Tablet PO SCH (18:32)
[2018-02-23] MEDS: Allopurinol 100 MG Tablet PO SCH (18:32)
[2018-02-23] MEDS: Sertraline 50 MG Tablet PO SCH (18:32)
[2018-02-24] MEDS: Dextrose 5%/NaCl 0.45% Inj 1,000 ML IV.CONT SCH ×2 (00:33→12:54)
[2018-02-24 08:20] LABS: Baso # (Auto) 0.1 th/mm3 (0.0-0.2); Baso % (Auto) 1.1 % (0.0-2.0); Eos # (Auto) 0.6 th/mm3 (0.0-0.4); Eos % (Auto) 8.5 % (0.0-4.0); Hematocrit 27.2 % (35.0-46.0); Hemoglobin 9.3 gm/dL (11.6-15.3); Lymph # (Auto) 1.1 th/mm3 (1.0-4.8); Lymph % (Auto) 14.7 % (9.0-44.0); Mean Corpuscular HGB Conc 34.1 % (32.0-36.0); Mean Corpuscular Hemoglobin 34.7 pg (27.0-34.0); Mean Corpuscular Volume 101.7 fL (80.0-100.0); Mono # (Auto) 0.7 th/mm3 (0.0-0.9); Mono % (Auto) 8.7 % (0.0-8.0); Neut # (Auto) 5.1 th/mm3 (1.8-7.7); Platelet Count 163 th/mm3 (150-450); Red Blood Count 2.67 mil/mm3 (4.00-5.30); Red Cell Distribution Width 13.9 % (11.6-17.2); White Blood Count 7.6 th/mm3 (4.0-11.0)
--- NOTE | 2018-02-24 08:27 | P.PNFP ---
Subjective Interval history: Patient seen and examined this morning. Patient reports she is feeling significantly better. Denies nausea, vomiting, fever, chills, chest pain, shortness of breath, left arm or jaw pain, abdominal pain, dysuria, urinary frequency, change in urine color or smell, change in bowel movements, bloody bowel movements. No other complaints today. <Ag Howard A - 02/24/18 09:08> Results - Labs Result diagrams: 02/24/18 07:07 02/24/18 07:07 <Ag Vaelntin - 02/24/18 16:23> Abnormal lab results 02/23/18 02/23/18 02/23/18 Range/Units 17:58 18:00 20:46 RBC (4.00-5.30) mil/mm3 Hgb (11.6-15.3) gm/dL Hct (35.0-46.0) % MCV (80.0-100.0) fL MCH (27.0-34.0) pg [place] % (Auto) (0.0-8.0) % Eos % (Auto) (0.0-4.0) % Eos # (Auto) (0.0-0.4) th/mm3 Chloride (98-107) meq/L BUN (7-18) mg/dL Creatinine (0.50-1.00) mg/dL Estimated GFR (>89) mL/min POC Glucose Greater than 600 H* 155 H 295 H (68-110) mg/dl Random Glucose (74-106) mg/dL Calcium (8.5-10.1) mg/dL 02/24/18 02/24/18 02/24/18 Range/Units 07:07 07:07 08:34 RBC 2.67 L (4.00-5.30) mil/mm3 Hgb 9.3 L (11.6-15.3) gm/dL Hct 27.2 L (35.0-46.0) % MCV 101.7 H (80.0-100.0) fL MCH 34.7 H (27.0-34.0) pg [place] % (Auto) 8.7 H (0.0-8.0) % Eos % (Auto) 8.5 H (0.0-4.0) % Eos # (Auto) 0.6 H (0.0-0.4) th/mm3 Chloride 112 H (98-107) meq/L BUN 31 H (7-18) mg/dL Creatinine 1.97 H (0.50-1.00) mg/dL Estimated GFR 24 L (>89) mL/min POC Glucose 183 H (68-110) mg/dl Random Glucose 179 H (74-106) mg/dL Calcium 8.1 L D (8.5-10.1) mg/dL 02/24/18 Range/Units 11:48 RBC (4.00-5.30) mil/mm3 Hgb (11.6-15.3) gm/dL Hct (35.0-46.0) % MCV (80.0-100.0) fL MCH (27.0-34.0) pg [place] % (Auto) (0.0-8.0) % Eos % (Auto) (0.0-4.0) % Eos # (Auto) (0.0-0.4) th/mm3 Chloride (98-107) meq/L BUN (7-18) mg/dL Creatinine (0.50-1.00) mg/dL Estimated GFR (>89) mL/min POC Glucose 230 H (68-110) mg/dl Random Glucose (74-106) mg/dL Calcium (8.5-10.1) mg/dL Short CBC 02/24/18 Range/Units 07:07 WBC 7.6 (4.0-11.0) th/mm3 Hgb 9.3 L (11.6-15.3) gm/dL Hct 27.2 L (35.0-46.0) % Plt Count 163 (150-450) th/mm3 [facility] 02/24/18 07:07 Sodium 143 Potassium 3.7 Chloride 112 H Carbon Dioxide 23.9 BUN 31 H Creatinine 1.97 H Calcium 8.1 L D <Ag Valentin L - 02/24/18 16:23> Abnormal lab results 02/22/18 02/23/18 02/23/18 Range/Units 16:20 10:45 13:00 RBC 2.83 L (4.00-5.30) mil/mm3 Hgb 9.7 L (11.6-15.3) gm/dL Hct 29.2 L (35.0-46.0) % MCV 103.4 H (80.0-100.0) fL MCH 34.3 H (27.0-34.0) pg Neut % (Auto) 73.5 H (16.0-70.0) % [place] % (Auto) (0.0-8.0) % Eos % (Auto) 6.5 H (0.0-4.0) % Eos # (Auto) 0.5 H (0.0-0.4) th/mm3 Chloride 114 H (98-107) meq/L BUN 35 H (7-18) mg/dL Creatinine 1.90 H (0.50-1.00) mg/dL Estimated GFR 25 L (>89) mL/min POC Glucose (68-110) mg/dl Random Glucose 112 H (74-106) mg/dL Urine Clarity Cloudy H (Clear) Urine Protein 30 H (Neg-Trace) mg/dL Urine Nitrate Positive H (Negative) Ur Leukocyte Esterase Large H (Negative) Urine Bacteria Rare H (None) /hpf 02/23/18 02/23/18 02/23/18 Range/Units 17:58 18:00 20:46 RBC (4.00-5.30) mil/mm3 Hgb (11.6-15.3) gm/dL Hct (35.0-46.0) % MCV (80.0-100.0) fL MCH (27.0-34.0) pg Neut % (Auto) (16.0-70.0) % [place] % (Auto) (0.0-8.0) % Eos % (Auto) (0.0-4.0) % Eos # (Auto) (0.0-0.4) th/mm3 Chloride (98-107) meq/L BUN (7-18) mg/dL Creatinine (0.50-1.00) mg/dL Estimated GFR (>89) mL/min POC Glucose Greater than 600 H* 155 H 295 H (68-110) mg/dl Random Glucose (74-106) mg/dL Urine Clarity (Clear) Urine Protein (Neg-Trace) mg/dL Urine Nitrate (Negative) Ur Leukocyte Esterase (Negative) Urine Bacteria (None) /hpf 02/24/18 Range/Units 07:07 RBC 2.67 L (4.00-5.30) mil/mm3 Hgb 9.3 L (11.6-15.3) gm/dL Hct 27.2 L (35.0-46.0) % MCV 101.7 H (80.0-100.0) fL MCH 34.7 H (27.0-34.0) pg Neut % (Auto) (16.0-70.0) % [place] % (Auto) 8.7 H (0.0-8.0) % Eos % (Auto) 8.5 H (0.0-4.0) % Eos # (Auto) 0.6 H (0.0-0.4) th/mm3 Chloride (98-107) meq/L BUN (7-18) mg/dL Creatinine (0.50-1.00) mg/dL Estimated GFR (>89) mL/min POC Glucose (68-110) mg/dl Random Glucose (74-106) mg/dL Urine Clarity (Clear) Urine Protein (Neg-Trace) mg/dL Urine Nitrate (Negative) Ur Leukocyte Esterase (Negative) Urine Bacteria (None) /hpf Short CBC 02/23/18 02/24/18 Range/Units 13:00 07:07 WBC 7.4 7.6 (4.0-11.0) th/mm3 Hgb 9.7 L 9.3 L (11.6-15.3) gm/dL Hct 29.2 L 27.2 L (35.0-46.0) % Plt Count 174 163 (150-450) th/mm3 BMP 02/23/18 10:45 Sodium 145 Potassium 4.0 D Chloride 114 H Carbon Dioxide 21.0 BUN 35 H Creatinine 1.90 H Calcium 9.1 Urine 02/22/18 Range/Units 16:20 Urine Color Yellow (Yellw/Straw) Urine Clarity Cloudy H (Clear) Urine pH 7.0 (5.0-8.5) Ur Specific [place] 1.008 (1.002-1.035) Urine Protein 30 H (Neg-Trace) mg/dL Urine Glucose (UA) Negative (Negative) mg/dL <Ag Howard A - 02/24/18 08:27> Physical Exam Vital signs: Vital Signs 02/23/18 19:45 02/23/18 20:00 02/24/18 00:00 Temperature 98.1 F 98.5 F Pulse Rate 67 66 60 Respiratory Rate 16 17 Blood Pressure 142/61 H 124/59 L Pulse Oximetry 94 L 94 L 02/24/18 03:52 02/24/18 04:00 02/24/18 08:00 Temperature 98.1 F 97.8 F Pulse Rate 52 L 58 L 53 L Respiratory Rate 15 16 Blood Pressure 133/56 L 149/67 H Pulse Oximetry 100 100 02/24/18 09:00 02/24/18 12:00 Temperature 98.1 F Pulse Rate 52 L 59 L Respiratory Rate 16 Blood Pressure 148/72 H Pulse Oximetry 100 Intake & Output 02/23/18 02/24/18 02/24/18 18:59 06:59 18:59 Intake Total 1500 / 1500 1100 / 1100 1000 / 1000 Output Total 300 / 300 Balance 1500 / 1500 800 / 800 1000 / 1000 Weight 57.9 kg Intake: IV 1500 / 1500 1100 / 1100 1000 / 1000 D5W/1/2 NS Inj 1,000 ML @ 100 1000 / 1000 1000 / 1000 mls/hr IV.CONT .Q10H NIDHI Rx#: [id number] LR 1000 mL Inj 1,000 ML @ 100 1500 / 1500 mls/hr IV.CONT .Q10H NIDHI Rx#: [id number] Rocephin Inj 1,000 MG In NS Inj 100 / 100 100 ML @ 200 mls/hr IV.SIG Q24H NIDHI Rx#:[id number] Output: Urine 300 / 300 Other: # Incontinent Voids 2 Date of Last Bowel Movement 02/23/18 # Bowel Movements 800 <Ag Valentin L - 02/24/18 16:23> Vital Signs 02/23/18 09:27 02/23/18 12:00 02/23/18 16:00 Temperature 98.1 F 98.5 F Pulse Rate 60 57 L Respiratory Rate 18 18 Blood Pressure 173/70 H 167/74 H Pulse Oximetry 97 96 97 02/23/18 19:45 02/23/18 20:00 02/24/18 00:00 Temperature 98.1 F 98.5 F Pulse Rate 67 66 60 Respiratory Rate 16 17 Blood Pressure 142/61 H 124/59 L Pulse Oximetry 94 L 94 L 02/24/18 03:52 02/24/18 04:00 Temperature 98.1 F Pulse Rate 52 L 58 L Respiratory Rate 15 Blood Pressure 133/56 L Pulse Oximetry 100 Intake & Output 02/23/18 02/24/18 02/24/18 18:59 06:59 18:59 Intake Total 1500 / 1500 1100 / 1100 Output Total 300 / 300 Balance 1500 / 1500 800 / 800 Weight 57.9 kg Intake: IV 1500 / 1500 1100 / 1100 D5W/1/2 NS Inj 1,000 ML @ 100 1000 / 1000 mls/hr IV.CONT .Q10H NIDHI Rx#: [id number] LR 1000 mL Inj 1,000 ML @ 100 1500 / 1500 mls/hr IV.CONT .Q10H NIDHI Rx#: [id number] Rocephin Inj 1,000 MG In NS Inj 100 / 100 100 ML @ 200 mls/hr IV.SIG Q24H NIDHI Rx#:[id number] Output: Urine 300 / 300 Other: # Incontinent Voids 2 Date of Last Bowel Movement 02/23/18 # Bowel Movements 800 <Norma UrbanAg Aldrich 02/24/18 08:27> Narrative: GENERAL: Laying in bed, no acute distress, alert to person/place/time SKIN: Warm and dry. HEAD: Normocephalic. EYES: No scleral icterus. No injection or drainage. NECK: Supple, trachea midline. No JVD or lymphadenopathy. CARDIOVASCULAR: Regular rate and rhythm gallops, or rubs. Systolic murmur. RESPIRATORY: Breath sounds equal bilaterally. No accessory muscle use. GASTROINTESTINAL: Abdomen soft, non-tender, nondistended. MUSCULOSKELETAL: No cyanosis, or edema. BACK: Nontender without obvious deformity. No CVA tenderness. <Ag Howard 02/24/18 09:08> - Urinary Catheter Management Straight Cath placed during this visit: no <Ag Valentin 02/24/18 16:23> yes <Ag Howard A 02/24/18 09:08> Reason for continuing: Not indwelling catheter <Ag Howard 08:27> Insertion date: 02/22/18 <Ag Howard 02/24/18 08:27> Insertion time: 16:22 <Ag Howard 02/24/18 08:27> Assessment and Plan - Assessment (1) Altered mental status Code(s): R41.82 - Altered mental status, unspecified Status: Acute (2) Acute UTI Code(s): N39.0 - Urinary tract infection, site not specified Status: Acute (3) GIULIA (acute kidney injury) Code(s): N17.9 - Acute kidney failure, unspecified Status: Acute (4) Anemia Code(s): D64.9 - Anemia, unspecified Status: Acute (5) Depression Code(s): F32.9 - Major depressive disorder, single episode, unspecified Status : Acute (6) Diabetes Code(s): E11.9 - Type 2 diabetes mellitus without complications Status: Acute (7) HTN (hypertension) Code(s): I10 - Essential (primary) hypertension Status: Acute (8) HLD (hyperlipidemia) Code(s): E78.5 - Hyperlipidemia, unspecified Status: Acute (9) Nutrition, metabolism, and development symptoms Code(s): R63.8 - Other symptoms and signs concerning food and fluid intake Status: Acute Plan: Correction: She is on regular diet <Ag Valentin - 02/24/18 16:23> (1) Altered mental status Code(s): R41.82 - Altered mental status, unspecified Status: Acute Plan: Likely delirium, possible precipitating cause is UTI. Has urinary urgency but no dysuria or flank tenderness. Differential for delirium is broad, including medication side effect. She is on memantine for dementia. Lives at [facility] , received 03/09 care. Significantly improved from admission. - Continue management of UTI - Frequent orientation, blinds open in day, dark at night, maintain good sleep- wake cycle - Avoid anticholinergics and other medications that can precipitate delirium - MCV elevated, check B12 and folate, replace if needed (2) Acute UTI Code(s): N39.0 - Urinary tract infection, site not specified Status: Acute Plan: UA suggestive of acute UTI. Ceftriaxone in ED. -urine bacteria Morganella morganii isolated. Nearly pansensitive, only resistant to Augmentin. -Ceftriaxone 1 g daily -Monitor for signs of pyelonephritis (3) GIULIA (acute kidney injury) Code(s): N17.9 - Acute kidney failure, unspecified Status: Acute Plan: Creatinine 2.32 on admission 1.15-1.28 in July 2016. Uncertain baseline. Creatinine improved from admission - Continue IV fluids, somewhat dehydrated at admission - Once eating/drinking well, can discontinue IV fluids (4) Anemia Code(s): D64.9 - Anemia, unspecified Status: Acute Plan: History of anemia. -Continue home iron - MCV elevated, B12/folate WNL (5) Depression Code(s): F32.9 - Major depressive disorder, single episode, unspecified Status : Acute Plan: History of depression. This does not appear to be exacerbation of her depression , but should be considered. -Continue home sertraline (6) Diabetes Code(s): E11.9 - Type 2 diabetes mellitus without complications Status: Acute Plan: History of diabetes. -Low-dose sliding scale insulin (7) HTN (hypertension) Code(s): I10 - Essential (primary) hypertension Status: Acute Plan: History of hypertension. -Continue home medications hydralazine, losartan, diltiazem (8) HLD (hyperlipidemia) Code(s): E78.5 - Hyperlipidemia, unspecified Status: Acute Plan: History of hyperlipidemia -Continue atorvastatin 40 mg - In outpatient setting, this could be considered to be discontinued to avoid polypharmacy (9) Nutrition, metabolism, and development symptoms Code(s): R63.8 - Other symptoms and signs concerning food and fluid intake Status: Acute Plan: Fluids: Maintenance fluids, add dextrose to fluids if NPO, transition to PO once eating/drinking well Electrolytes: Monitor and correct as needed, had hyperkalemia that is resolved Nutrition: NPO until swallow study <Ag Howard A - 02/24/18 09:02> - Attending Attestation The exam, history, and the medical decision-making described in the above note were completed with the assistance of the resident physician. I reviewed and agree with the findings presented. I attest that I had a [id number] encounter with the patient on the same day, and personally performed and documented my assessment and findings in the medical record. I saw the patient this afternoon. She is lying in bed, in no distress. Not complaining of pain. Able to tell me year, location, and reason she is in hospital. Overall appearing much better. No family members at the bedside. Has UTI, will continue to treat. Plan to transfer back to [facility]. She is medically stable for now, delirium resolved. <Ag Valentin - 02/24/18 16:23> <Faille [email or web address] - Last Filed: 02/24/18 09:02> (1) Altered mental status Qualifiers: Altered mental status type: delirium Qualified Code(s): R41.0 - Disorientation, unspecified <Ag Valentin L - Last Filed: 02/24/18 16:23> (1) Altered mental status Qualifiers: Altered mental status type: delirium Qualified Code(s): R41.0 - Disorientation, unspecified <Faille [email or web address] - Last Filed: 02/24/18 09:02> (1) Altered mental status Qualifiers: Altered mental status type: delirium Qualified Code(s): R41.0 - Disorientation, unspecified <Ag Valentin L - Last Filed: 02/24/18 16:23> (1) Altered mental status Qualifiers: Altered mental status type: delirium Qualified Code(s): R41.0 - Disorientation, unspecified
[2018-02-24 08:45] LABS: Calcium 8.1 mg/dL (8.5-10.1); Carbon Dioxide 23.9 meq/L (21.0-32.0); Potassium 3.7 meq/L (3.5-5.1)
[2018-02-24] MEDS: Insulin NovoLOG Aspart Correctional Sugar Inj SQ SCH ×2 (09:21→12:55)
[2018-02-24] MEDS: Ascorbic Acid 500 MG Tablet PO SCH (09:22)
[2018-02-24] MEDS: dilTIAZem CD 240 MG Capsule PO SCH (09:22)
[2018-02-24] MEDS: Furosemide 20 MG Tablet PO SCH (09:22)
[2018-02-24] MEDS: Enoxaparin Inj 30 MG/0.3 ML Syringe SQ SCH (09:22)
[2018-02-24] MEDS: Allopurinol 100 MG Tablet PO SCH (09:22)
[2018-02-24] MEDS: Sertraline 50 MG Tablet PO SCH (09:22)
[2018-02-24] MEDS: Ferrous Sulfate 325 MG Tablet PO SCH ×2 (09:23→12:55)
[2018-02-24] MEDS: hydrALAZINE 50 MG Tablet PO SCH ×2 (09:23→12:55)
[2018-02-24] MEDS: Senna/Docusate Sodium 8.6/50 MG Tablet PO SCH (09:23)
--- NOTE | 2018-02-24 10:40 | P.DS ---
Date of admission: 02/22/18 19:31 Primary care physician: Woody Becker MD Brief History from admission: Patient is an 82-year-old female with past history of dementia, depression, diabetes, heart failure, hyperlipidemia, hypertension who presented to the ED for lethargy and altered mental status. Patient is a poor historian. Per the EMR and ER PA the patient's family noticed that they noticed altered mental status since yesterday and the patient has not been eating or drinking much today. The patient currently states that she feels that she is "fuzzy"possibly confused at this time. She denies nausea, vomiting, fever, chills, chest pain, left arm or jaw pain, lightheadedness, dizziness, changes in vision, headache, abdominal pain, diarrhea, constipation, dysuria, change in urine color or smell. Patient does note she has increased frequency of urination. No other complaints at this time. Per Patient: PMH: denies Surgical: none Family denies family history Social history: Denies alcohol, tobacco and illicit drugs Per EMR: Anemia (Acute) Dementia (Acute) Depression (Acute) Diabetes (Acute) Heart failure (Acute) Hyperlipidemia (Acute) Hypertension (Acute) Metabolic encephalopathy (Acute) Muscle weakness (Acute) Respiratory failure (Acute) Surgical history unknown (Acute) DS: Diagnosis - Discharge Diagnosis (1) Altered mental status Status: Acute (2) Acute UTI Status: Acute (3) GIULIA (acute kidney injury) Status: Acute (4) Anemia Status: Acute (5) Depression Status: Acute (6) Diabetes Status: Acute (7) HTN (hypertension) Status: Acute (8) HLD (hyperlipidemia) Status: Acute (9) Nutrition, metabolism, and development symptoms Status: Acute DS: Summary Hospital Course: Patient made 02/22/18 with altered mental status and hypertensive urgency. During course of stay patient's blood pressure was slowly and appropriately titrated down, home medications were continued. Patient was found to have a UTI on UA. Causative organism found to be Morganella morganii, only resistant to Augmentin otherwise pansensitive. Patient received ceftriaxone each day when the hospital. Significant improvement in mental status prior to discharge. - Time Spent with Patient Total time spent providing and/or coordinating discharge services: Less than 30 minutes - Quality: VTE Deep Vein Thrombosis/Pulmonary Embolism Present on Admission: No Exam Vital signs: Vital Signs 02/23/18 12:00 02/23/18 16:00 02/23/18 19:45 Temperature 98.1 F 98.5 F Pulse Rate 60 57 L 67 Respiratory Rate 18 18 Blood Pressure 173/70 H 167/74 H Pulse Oximetry 96 97 02/23/18 20:00 02/24/18 00:00 02/24/18 03:52 Temperature 98.1 F 98.5 F Pulse Rate 66 60 52 L Respiratory Rate 16 17 Blood Pressure 142/61 H 124/59 L Pulse Oximetry 94 L 94 L 02/24/18 04:00 02/24/18 08:00 02/24/18 09:00 Temperature 98.1 F 97.8 F Pulse Rate 58 L 53 L 52 L Respiratory Rate 15 16 Blood Pressure 133/56 L 149/67 H Pulse Oximetry 100 100 Intake & Output 02/23/18 02/24/18 02/24/18 18:59 06:59 18:59 Intake Total 1500 / 1500 1100 / 1100 Output Total 300 / 300 Balance 1500 / 1500 800 / 800 Weight 57.9 kg Intake: IV 1500 / 1500 1100 / 1100 D5W/1/2 NS Inj 1,000 ML @ 100 1000 / 1000 mls/hr IV.CONT .Q10H NIDHI Rx#: [id number] LR 1000 mL Inj 1,000 ML @ 100 1500 / 1500 mls/hr IV.CONT .Q10H NIDHI Rx#: [id number] Rocephin Inj 1,000 MG In NS Inj 100 / 100 100 ML @ 200 mls/hr IV.SIG Q24H NIDHI Rx#:[id number] Output: Urine 300 / 300 Other: # Incontinent Voids 2 Date of Last Bowel Movement 02/23/18 # Bowel Movements 800 Results Procedures completed during hospitalization: None Labs on day of discharge: Labs from last 24 hours 02/24/18 02/24/18 02/24/18 08:34 07:07 07:07 WBC 7.6 RBC 2.67 L Hgb 9.3 L Hct 27.2 L MCV 101.7 H MCH 34.7 H MCHC 34.1 RDW 13.9 Plt Count 163 MPV 9.0 Neut % (Auto) 67.0 Lymph % (Auto) 14.7 Levy % (Auto) 8.7 H Eos % (Auto) 8.5 H Baso % (Auto) 1.1 Neut # (Auto) 5.1 Lymph # (Auto) 1.1 Levy # (Auto) 0.7 Eos # (Auto) 0.6 H Baso # (Auto) 0.1 WBC Differential . Differential Comment Auto diff final Sodium 143 Potassium 3.7 Chloride 112 H Carbon Dioxide 23.9 Anion Gap 7 BUN 31 H Creatinine 1.97 H Estimated GFR 24 L POC Glucose 183 H Random Glucose 179 H Calcium 8.1 L D Vitamin B12 Folate 02/23/18 02/23/18 02/23/18 20:46 18:00 17:58 WBC RBC Hgb Hct MCV MCH MCHC RDW Plt Count MPV Neut % (Auto) Lymph % (Auto) Levy % (Auto) Eos % (Auto) Baso % (Auto) Neut # (Auto) Lymph # (Auto) Levy # (Auto) Eos # (Auto) Baso # (Auto) WBC Differential Differential Comment Sodium Potassium Chloride Carbon Dioxide Anion Gap BUN Creatinine Estimated GFR POC Glucose 295 H 155 H Greater than 600 H* Random Glucose Calcium Vitamin B12 Folate 02/23/18 02/23/18 02/23/18 13:00 10:45 10:45 WBC 7.4 RBC 2.83 L Hgb 9.7 L Hct 29.2 L MCV 103.4 H MCH 34.3 H MCHC 33.2 RDW 14.0 D Plt Count 174 MPV 8.7 Neut % (Auto) 73.5 H Lymph % (Auto) 13.6 Levy % (Auto) 5.5 Eos % (Auto) 6.5 H Baso % (Auto) 0.9 Neut # (Auto) 5.4 Lymph # (Auto) 1.0 Levy # (Auto) 0.4 Eos # (Auto) 0.5 H Baso # (Auto) 0.1 WBC Differential . Differential Comment Auto diff final Sodium 145 Potassium 4.0 D Chloride 114 H Carbon Dioxide 21.0 Anion Gap 10 BUN 35 H Creatinine 1.90 H Estimated GFR 25 L POC Glucose Random Glucose 112 H Calcium 9.1 Vitamin B12 648 Folate 11.7 - Impressions ITS Impressions Chest X-Ray 02/22/18 16:08 CONCLUSION: 1. Hypoinflation with minimal atelectatic changes above the left hemidiaphragm. 2. There is some minimal interstitial prominence which may be partially due to the low lung volumes although some degree of vascular congestion/volume overload cannot be excluded. No miguel failure. Head CT 02/22/18 16:08 CONCLUSION: 1. 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 2. 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 3. Nothing acute to explain current clinical symptoms. . Discharge Plan - Discharge Disposition Patient Disposition: Discharge Home - Discharge Condition Condition: Stable - Discharge Order Discharge Orders: Discharge Order (Routine); Ordered 02/24/18 Ordered By: Ag Green R2 - Physicians Team Primary Care Provider: Woody Becker V Attending Provider: Ag Valentin
== END 2018-02-24 17:54 | disposition home or self-care (01) | DRG 689 ==
LOC: NEPE 15:58 → NEDA 19:31 → N04 21:40
PROVIDERS: ADMIT Family Medicine; ATTEND Family Medicine
CPT/HCPCS: 70450; 71010; 71045; 80048; 80053; 81001; 82140; 82550; 82607; 82746; 82948; 82962; 83605; 83735; 84443; 84484; 85025; 85610; 85730; 87077; 87086; 87186; 90765; 90768; 90775; 92526; 92610; 93005; 96365; 96368; 96375; 97162; 99285; G0195; J0696; J1650; J1815; J7030; J7120; P9612